=== PATIENT | female | born 1965 | race African-American/Black ===

== ENCOUNTER 2018-04-04 20:36 | Inpatient (IN) ==
[2018-04-04 21:24] LABS: Basophils % 0.2 % (0.0-0.8); Eosinophils # 0.2 10*3/uL (0.0-0.87); Eosinophils % 1.6 % (0.00-10.9); Hemoglobin 7.8 GM/DL (12.0-16.0); Immature Granulocytes % 0.5 %; Immature Granulocytes Absolute 0.06 #; Lymphocytes # 0.3 10*3/uL (1.4-4.0); Lymphocytes % 2.5 % (21.3-54.2); Mean Corpuscular HGB Conc 31.2 GM/DL (32-36); Mean Corpuscular Hemoglobin 27 PG (27-34); Mean Corpuscular Volume 87.7 FL (87-102); Mean Platelet Volume 11.9 FL (9.6-12.0); Monocytes # 0.6 10*3/uL (0.11-0.8); Monocytes % 5.6 % (1.7-12.7); Neutrophils % 89.6 % (38.7-73.9); Platelet Count 206 T/CUMM (130-400); Red Blood Count 2.85 MC/CUMM (3.8-5.5); Red Cell Distribution Width 18.6 % (9.3-17.3); White Blood Count 11.1 T/CUMM (4-12)
[2018-04-04 21:40] LABS: Alanine Aminotransferase 29 U/L (13-56); Albumin 3.2 G/DL (3.4-5.0); Alkaline Phosphatase 217 U/L (45-117); Aspartate Amino Transferase 30 U/L (0-37); Blood Urea Nitrogen 29 MG/DL (7-18); Calcium 9.6 MG/DL (8.5-10.1); Glucose 217 MG/DL (74-106); Osmolality,Calculated 289.5 MOS/KG (273-304); Potassium 3.4 MMOL/L (3.5-5.1); Sodium 139 MMOL/L (136-145); Total Protein 8.4 G/DL (6.4-8.3)
[2018-04-04 21:46] LABS: Lactic Acid 2.6 MMOL/L (0.4-2.0)
[2018-04-04] MEDS ORDERED: CEFEPIME 1,000 MG in SODIUM CHLORIDE 0.9% 100 ML IV STA (22:21)
[2018-04-04] MEDS ORDERED: VANCOMYCIN INJ 500 MG in SODIUM CHLORIDE 0.9% 100 ML IV STA (22:22)
[2018-04-04 23:01] LABS: Sedimentation Rate-Westergren 98 MM/HR (0-30)
[2018-04-04 23:05] LABS: Eosinophils 1 % (0-10); Lymphocytes 6 % (20-55); Platelet Estimate Adequate; Segmented Neutrophils 92 % (50-85); Total Cells Counted 100
[2018-04-04 23:06] LABS: Hypochromasia 1+; Microcytosis 1+
[2018-04-04] MEDS ORDERED: CINACALCET 30 MG TABLET PO SCH (23:45)
[2018-04-04] MEDS ORDERED: DEXTROSE 50% 25 GM/50 ML VIAL IV PRN (23:45)
[2018-04-04] MEDS ORDERED: GLUCAGON 1 MG VIAL IM PRN (23:45)
[2018-04-04] MEDS ORDERED: ALBUTEROL 2.5 MG/3 ML NEB RESP TX PRN (23:52)
[2018-04-04] MEDS ORDERED: FLUTICASONE/SALMETEROL 250-50 DISKUS 14 DOSE INH PRN (23:52)
[2018-04-05] MEDS: traZODone 50 MG TABLET PO SCH ×2 (02:04→21:10)
[2018-04-05] MEDS: ATORVASTATIN 40 MG TABLET PO SCH ×2 (02:04→21:10)
[2018-04-05] MEDS: DOCUSATE SODIUM 100 MG CAPSULE PO SCH ×3 (02:05→21:10)
[2018-04-05] MEDS: levETIRAcetam 500 MG TABLET PO SCH ×3 (02:05→21:10)
[2018-04-05 08:26] LABS: Albumin 2.4 G/DL (3.4-5.0); Bilirubin,Total 0.6 MG/DL (0.2-1.0); Calcium 9.2 MG/DL (8.5-10.1); Osmolality,Calculated 289.7 MOS/KG (273-304); Potassium 3.8 MMOL/L (3.5-5.1); Total Protein 6.9 G/DL (6.4-8.3)
[2018-04-05] MEDS: PARoxetine 20 MG TABLET PO SCH (09:11)
[2018-04-05] MEDS: INSULIN REGULAR 100 UNIT/ML SUBCUT SCH ×4 (09:11→21:11)
[2018-04-05] MEDS: ENOXAPARIN 30 MG/0.3 ML SYRINGE SUBCUT SCH (09:11)
[2018-04-05] MEDS: VALSARTAN 160 MG TABLET PO SCH (09:12)
[2018-04-05] MEDS: METOPROLOL TARTRATE 100 MG TABLET PO SCH ×2 (09:12→21:10)
[2018-04-05] MEDS: PANTOPRAZOLE 40 MG TABLET PO SCH (09:12)
[2018-04-05] MEDS: amLODIPine 10 MG TABLET PO SCH (09:13)
[2018-04-05] MEDS: SEVELAMER CARBONATE 800 MG TABLET PO SCH ×3 (09:13→16:26)
[2018-04-05 09:23] LABS: Basophils % 0.2 % (0.0-0.8); Eosinophils # 0.2 10*3/uL (0.0-0.87); Eosinophils % 1.8 % (0.00-10.9); Hematocrit 20.6 VOL% (35.7-47.0); Immature Granulocytes % 0.4 %; Immature Granulocytes Absolute 0.04 #; Lymphocytes # 0.3 10*3/uL (1.4-4.0); Lymphocytes % 3.4 % (21.3-54.2); Mean Corpuscular HGB Conc 31.1 GM/DL (32-36); Mean Corpuscular Hemoglobin 27 PG (27-34); Mean Platelet Volume 11.8 FL (9.6-12.0); Monocytes # 1.1 10*3/uL (0.11-0.8); Monocytes % 11.9 % (1.7-12.7); Neutrophils # 7.8 10*3/uL (1.4-7.4); Neutrophils % 82.3 % (38.7-73.9); Platelet Count 165 T/CUMM (130-400); Red Blood Count 2.34 MC/CUMM (3.8-5.5); Red Cell Distribution Width 18.5 % (9.3-17.3); White Blood Count 9.4 T/CUMM (4-12)
[2018-04-05 09:27] LABS: Hemoglobin 6.4 GM/DL (12.0-16.0)
[2018-04-05 09:39] LABS: Anisocytosis 1+; Eosinophils 1 % (0-10); Hypochromasia 1+; Lymphocytes 4 % (20-55); Metamyelocytes 1 %; Microcytosis 1+; Segmented Neutrophils 89 % (50-85); Total Cells Counted 100
[2018-04-05 09:40] LABS: Platelet Estimate Adequate
[2018-04-05] MEDS ORDERED: VANCOMYCIN INJ 750 MG in SODIUM CHLORIDE 0.9% 250 ML IV PRN (14:00)
[2018-04-05] MEDS ORDERED: SODIUM CHLORIDE 0.9% 1,000 ML IV PRN (17:28)
[2018-04-05] MEDS: ACETAMINOPHEN 325 MG TABLET PO PRN ×2 (17:40→21:44)
[2018-04-05] MEDS ORDERED: NON-FORMULARY MEDICATION (Esomeprazole Magnesium [Nexium] 40 MG) PO SCH (21:00)
[2018-04-05] MEDS: CEFEPIME 1,000 MG in SYRINGE 1 EACH IV SCH (21:12)
[2018-04-06] MEDS ORDERED: VANCOMYCIN INJ 500 MG in SODIUM CHLORIDE 0.9% 100 ML IV PRN (07:54)
[2018-04-06] MEDS: levETIRAcetam 500 MG TABLET PO SCH ×2 (08:28→21:52)
[2018-04-06] MEDS: PANTOPRAZOLE 40 MG TABLET PO SCH (08:28)
[2018-04-06] MEDS: amLODIPine 10 MG TABLET PO SCH (08:29)
[2018-04-06] MEDS: METOPROLOL TARTRATE 100 MG TABLET PO SCH ×2 (08:29→21:53)
[2018-04-06] MEDS: DOCUSATE SODIUM 100 MG CAPSULE PO SCH ×2 (08:29→21:53)
[2018-04-06] MEDS: VALSARTAN 160 MG TABLET PO SCH (08:29)
[2018-04-06] MEDS: PARoxetine 20 MG TABLET PO SCH (08:30)
[2018-04-06] MEDS: INSULIN REGULAR 100 UNIT/ML SUBCUT SCH ×4 (08:30→21:54)
[2018-04-06] MEDS: ENOXAPARIN 30 MG/0.3 ML SYRINGE SUBCUT SCH (08:30)
[2018-04-06] MEDS: SEVELAMER CARBONATE 800 MG TABLET PO SCH ×3 (08:30→16:35)
[2018-04-06 09:17] LABS: Basophils % 0.1 % (0.0-0.8); Eosinophils # 0.3 10*3/uL (0.0-0.87); Hematocrit 22.4 VOL% (35.7-47.0); Hemoglobin 7.1 GM/DL (12.0-16.0); Immature Granulocytes % 0.8 %; Immature Granulocytes Absolute 0.07 #; Lymphocytes # 0.3 10*3/uL (1.4-4.0); Lymphocytes % 3.7 % (21.3-54.2); Mean Corpuscular HGB Conc 31.7 GM/DL (32-36); Mean Corpuscular Hemoglobin 28 PG (27-34); Mean Corpuscular Volume 89.2 FL (87-102); Mean Platelet Volume 11.2 FL (9.6-12.0); Monocytes # 0.8 10*3/uL (0.11-0.8); Neutrophils # 6.8 10*3/uL (1.4-7.4); Neutrophils % 82.4 % (38.7-73.9); Platelet Count 148 T/CUMM (130-400); Red Blood Count 2.51 MC/CUMM (3.8-5.5); Red Cell Distribution Width 16.9 % (9.3-17.3); White Blood Count 8.3 T/CUMM (4-12)
[2018-04-06 09:38] LABS: Band Neutrophils 4 % (0-10); Eosinophils 3 % (0-10); Lymphocytes 6 % (20-55); Platelet Estimate Adequate; Segmented Neutrophils 79 % (50-85); Total Cells Counted 100
[2018-04-06 09:39] LABS: Anisocytosis 1+; Poikilocytosis Slight
[2018-04-06] MEDS ORDERED: EPOETIN ALFA 10,000 UNIT/1 ML VIAL IV PRN (10:51)
[2018-04-06] MEDS: ACETAMINOPHEN 325 MG TABLET PO PRN (15:23)
[2018-04-06] MEDS ORDERED: VANCOMYCIN INJ 500 MG in SODIUM CHLORIDE 0.9% 100 ML IV ONE (16:00)
[2018-04-06] MEDS ORDERED: SODIUM PHOSPHATE ENEMA 133 ML BOTTLE RECTAL PRN (20:03)
[2018-04-06 20:55] LABS: Hematocrit 29.6 VOL% (35.7-47.0)
[2018-04-06 21:01] LABS: Hemoglobin 9.7 GM/DL (12.0-16.0)
[2018-04-06] MEDS: CINACALCET 30 MG TABLET PO SCH (21:52)
[2018-04-06] MEDS: traZODone 50 MG TABLET PO SCH (21:53)
[2018-04-06] MEDS: ATORVASTATIN 40 MG TABLET PO SCH (21:54)
[2018-04-06] MEDS: CEFEPIME 1,000 MG in SYRINGE 1 EACH IV SCH (21:55)
[2018-04-06] MEDS: POLYETHYLENE GLYCOL POWDER 17 GM PACK PO SCH (21:55)
[2018-04-07 05:59] LABS: Basophils % 0.2 % (0.0-0.8); Eosinophils # 0.2 10*3/uL (0.0-0.87); Eosinophils % 1.8 % (0.00-10.9); Hematocrit 28.1 VOL% (35.7-47.0); Hemoglobin 9.2 GM/DL (12.0-16.0); Immature Granulocytes % 0.6 %; Immature Granulocytes Absolute 0.05 #; Lymphocytes # 0.3 10*3/uL (1.4-4.0); Lymphocytes % 3.6 % (21.3-54.2); Mean Corpuscular HGB Conc 32.7 GM/DL (32-36); Mean Corpuscular Hemoglobin 28 PG (27-34); Mean Corpuscular Volume 85.2 FL (87-102); Mean Platelet Volume 10.6 FL (9.6-12.0); Monocytes # 1.3 10*3/uL (0.11-0.8); Monocytes % 14.3 % (1.7-12.7); Neutrophils % 79.5 % (38.7-73.9); Platelet Count 149 T/CUMM (130-400); Red Cell Distribution Width 17.5 % (9.3-17.3); White Blood Count 8.8 T/CUMM (4-12)
[2018-04-07 06:22] LABS: Eosinophils 5 % (0-10); Hypochromasia 1+; Lymphocytes 3 % (20-55); Microcytosis Slight; Platelet Estimate Normal; Segmented Neutrophils 77 % (50-85); Total Cells Counted 100
[2018-04-07] MEDS: DOCUSATE SODIUM 100 MG CAPSULE PO SCH ×2 (09:06→20:50)
[2018-04-07] MEDS: VALSARTAN 160 MG TABLET PO SCH (09:06)
[2018-04-07] MEDS: PANTOPRAZOLE 40 MG TABLET PO SCH (09:07)
[2018-04-07] MEDS: POLYETHYLENE GLYCOL POWDER 17 GM PACK PO SCH (09:07)
[2018-04-07] MEDS: SEVELAMER CARBONATE 800 MG TABLET PO SCH ×3 (09:07→17:08)
[2018-04-07] MEDS: METOPROLOL TARTRATE 100 MG TABLET PO SCH ×2 (09:07→20:50)
[2018-04-07] MEDS: amLODIPine 10 MG TABLET PO SCH (09:07)
[2018-04-07] MEDS: levETIRAcetam 500 MG TABLET PO SCH ×2 (09:07→20:50)
[2018-04-07] MEDS: PARoxetine 20 MG TABLET PO SCH (09:07)
[2018-04-07] MEDS: ENOXAPARIN 30 MG/0.3 ML SYRINGE SUBCUT SCH (09:08)
[2018-04-07] MEDS: INSULIN REGULAR 100 UNIT/ML SUBCUT SCH ×4 (09:08→20:50)
[2018-04-07] MEDS: LACTULOSE 20 GM/30 ML UDCUP PO SCH ×2 (12:45→20:49)
[2018-04-07] MEDS: BUDESONIDE/FORMOTEROL 160-4.5 INHALER 6 GM INH SCH ×2 (12:50→20:57)
[2018-04-07] MEDS: ATORVASTATIN 40 MG TABLET PO SCH (20:49)
[2018-04-07] MEDS: traZODone 50 MG TABLET PO SCH (20:49)
[2018-04-07] MEDS: CEFEPIME 1,000 MG in SYRINGE 1 EACH IV SCH (20:50)
[2018-04-08] MEDS: POLYETHYLENE GLYCOL POWDER 17 GM PACK PO SCH (09:01)
[2018-04-08] MEDS: DOCUSATE SODIUM 100 MG CAPSULE PO SCH ×2 (09:02→21:38)
[2018-04-08] MEDS: LACTULOSE 20 GM/30 ML UDCUP PO SCH (09:02)
[2018-04-08] MEDS: VALSARTAN 160 MG TABLET PO SCH (09:02)
[2018-04-08] MEDS: PANTOPRAZOLE 40 MG TABLET PO SCH (09:02)
[2018-04-08] MEDS: SEVELAMER CARBONATE 800 MG TABLET PO SCH ×3 (09:03→16:54)
[2018-04-08] MEDS: levETIRAcetam 500 MG TABLET PO SCH ×2 (09:03→21:38)
[2018-04-08] MEDS: INSULIN REGULAR 100 UNIT/ML SUBCUT SCH ×4 (09:03→21:45)
[2018-04-08] MEDS: PARoxetine 20 MG TABLET PO SCH (09:03)
[2018-04-08] MEDS: amLODIPine 10 MG TABLET PO SCH (09:03)
[2018-04-08] MEDS: METOPROLOL TARTRATE 100 MG TABLET PO SCH ×2 (09:03→21:38)
[2018-04-08] MEDS: BUDESONIDE/FORMOTEROL 160-4.5 INHALER 6 GM INH SCH (09:04)
[2018-04-08] MEDS: ENOXAPARIN 30 MG/0.3 ML SYRINGE SUBCUT SCH (09:04)
[2018-04-08] MEDS ORDERED: POLYETHYLENE GLYCOL POWDER 255 GM BOTTLE PO ONE (14:30)
[2018-04-08] MEDS: AMPICILLIN INJ 2,000 MG in SODIUM CHLORIDE 0.9% 100 ML IV SCH (16:50)
[2018-04-08] MEDS ORDERED: POLYETHYLENE GLYCOL POWDER 255 GM BOTTLE PO PRN (20:00)
[2018-04-08] MEDS: ATORVASTATIN 40 MG TABLET PO SCH (21:37)
[2018-04-08] MEDS: CINACALCET 30 MG TABLET PO SCH (21:37)
[2018-04-08] MEDS: traZODone 50 MG TABLET PO SCH (21:38)
[2018-04-09] MEDS: BUDESONIDE/FORMOTEROL 160-4.5 INHALER 6 GM INH SCH ×3 (03:41→20:57)
[2018-04-09 04:20] LABS: Basophils % 0.1 % (0.0-0.8); Eosinophils # 0.3 10*3/uL (0.0-0.87); Eosinophils % 4.2 % (0.00-10.9); Hematocrit 27.2 VOL% (35.7-47.0); Hemoglobin 8.7 GM/DL (12.0-16.0); Immature Granulocytes % 0.3 %; Immature Granulocytes Absolute 0.02 #; Lymphocytes # 0.3 10*3/uL (1.4-4.0); Lymphocytes % 4.5 % (21.3-54.2); Mean Corpuscular Hemoglobin 28 PG (27-34); Mean Corpuscular Volume 86.9 FL (87-102); Mean Platelet Volume 10.7 FL (9.6-12.0); Monocytes % 14.7 % (1.7-12.7); Neutrophils # 5.1 10*3/uL (1.4-7.4); Neutrophils % 76.2 % (38.7-73.9); Platelet Count 174 T/CUMM (130-400); Red Blood Count 3.13 MC/CUMM (3.8-5.5); Red Cell Distribution Width 16.9 % (9.3-17.3); White Blood Count 6.7 T/CUMM (4-12)
[2018-04-09 05:03] LABS: Band Neutrophils 4 % (0-10); Eosinophils 8 % (0-10); Lymphocytes 8 % (20-55); Platelet Estimate Normal; Segmented Neutrophils 80 % (50-85); Total Cells Counted 100
[2018-04-09] MEDS: DOCUSATE SODIUM 100 MG CAPSULE PO SCH ×2 (09:57→20:54)
[2018-04-09] MEDS: PANTOPRAZOLE 40 MG TABLET PO SCH (09:57)
[2018-04-09] MEDS: levETIRAcetam 500 MG TABLET PO SCH ×2 (09:57→20:54)
[2018-04-09] MEDS: METOPROLOL TARTRATE 100 MG TABLET PO SCH ×2 (09:57→20:54)
[2018-04-09] MEDS: amLODIPine 10 MG TABLET PO SCH (09:57)
[2018-04-09] MEDS: PARoxetine 20 MG TABLET PO SCH (09:57)
[2018-04-09] MEDS: VALSARTAN 160 MG TABLET PO SCH (09:57)
[2018-04-09] MEDS: POLYETHYLENE GLYCOL POWDER 17 GM PACK PO SCH (09:58)
[2018-04-09] MEDS: INSULIN REGULAR 100 UNIT/ML SUBCUT SCH ×4 (09:58→20:55)
[2018-04-09] MEDS: SEVELAMER CARBONATE 800 MG TABLET PO SCH ×3 (09:58→16:42)
[2018-04-09] MEDS: ENOXAPARIN 30 MG/0.3 ML SYRINGE SUBCUT SCH (09:58)
[2018-04-09] MEDS ORDERED: POLYETHYLENE GLYCOL POWDER 255 GM BOTTLE PO ONE (10:05)
[2018-04-09] MEDS: AMPICILLIN INJ 2,000 MG in SODIUM CHLORIDE 0.9% 100 ML IV SCH (20:53)
[2018-04-09] MEDS: traZODone 50 MG TABLET PO SCH (20:54)
[2018-04-09] MEDS: ATORVASTATIN 40 MG TABLET PO SCH (20:55)
[2018-04-10 04:52] LABS: Calcium 8.8 MG/DL (8.5-10.1); Osmolality,Calculated 278.8 MOS/KG (273-304); Potassium 5.1 MMOL/L (3.5-5.1)
[2018-04-10] MEDS: VALSARTAN 160 MG TABLET PO SCH (09:48)
[2018-04-10] MEDS: PARoxetine 20 MG TABLET PO SCH (09:48)
[2018-04-10] MEDS: BUDESONIDE/FORMOTEROL 160-4.5 INHALER 6 GM INH SCH ×2 (09:48→20:56)
[2018-04-10] MEDS: ENOXAPARIN 30 MG/0.3 ML SYRINGE SUBCUT SCH (09:48)
[2018-04-10] MEDS: SEVELAMER CARBONATE 800 MG TABLET PO SCH ×3 (09:49→17:23)
[2018-04-10] MEDS: INSULIN REGULAR 100 UNIT/ML SUBCUT SCH ×4 (09:49→20:57)
[2018-04-10] MEDS: METOPROLOL TARTRATE 100 MG TABLET PO SCH ×2 (09:49→20:57)
[2018-04-10] MEDS: levETIRAcetam 500 MG TABLET PO SCH ×2 (09:49→20:56)
[2018-04-10] MEDS: amLODIPine 10 MG TABLET PO SCH (09:49)
[2018-04-10] MEDS: POLYETHYLENE GLYCOL POWDER 17 GM PACK PO SCH (09:49)
[2018-04-10] MEDS: PANTOPRAZOLE 40 MG TABLET PO SCH (09:49)
[2018-04-10] MEDS: DOCUSATE SODIUM 100 MG CAPSULE PO SCH ×2 (09:49→20:56)
[2018-04-10] MEDS: AMPICILLIN INJ 2,000 MG in SODIUM CHLORIDE 0.9% 100 ML IV SCH (20:55)
[2018-04-10] MEDS: traZODone 50 MG TABLET PO SCH (20:56)
[2018-04-10] MEDS: ATORVASTATIN 40 MG TABLET PO SCH (20:56)
[2018-04-11] MEDS: INSULIN REGULAR 100 UNIT/ML SUBCUT SCH ×4 (08:40→21:03)
[2018-04-11] MEDS: VALSARTAN 160 MG TABLET PO SCH (09:50)
[2018-04-11] MEDS: SEVELAMER CARBONATE 800 MG TABLET PO SCH ×3 (09:51→16:16)
[2018-04-11] MEDS: levETIRAcetam 500 MG TABLET PO SCH ×2 (09:51→20:47)
[2018-04-11] MEDS: amLODIPine 10 MG TABLET PO SCH (09:51)
[2018-04-11] MEDS: DOCUSATE SODIUM 100 MG CAPSULE PO SCH ×2 (09:55→20:47)
[2018-04-11] MEDS: POLYETHYLENE GLYCOL POWDER 17 GM PACK PO SCH (09:55)
[2018-04-11] MEDS: PANTOPRAZOLE 40 MG TABLET PO SCH (09:55)
[2018-04-11] MEDS: METOPROLOL TARTRATE 100 MG TABLET PO SCH ×2 (09:55→20:47)
[2018-04-11] MEDS: PARoxetine 20 MG TABLET PO SCH (09:55)
[2018-04-11] MEDS: BUDESONIDE/FORMOTEROL 160-4.5 INHALER 6 GM INH SCH ×2 (09:56→20:47)
[2018-04-11] MEDS: ENOXAPARIN 30 MG/0.3 ML SYRINGE SUBCUT SCH (09:56)
[2018-04-11] MEDS: traZODone 50 MG TABLET PO SCH (20:47)
[2018-04-11] MEDS: AMPICILLIN INJ 2,000 MG in SODIUM CHLORIDE 0.9% 100 ML IV SCH (20:47)
[2018-04-11] MEDS: ATORVASTATIN 40 MG TABLET PO SCH (20:47)
[2018-04-11] MEDS: CINACALCET 30 MG TABLET PO SCH (20:47)
[2018-04-12 06:27] LABS: Basophils % 0.3 % (0.0-0.8); Eosinophils # 0.3 10*3/uL (0.0-0.87); Eosinophils % 4.1 % (0.00-10.9); Hematocrit 29.2 VOL% (35.7-47.0); Hemoglobin 9.1 GM/DL (12.0-16.0); Immature Granulocytes % 0.5 %; Immature Granulocytes Absolute 0.03 #; Lymphocytes # 0.5 10*3/uL (1.4-4.0); Mean Corpuscular HGB Conc 31.2 GM/DL (32-36); Mean Corpuscular Hemoglobin 27 PG (27-34); Mean Platelet Volume 10.4 FL (9.6-12.0); Monocytes # 0.9 10*3/uL (0.11-0.8); Monocytes % 14.2 % (1.7-12.7); Neutrophils # 4.7 10*3/uL (1.4-7.4); Neutrophils % 73.9 % (38.7-73.9); Platelet Count 251 T/CUMM (130-400); Red Blood Count 3.32 MC/CUMM (3.8-5.5); Red Cell Distribution Width 16.2 % (9.3-17.3); White Blood Count 6.4 T/CUMM (4-12)
[2018-04-12 06:55] LABS: Calcium 9.2 MG/DL (8.5-10.1); Osmolality,Calculated 283.2 MOS/KG (273-304); Potassium 5.2 MMOL/L (3.5-5.1)
[2018-04-12] MEDS: PANTOPRAZOLE 40 MG TABLET PO SCH (08:00)
[2018-04-12] MEDS: METOPROLOL TARTRATE 100 MG TABLET PO SCH (08:00)
[2018-04-12] MEDS: VALSARTAN 160 MG TABLET PO SCH (08:00)
[2018-04-12] MEDS: SEVELAMER CARBONATE 800 MG TABLET PO SCH ×2 (08:01→11:43)
[2018-04-12] MEDS: DOCUSATE SODIUM 100 MG CAPSULE PO SCH (08:01)
[2018-04-12] MEDS: amLODIPine 10 MG TABLET PO SCH (08:01)
[2018-04-12] MEDS: PARoxetine 20 MG TABLET PO SCH (08:01)
[2018-04-12] MEDS: levETIRAcetam 500 MG TABLET PO SCH (08:02)
[2018-04-12] MEDS: ENOXAPARIN 30 MG/0.3 ML SYRINGE SUBCUT SCH (08:02)
[2018-04-12] MEDS: POLYETHYLENE GLYCOL POWDER 17 GM PACK PO SCH (08:02)
[2018-04-12] MEDS: INSULIN REGULAR 100 UNIT/ML SUBCUT SCH ×2 (08:02→11:43)
[2018-04-12] MEDS: BUDESONIDE/FORMOTEROL 160-4.5 INHALER 6 GM INH SCH (08:08)
[2018-04-12 11:32] VITALS: BP 134/57
== END 2018-04-12 14:20 | DRG 871 ==
LOC: EDBD → EDUNIT# → N.ED 20:36 → N.2E 23:45 → SUATTDRO 23:46 → N.2E 04-05 01:30
PROVIDERS: ADMIT Internal Medicine; ATTEND Internal Medicine

== ENCOUNTER 2018-05-02 18:03 | Inpatient (IN) ==
[2018-05-02] MEDS ORDERED: METOCLOPRAMIDE 10 MG/2 ML VIAL IV STA (18:46)
[2018-05-02 19:09] LABS: Basophils % 0.3 % (0.0-0.8); Eosinophils # 0.3 10*3/uL (0.0-0.87); Eosinophils % 2.9 % (0.00-10.9); Hematocrit 29.2 VOL% (35.7-47.0); Immature Granulocytes % 0.9 %; Immature Granulocytes Absolute 0.09 #; Lymphocytes # 0.3 10*3/uL (1.4-4.0); Lymphocytes % 2.7 % (21.3-54.2); Mean Corpuscular HGB Conc 30.8 GM/DL (32-36); Mean Corpuscular Hemoglobin 27 PG (27-34); Mean Platelet Volume 10.5 FL (9.6-12.0); Monocytes # 0.7 10*3/uL (0.11-0.8); Monocytes % 6.8 % (1.7-12.7); Neutrophils # 9.1 10*3/uL (1.4-7.4); Neutrophils % 86.4 % (38.7-73.9); Platelet Count 282 T/CUMM (130-400); Red Blood Count 3.32 MC/CUMM (3.8-5.5); Red Cell Distribution Width 18.1 % (9.3-17.3); White Blood Count 10.6 T/CUMM (4-12)
[2018-05-02 19:26] LABS: Alanine Aminotransferase < 6 U/L (13-56); Albumin 2.8 G/DL (3.4-5.0); Alkaline Phosphatase 280 U/L (45-117); Aspartate Amino Transferase 19 U/L (0-37); Blood Urea Nitrogen 41 MG/DL (7-18); Calcium 7.8 MG/DL (8.5-10.1); Glucose 208 MG/DL (74-106); Osmolality,Calculated 279.5 MOS/KG (273-304); Potassium 4.7 MMOL/L (3.5-5.1); Sodium 132 MMOL/L (136-145); Total Protein 8.2 G/DL (6.4-8.3)
[2018-05-02 19:56] LABS: Eosinophils 2 % (0-10); Lymphocytes 3 % (20-55); Platelet Estimate Normal; Polychromasia Few; Segmented Neutrophils 91 % (50-85); Total Cells Counted 100
[2018-05-02] MEDS ORDERED: FUROSEMIDE INJ 200 MG in SODIUM CHLORIDE 0.9% 50 ML IV STA (20:40)
[2018-05-02] MEDS ORDERED: ALBUTEROL/IPRATROPIUM 3 ML NEB RESP TX PRN (23:05)
[2018-05-02] MEDS ORDERED: DEXTROSE 50% 25 GM/50 ML VIAL IV PRN (23:05)
[2018-05-02] MEDS ORDERED: ONDANSETRON 4 MG/2 ML VIAL IV PRN (23:05)
[2018-05-02] MEDS ORDERED: oxyCODONE/ACETAMINOPHEN 5-325 MG TABLET PO PRN (23:05)
[2018-05-02] MEDS ORDERED: ACETAMINOPHEN 500 MG TABLET PO PRN (23:05)
[2018-05-02] MEDS ORDERED: ALBUTEROL 2.5 MG/3 ML NEB RESP TX PRN (23:05)
[2018-05-02] MEDS ORDERED: BUDESONIDE/FORMOTEROL 160-4.5 INHALER 6 GM INH PRN (23:05)
[2018-05-02] MEDS ORDERED: NITROGLYCERIN SL 0.4 MG TABLET SL PRN (23:05)
[2018-05-02] MEDS ORDERED: GLUCAGON 1 MG VIAL IM PRN (23:05)
[2018-05-03] MEDS: CALCITRIOL 0.5 MCG CAPSULE PO SCH ×3 (00:58→22:05)
[2018-05-03] MEDS: CALCIUM (CARBONATE) 500 MG TABLET PO SCH ×4 (00:58→22:05)
[2018-05-03] MEDS: INSULIN LISPRO 100 UNIT/ML SUBCUT SCH ×5 (00:59→22:06)
[2018-05-03] MEDS: traZODone 50 MG TABLET PO SCH ×2 (00:59→22:05)
[2018-05-03] MEDS: DOCUSATE SODIUM 100 MG CAPSULE PO SCH ×3 (00:59→22:05)
[2018-05-03] MEDS: CINACALCET 30 MG TABLET PO SCH (01:00)
[2018-05-03] MEDS: levETIRAcetam 500 MG TABLET PO SCH ×3 (01:00→22:06)
[2018-05-03] MEDS: ATORVASTATIN 40 MG TABLET PO SCH ×2 (01:01→22:06)
[2018-05-03 06:38] LABS: Basophils % 0.3 % (0.0-0.8); Eosinophils # 0.4 10*3/uL (0.0-0.87); Eosinophils % 5.3 % (0.00-10.9); Hematocrit 25.8 VOL% (35.7-47.0); Immature Granulocytes % 0.8 %; Immature Granulocytes Absolute 0.06 #; Lymphocytes # 0.5 10*3/uL (1.4-4.0); Lymphocytes % 7.1 % (21.3-54.2); Mean Corpuscular Hemoglobin 27 PG (27-34); Mean Platelet Volume 10.2 FL (9.6-12.0); Monocytes # 0.9 10*3/uL (0.11-0.8); Monocytes % 11.4 % (1.7-12.7); NRBC # 0.02 10*3/uL; Neutrophils # 5.7 10*3/uL (1.4-7.4); Neutrophils % 75.1 % (38.7-73.9); Platelet Count 276 T/CUMM (130-400); White Blood Count 7.6 T/CUMM (4-12)
[2018-05-03 08:10] LABS: Calcium 7.5 MG/DL (8.5-10.1); Osmolality,Calculated 286.1 MOS/KG (273-304); Potassium 4.5 MMOL/L (3.5-5.1)
[2018-05-03 08:11] LABS: Troponin I 0.271 NG/ML (0.00-0.045)
[2018-05-03] MEDS: VALSARTAN 160 MG TABLET PO SCH (08:48)
[2018-05-03] MEDS: LACTULOSE 20 GM/30 ML UDCUP PO SCH (08:48)
[2018-05-03] MEDS: amLODIPine 10 MG TABLET PO SCH (08:48)
[2018-05-03] MEDS: SEVELAMER CARBONATE 800 MG TABLET PO SCH ×3 (08:49→17:33)
[2018-05-03] MEDS: PANTOPRAZOLE 40 MG TABLET PO SCH (08:49)
[2018-05-03] MEDS: PARoxetine 20 MG TABLET PO SCH (08:49)
[2018-05-03] MEDS: METOPROLOL SUCCINATE XL 100 MG TABLET PO SCH (08:49)
[2018-05-03] MEDS: ENOXAPARIN 30 MG/0.3 ML SYRINGE SUBCUT SCH (08:50)
[2018-05-03] MEDS ORDERED: NON-FORMULARY MEDICATION (Esomeprazole Magnesium [Nexium] 40 MG) PO SCH (09:00)
[2018-05-03] MEDS ORDERED: INSULIN GLARGINE 100 UNIT/ML SUBCUT SCH (09:00)
[2018-05-04 07:02] LABS: Basophils % 0.3 % (0.0-0.8); Eosinophils # 0.4 10*3/uL (0.0-0.87); Eosinophils % 5.7 % (0.00-10.9); Hematocrit 26.7 VOL% (35.7-47.0); Hemoglobin 8.1 GM/DL (12.0-16.0); Immature Granulocytes % 0.5 %; Immature Granulocytes Absolute 0.04 #; Lymphocytes # 0.4 10*3/uL (1.4-4.0); Lymphocytes % 4.8 % (21.3-54.2); Mean Corpuscular HGB Conc 30.3 GM/DL (32-36); Mean Corpuscular Hemoglobin 27 PG (27-34); Mean Corpuscular Volume 90.2 FL (87-102); Mean Platelet Volume 10.3 FL (9.6-12.0); Monocytes # 0.9 10*3/uL (0.11-0.8); Monocytes % 11.5 % (1.7-12.7); NRBC # 0.02 10*3/uL; Neutrophils # 5.8 10*3/uL (1.4-7.4); Neutrophils % 77.2 % (38.7-73.9); Platelet Count 266 T/CUMM (130-400); Red Blood Count 2.96 MC/CUMM (3.8-5.5); Red Cell Distribution Width 18.8 % (9.3-17.3); White Blood Count 7.5 T/CUMM (4-12)
[2018-05-04 07:29] LABS: Eosinophils 5 % (0-10); Hypochromasia 1+; Lymphocytes 5 % (20-55); Macrocytosis Slight; Platelet Estimate Adequate; Polychromasia Slight; Segmented Neutrophils 81 % (50-85); Total Cells Counted 100
[2018-05-04 07:37] LABS: Osmolality,Calculated 279.1 MOS/KG (273-304); Potassium 5.1 MMOL/L (3.5-5.1)
[2018-05-04] MEDS ORDERED: INSULIN GLARGINE 100 UNIT/ML SUBCUT SCH (08:05)
[2018-05-04] MEDS: CALCITRIOL 0.5 MCG CAPSULE PO SCH ×2 (09:14→21:25)
[2018-05-04] MEDS: CALCIUM (CARBONATE) 500 MG TABLET PO SCH ×3 (09:14→21:25)
[2018-05-04] MEDS: SEVELAMER CARBONATE 800 MG TABLET PO SCH ×3 (09:14→18:06)
[2018-05-04] MEDS: VALSARTAN 160 MG TABLET PO SCH (09:15)
[2018-05-04] MEDS: PANTOPRAZOLE 40 MG TABLET PO SCH (09:15)
[2018-05-04] MEDS: cloNIDine 0.1 MG TABLET PO PRN (09:15)
[2018-05-04] MEDS: DOCUSATE SODIUM 100 MG CAPSULE PO SCH ×2 (09:15→21:25)
[2018-05-04] MEDS: PARoxetine 20 MG TABLET PO SCH (09:16)
[2018-05-04] MEDS: amLODIPine 10 MG TABLET PO SCH (09:16)
[2018-05-04] MEDS: levETIRAcetam 500 MG TABLET PO SCH ×2 (09:16→21:25)
[2018-05-04] MEDS: LACTULOSE 20 GM/30 ML UDCUP PO SCH (09:17)
[2018-05-04] MEDS: METOPROLOL SUCCINATE XL 100 MG TABLET PO SCH (09:17)
[2018-05-04] MEDS: ENOXAPARIN 30 MG/0.3 ML SYRINGE SUBCUT SCH (09:20)
[2018-05-04] MEDS: INSULIN LISPRO 100 UNIT/ML SUBCUT SCH ×3 (10:27→17:10)
[2018-05-04] MEDS: traZODone 50 MG TABLET PO SCH (21:25)
[2018-05-04] MEDS: ATORVASTATIN 40 MG TABLET PO SCH (21:25)
[2018-05-04] MEDS: CINACALCET 30 MG TABLET PO SCH (21:32)
[2018-05-05 06:54] LABS: Basophils % 0.4 % (0.0-0.8); Eosinophils # 0.5 10*3/uL (0.0-0.87); Eosinophils % 7.2 % (0.00-10.9); Hematocrit 27.2 VOL% (35.7-47.0); Hemoglobin 8.3 GM/DL (12.0-16.0); Immature Granulocytes Absolute 0.07 #; Lymphocytes # 0.4 10*3/uL (1.4-4.0); Lymphocytes % 5.8 % (21.3-54.2); Mean Corpuscular HGB Conc 30.5 GM/DL (32-36); Mean Corpuscular Hemoglobin 28 PG (27-34); Mean Corpuscular Volume 90.4 FL (87-102); Monocytes # 0.9 10*3/uL (0.11-0.8); Monocytes % 12.4 % (1.7-12.7); Neutrophils # 5.2 10*3/uL (1.4-7.4); Neutrophils % 73.2 % (38.7-73.9); Platelet Count 262 T/CUMM (130-400); Red Blood Count 3.01 MC/CUMM (3.8-5.5); Red Cell Distribution Width 18.5 % (9.3-17.3); White Blood Count 7.1 T/CUMM (4-12)
[2018-05-05 07:22] LABS: Calcium 8.8 MG/DL (8.5-10.1); Osmolality,Calculated 283.4 MOS/KG (273-304); Potassium 4.7 MMOL/L (3.5-5.1)
[2018-05-05] MEDS: ENOXAPARIN 30 MG/0.3 ML SYRINGE SUBCUT SCH (09:04)
[2018-05-05] MEDS: INSULIN LISPRO 100 UNIT/ML SUBCUT SCH ×3 (09:04→17:11)
[2018-05-05] MEDS: LACTULOSE 20 GM/30 ML UDCUP PO SCH (09:04)
[2018-05-05] MEDS: levETIRAcetam 500 MG TABLET PO SCH ×2 (09:05→21:09)
[2018-05-05] MEDS: CALCIUM (CARBONATE) 500 MG TABLET PO SCH ×3 (09:05→21:08)
[2018-05-05] MEDS: cloNIDine 0.1 MG TABLET PO PRN (09:05)
[2018-05-05] MEDS: VALSARTAN 160 MG TABLET PO SCH (09:05)
[2018-05-05] MEDS: DOCUSATE SODIUM 100 MG CAPSULE PO SCH ×2 (09:05→21:09)
[2018-05-05] MEDS: SEVELAMER CARBONATE 800 MG TABLET PO SCH ×3 (09:05→17:13)
[2018-05-05] MEDS: PARoxetine 20 MG TABLET PO SCH (09:05)
[2018-05-05] MEDS: CALCITRIOL 0.5 MCG CAPSULE PO SCH ×2 (09:05→21:08)
[2018-05-05] MEDS: METOPROLOL SUCCINATE XL 100 MG TABLET PO SCH (09:05)
[2018-05-05] MEDS: amLODIPine 10 MG TABLET PO SCH (09:06)
[2018-05-05] MEDS: PANTOPRAZOLE 40 MG TABLET PO SCH (09:06)
[2018-05-05] MEDS: INSULIN GLARGINE 100 UNIT/ML SUBCUT SCH (10:21)
[2018-05-05] MEDS: POLYETHYLENE GLYCOL POWDER 17 GM PACK PO SCH (14:09)
[2018-05-05] MEDS: traZODone 50 MG TABLET PO SCH (21:08)
[2018-05-05] MEDS: ATORVASTATIN 40 MG TABLET PO SCH (21:09)
[2018-05-06] MEDS ORDERED: BISACODYL 10 MG SUPP RECTAL ONE (10:49)
[2018-05-06] MEDS: ENOXAPARIN 30 MG/0.3 ML SYRINGE SUBCUT SCH (12:12)
[2018-05-06] MEDS: LACTULOSE 20 GM/30 ML UDCUP PO SCH (12:13)
[2018-05-06] MEDS: CALCIUM (CARBONATE) 500 MG TABLET PO SCH (12:13)
[2018-05-06] MEDS: PANTOPRAZOLE 40 MG TABLET PO SCH (12:13)
[2018-05-06] MEDS: SEVELAMER CARBONATE 800 MG TABLET PO SCH (12:13)
[2018-05-06] MEDS: amLODIPine 10 MG TABLET PO SCH (12:13)
[2018-05-06] MEDS: CALCITRIOL 0.5 MCG CAPSULE PO SCH (12:13)
[2018-05-06] MEDS: VALSARTAN 160 MG TABLET PO SCH (12:14)
[2018-05-06] MEDS: levETIRAcetam 500 MG TABLET PO SCH (12:14)
[2018-05-06] MEDS: PARoxetine 20 MG TABLET PO SCH (12:14)
[2018-05-06] MEDS: METOPROLOL SUCCINATE XL 100 MG TABLET PO SCH (12:14)
[2018-05-06] MEDS: DOCUSATE SODIUM 100 MG CAPSULE PO SCH (12:15)
[2018-05-06] MEDS: INSULIN GLARGINE 100 UNIT/ML SUBCUT SCH (12:15)
[2018-05-06] MEDS: POLYETHYLENE GLYCOL POWDER 17 GM PACK PO SCH (12:15)
[2018-05-06 13:56] VITALS: BP 163/74
== END 2018-05-06 16:00 | DRG 291 ==
LOC: EDUNIT# → EDBD → N.ED 18:03 → SUATTDRO 20:36 → N.EDINP 20:36 → N.5E 22:01
PROVIDERS: ADMIT Internal Medicine; ATTEND Internal Medicine

== ENCOUNTER 2018-05-31 11:08 | Inpatient (IN) ==
[2018-05-31] MEDS ORDERED: NALOXONE 0.4 MG/ML VIAL IV STA (11:29)
[2018-05-31 11:37] LABS: Basophils % 0.5 % (0.0-0.8); Eosinophils # 0.3 10*3/uL (0.0-0.87); Eosinophils % 4.4 % (0.00-10.9); Hematocrit 31.7 VOL% (35.7-47.0); Hemoglobin 9.5 GM/DL (12.0-16.0); Immature Granulocytes % 0.5 %; Immature Granulocytes Absolute 0.03 #; Lymphocytes # 0.3 10*3/uL (1.4-4.0); Lymphocytes % 4.6 % (21.3-54.2); Mean Corpuscular Hemoglobin 27 PG (27-34); Mean Corpuscular Volume 88.8 FL (87-102); Mean Platelet Volume 11.2 FL (9.6-12.0); Monocytes # 0.7 10*3/uL (0.11-0.8); Monocytes % 10.7 % (1.7-12.7); Neutrophils # 5.1 10*3/uL (1.4-7.4); Neutrophils % 79.3 % (38.7-73.9); Platelet Count 180 T/CUMM (130-400); Red Blood Count 3.57 MC/CUMM (3.8-5.5); Red Cell Distribution Width 18.6 % (9.3-17.3); White Blood Count 6.4 T/CUMM (4-12)
[2018-05-31 11:44] LABS: INR 1.1; PT Patient Result 11.7 SECS; Partial Thromboplastin Time 27.5 SECS (0-40)
[2018-05-31 11:50] LABS: Ammonia 20 UMOL/L (11-32)
[2018-05-31 11:54] LABS: Alanine Aminotransferase 23 U/L (13-56); Albumin 3.3 G/DL (3.4-5.0); Alkaline Phosphatase 177 U/L (45-117); Aspartate Amino Transferase 24 U/L (0-37); Blood Urea Nitrogen 35 MG/DL (7-18); Calcium 8.4 MG/DL (8.5-10.1); Glucose 92 MG/DL (74-106); Osmolality,Calculated 286.4 MOS/KG (273-304); Potassium 4.2 MMOL/L (3.5-5.1); Sodium 140 MMOL/L (136-145); Total Protein 7.3 G/DL (6.4-8.3)
[2018-05-31 11:59] LABS: Eosinophils 7 % (0-10); Hypochromasia 1+; Lymphocytes 5 % (20-55); Microcytosis 1+; Ovalocytes Slight; Platelet Estimate Adequate; Polychromasia Slight; Segmented Neutrophils 75 % (50-85); Total Cells Counted 100
[2018-05-31] MEDS ORDERED: DEXTROSE 50% 25 GM/50 ML SYRINGE IV ONE (14:03)
[2018-05-31] MEDS: DEXTROSE 5% NACL 0.9% 1,000 ML IV SCH (14:08)
[2018-05-31] MEDS ORDERED: DEXTROSE 50% 25 GM/50 ML VIAL IV STA (14:25)
[2018-05-31] MEDS ORDERED: ACETAMINOPHEN 325 MG TABLET PO PRN (14:37)
[2018-05-31] MEDS ORDERED: ONDANSETRON 4 MG/2 ML VIAL IV PRN (14:37)
[2018-05-31] MEDS ORDERED: GLUCAGON 1 MG VIAL IM PRN (22:16)
[2018-05-31] MEDS: DOCUSATE SODIUM 100 MG CAPSULE PO SCH (23:16)
[2018-06-01 05:57] LABS: Basophils % 0.3 % (0.0-0.8); Eosinophils # 0.2 10*3/uL (0.0-0.87); Eosinophils % 2.5 % (0.00-10.9); Hemoglobin 10.1 GM/DL (12.0-16.0); Immature Granulocytes % 0.4 %; Immature Granulocytes Absolute 0.03 #; Lymphocytes # 0.3 10*3/uL (1.4-4.0); Lymphocytes % 4.5 % (21.3-54.2); Mean Corpuscular HGB Conc 30.6 GM/DL (32-36); Mean Corpuscular Hemoglobin 27 PG (27-34); Mean Corpuscular Volume 87.1 FL (87-102); Mean Platelet Volume 11.5 FL (9.6-12.0); Monocytes # 0.8 10*3/uL (0.11-0.8); Monocytes % 10.8 % (1.7-12.7); Neutrophils # 5.6 10*3/uL (1.4-7.4); Neutrophils % 81.5 % (38.7-73.9); Platelet Count 209 T/CUMM (130-400); Red Blood Count 3.79 MC/CUMM (3.8-5.5); Red Cell Distribution Width 19.3 % (9.3-17.3); White Blood Count 6.9 T/CUMM (4-12)
[2018-06-01 06:25] LABS: Eosinophils 2 % (0-10); Hypochromasia 1+; Lymphocytes 4 % (20-55); Microcytosis 1+; Ovalocytes Slight; Platelet Estimate Adequate; Segmented Neutrophils 86 % (50-85); Total Cells Counted 100
[2018-06-01 06:27] LABS: Calcium 8.8 MG/DL (8.5-10.1); Osmolality,Calculated 293.5 MOS/KG (273-304); Potassium 4.4 MMOL/L (3.5-5.1)
[2018-06-01 06:30] LABS: Troponin I 0.215 NG/ML (0.00-0.045)
[2018-06-01] MEDS: CALCIUM (CARBONATE) 500 MG TABLET PO SCH ×3 (08:24→22:51)
[2018-06-01] MEDS: PARoxetine 20 MG TABLET PO SCH (08:24)
[2018-06-01] MEDS: SEVELAMER CARBONATE 800 MG TABLET PO SCH ×3 (08:24→17:10)
[2018-06-01] MEDS: amLODIPine 10 MG TABLET PO SCH (08:24)
[2018-06-01] MEDS: levETIRAcetam 500 MG TABLET PO SCH ×2 (08:24→22:52)
[2018-06-01] MEDS: DOCUSATE SODIUM 100 MG CAPSULE PO SCH ×2 (08:24→22:52)
[2018-06-01] MEDS: METOPROLOL SUCCINATE XL 100 MG TABLET PO SCH (08:24)
[2018-06-01] MEDS: CALCITRIOL 0.5 MCG CAPSULE PO SCH ×2 (08:24→22:52)
[2018-06-01] MEDS: PANTOPRAZOLE 40 MG TABLET PO SCH (08:25)
[2018-06-01] MEDS: LACTULOSE 20 GM/30 ML UDCUP PO SCH (08:25)
[2018-06-01] MEDS: INSULIN LISPRO 100 UNIT/ML SUBCUT SCH ×4 (08:37→23:03)
[2018-06-01] MEDS ORDERED: DOCUSATE SODIUM 100 MG CAPSULE PO SCH (09:00)
[2018-06-01] MEDS: DEXTROSE 5% NACL 0.9% 1,000 ML IV SCH (12:55)
[2018-06-01] MEDS ORDERED: DEXTROSE 50% 25 GM/50 ML VIAL IV PRN (22:32)
[2018-06-01] MEDS ORDERED: GLUCAGON 1 MG VIAL IM PRN (22:32)
[2018-06-01] MEDS: CINACALCET 30 MG TABLET PO SCH (22:51)
[2018-06-02 06:00] LABS: Basophils % 0.5 % (0.0-0.8); Eosinophils # 0.2 10*3/uL (0.0-0.87); Hematocrit 36.3 VOL% (35.7-47.0); Immature Granulocytes % 0.4 %; Immature Granulocytes Absolute 0.03 #; Lymphocytes # 0.5 10*3/uL (1.4-4.0); Lymphocytes % 5.9 % (21.3-54.2); Mean Corpuscular HGB Conc 30.3 GM/DL (32-36); Mean Corpuscular Hemoglobin 26 PG (27-34); Mean Corpuscular Volume 86.4 FL (87-102); Mean Platelet Volume 10.6 FL (9.6-12.0); Monocytes # 1.1 10*3/uL (0.11-0.8); Monocytes % 13.8 % (1.7-12.7); NRBC # 0.02 10*3/uL; Neutrophils # 5.9 10*3/uL (1.4-7.4); Neutrophils % 76.4 % (38.7-73.9); Platelet Count 224 T/CUMM (130-400); Red Cell Distribution Width 19.7 % (9.3-17.3); White Blood Count 7.7 T/CUMM (4-12)
[2018-06-02 06:30] LABS: Albumin 3.3 G/DL (3.4-5.0); Calcium 10.1 MG/DL (8.5-10.1); Osmolality,Calculated 289.4 MOS/KG (273-304); Potassium 4.4 MMOL/L (3.5-5.1); Total Protein 7.9 G/DL (6.4-8.3)
[2018-06-02] MEDS ORDERED: INSULIN GLARGINE 100 UNIT/ML SUBCUT SCH (09:00)
[2018-06-02] MEDS: LACTULOSE 20 GM/30 ML UDCUP PO SCH (09:54)
[2018-06-02] MEDS: DOCUSATE SODIUM 100 MG CAPSULE PO SCH ×2 (09:55→21:17)
[2018-06-02] MEDS: CALCIUM (CARBONATE) 500 MG TABLET PO SCH ×3 (09:55→21:17)
[2018-06-02] MEDS: PARoxetine 20 MG TABLET PO SCH (09:55)
[2018-06-02] MEDS: PANTOPRAZOLE 40 MG TABLET PO SCH (09:55)
[2018-06-02] MEDS: levETIRAcetam 500 MG TABLET PO SCH ×2 (09:55→21:17)
[2018-06-02] MEDS: INSULIN LISPRO 100 UNIT/ML SUBCUT SCH ×4 (09:55→21:17)
[2018-06-02] MEDS: amLODIPine 10 MG TABLET PO SCH (09:55)
[2018-06-02] MEDS: CALCITRIOL 0.5 MCG CAPSULE PO SCH ×2 (09:56→21:17)
[2018-06-02] MEDS: METOPROLOL SUCCINATE XL 100 MG TABLET PO SCH (09:56)
[2018-06-02] MEDS: SEVELAMER CARBONATE 800 MG TABLET PO SCH ×3 (09:56→17:16)
[2018-06-02] MEDS: INSULIN GLARGINE 100 UNIT/ML SUBCUT SCH (21:18)
[2018-06-03 05:19] LABS: Basophils % 0.5 % (0.0-0.8); Eosinophils # 0.4 10*3/uL (0.0-0.87); Eosinophils % 5.6 % (0.00-10.9); Hematocrit 33.7 VOL% (35.7-47.0); Hemoglobin 10.1 GM/DL (12.0-16.0); Immature Granulocytes % 0.5 %; Immature Granulocytes Absolute 0.03 #; Lymphocytes # 0.8 10*3/uL (1.4-4.0); Lymphocytes % 12.6 % (21.3-54.2); Mean Corpuscular Hemoglobin 27 PG (27-34); Mean Corpuscular Volume 88.7 FL (87-102); Mean Platelet Volume 10.8 FL (9.6-12.0); Monocytes # 0.7 10*3/uL (0.11-0.8); Monocytes % 10.5 % (1.7-12.7); Neutrophils # 4.5 10*3/uL (1.4-7.4); Neutrophils % 70.3 % (38.7-73.9); Platelet Count 202 T/CUMM (130-400); Red Cell Distribution Width 19.2 % (9.3-17.3); White Blood Count 6.5 T/CUMM (4-12)
[2018-06-03 05:39] LABS: Albumin 3.2 G/DL (3.4-5.0); Bilirubin,Total 1.4 MG/DL (0.2-1.0); Calcium 9.1 MG/DL (8.5-10.1); Osmolality,Calculated 294.1 MOS/KG (273-304); Potassium 4.9 MMOL/L (3.5-5.1); Total Protein 7.7 G/DL (6.4-8.3)
[2018-06-03] MEDS: CALCITRIOL 0.5 MCG CAPSULE PO SCH ×2 (08:21→21:09)
[2018-06-03] MEDS: amLODIPine 10 MG TABLET PO SCH (08:22)
[2018-06-03] MEDS: METOPROLOL SUCCINATE XL 100 MG TABLET PO SCH (08:22)
[2018-06-03] MEDS: LACTULOSE 20 GM/30 ML UDCUP PO SCH (08:22)
[2018-06-03] MEDS: PANTOPRAZOLE 40 MG TABLET PO SCH (08:22)
[2018-06-03] MEDS: PARoxetine 20 MG TABLET PO SCH (08:22)
[2018-06-03] MEDS: INSULIN LISPRO 100 UNIT/ML SUBCUT SCH ×4 (08:22→21:10)
[2018-06-03] MEDS: CALCIUM (CARBONATE) 500 MG TABLET PO SCH ×3 (08:22→21:09)
[2018-06-03] MEDS: DOCUSATE SODIUM 100 MG CAPSULE PO SCH ×2 (08:22→21:09)
[2018-06-03] MEDS: SEVELAMER CARBONATE 800 MG TABLET PO SCH ×3 (08:22→17:08)
[2018-06-03] MEDS: levETIRAcetam 500 MG TABLET PO SCH ×2 (08:22→21:13)
[2018-06-03] MEDS: INSULIN GLARGINE 100 UNIT/ML SUBCUT SCH (21:10)
[2018-06-04] MEDS: CINACALCET 30 MG TABLET PO SCH (00:32)
[2018-06-04 06:24] LABS: Basophils % 0.6 % (0.0-0.8); Eosinophils # 0.4 10*3/uL (0.0-0.87); Eosinophils % 5.7 % (0.00-10.9); Hematocrit 36.2 VOL% (35.7-47.0); Hemoglobin 10.9 GM/DL (12.0-16.0); Immature Granulocytes % 0.1 %; Immature Granulocytes Absolute 0.01 #; Lymphocytes # 0.8 10*3/uL (1.4-4.0); Lymphocytes % 11.7 % (21.3-54.2); Mean Corpuscular HGB Conc 30.1 GM/DL (32-36); Mean Corpuscular Hemoglobin 26 PG (27-34); Mean Corpuscular Volume 86.8 FL (87-102); Mean Platelet Volume 11.5 FL (9.6-12.0); Monocytes # 0.8 10*3/uL (0.11-0.8); Monocytes % 11.3 % (1.7-12.7); NRBC # 0.02 10*3/uL; Neutrophils # 4.8 10*3/uL (1.4-7.4); Neutrophils % 70.6 % (38.7-73.9); Platelet Count 210 T/CUMM (130-400); Red Blood Count 4.17 MC/CUMM (3.8-5.5); Red Cell Distribution Width 19.9 % (9.3-17.3); White Blood Count 6.8 T/CUMM (4-12)
[2018-06-04 06:29] LABS: Calcium 9.9 MG/DL (8.5-10.1); Osmolality,Calculated 289.7 MOS/KG (273-304)
[2018-06-04] MEDS: INSULIN LISPRO 100 UNIT/ML SUBCUT SCH ×4 (08:25→20:58)
[2018-06-04] MEDS: levETIRAcetam 500 MG TABLET PO SCH ×2 (08:47→21:01)
[2018-06-04] MEDS: METOPROLOL SUCCINATE XL 100 MG TABLET PO SCH (08:48)
[2018-06-04] MEDS: CALCITRIOL 0.5 MCG CAPSULE PO SCH ×2 (08:48→20:57)
[2018-06-04] MEDS: PANTOPRAZOLE 40 MG TABLET PO SCH (08:48)
[2018-06-04] MEDS: DOCUSATE SODIUM 100 MG CAPSULE PO SCH ×2 (08:48→20:57)
[2018-06-04] MEDS: LACTULOSE 20 GM/30 ML UDCUP PO SCH (08:48)
[2018-06-04] MEDS: SEVELAMER CARBONATE 800 MG TABLET PO SCH ×3 (08:48→16:58)
[2018-06-04] MEDS: PARoxetine 20 MG TABLET PO SCH (08:48)
[2018-06-04] MEDS: CALCIUM (CARBONATE) 500 MG TABLET PO SCH ×3 (08:48→20:57)
[2018-06-04] MEDS: ALBUTEROL/IPRATROPIUM 3 ML NEB RESP TX SCH ×4 (11:56→23:09)
[2018-06-04] MEDS: INSULIN GLARGINE 100 UNIT/ML SUBCUT SCH (20:58)
[2018-06-05] MEDS: ALBUTEROL/IPRATROPIUM 3 ML NEB RESP TX SCH ×5 (02:57→19:45)
[2018-06-05] MEDS: DEXTROSE 50% 25 GM/50 ML VIAL IV PRN (05:12)
[2018-06-05 08:18] LABS: Basophils % 0.4 % (0.0-0.8); Eosinophils # 0.4 10*3/uL (0.0-0.87); Eosinophils % 4.9 % (0.00-10.9); Immature Granulocytes % 0.5 %; Immature Granulocytes Absolute 0.04 #; Lymphocytes # 0.4 10*3/uL (1.4-4.0); Lymphocytes % 5.7 % (21.3-54.2); Mean Corpuscular HGB Conc 30.3 GM/DL (32-36); Mean Corpuscular Hemoglobin 27 PG (27-34); Mean Corpuscular Volume 87.8 FL (87-102); Mean Platelet Volume 11.1 FL (9.6-12.0); Monocytes # 0.6 10*3/uL (0.11-0.8); Monocytes % 8.3 % (1.7-12.7); Neutrophils # 6.2 10*3/uL (1.4-7.4); Neutrophils % 80.2 % (38.7-73.9); Platelet Count 206 T/CUMM (130-400); Red Blood Count 3.76 MC/CUMM (3.8-5.5); Red Cell Distribution Width 19.8 % (9.3-17.3); White Blood Count 7.7 T/CUMM (4-12)
[2018-06-05 08:40] LABS: Calcium 9.7 MG/DL (8.5-10.1); Osmolality,Calculated 295.2 MOS/KG (273-304); Potassium 5.5 MMOL/L (3.5-5.1)
[2018-06-05] MEDS: SEVELAMER CARBONATE 800 MG TABLET PO SCH ×3 (09:43→16:16)
[2018-06-05] MEDS: INSULIN LISPRO 100 UNIT/ML SUBCUT SCH ×4 (09:43→20:38)
[2018-06-05] MEDS: DOCUSATE SODIUM 100 MG CAPSULE PO SCH ×2 (09:44→20:37)
[2018-06-05] MEDS: PARoxetine 20 MG TABLET PO SCH (09:44)
[2018-06-05] MEDS: METOPROLOL SUCCINATE XL 100 MG TABLET PO SCH (09:44)
[2018-06-05] MEDS: CALCIUM (CARBONATE) 500 MG TABLET PO SCH ×3 (09:44→20:37)
[2018-06-05] MEDS: LACTULOSE 20 GM/30 ML UDCUP PO SCH (09:44)
[2018-06-05] MEDS: levETIRAcetam 500 MG TABLET PO SCH ×2 (09:44→20:37)
[2018-06-05] MEDS: PANTOPRAZOLE 40 MG TABLET PO SCH (09:44)
[2018-06-05] MEDS: CALCITRIOL 0.5 MCG CAPSULE PO SCH ×2 (09:44→20:37)
[2018-06-05] MEDS ORDERED: BISACODYL 10 MG SUPP RECTAL PRN (17:51)
[2018-06-05] MEDS: INSULIN GLARGINE 100 UNIT/ML SUBCUT SCH (20:37)
[2018-06-06] MEDS: ALBUTEROL/IPRATROPIUM 3 ML NEB RESP TX SCH ×7 (00:41→23:05)
[2018-06-06] MEDS: SEVELAMER CARBONATE 800 MG TABLET PO SCH ×3 (08:56→17:24)
[2018-06-06] MEDS: INSULIN LISPRO 100 UNIT/ML SUBCUT SCH ×4 (08:56→22:17)
[2018-06-06] MEDS: CALCIUM (CARBONATE) 500 MG TABLET PO SCH ×3 (13:15→22:17)
[2018-06-06] MEDS: DOCUSATE SODIUM 100 MG CAPSULE PO SCH ×2 (13:39→22:17)
[2018-06-06] MEDS: LACTULOSE 20 GM/30 ML UDCUP PO SCH (13:39)
[2018-06-06] MEDS: PARoxetine 20 MG TABLET PO SCH (13:40)
[2018-06-06] MEDS: levETIRAcetam 500 MG TABLET PO SCH ×2 (13:40→22:14)
[2018-06-06] MEDS: METOPROLOL SUCCINATE XL 100 MG TABLET PO SCH (13:41)
[2018-06-06] MEDS: CALCITRIOL 0.5 MCG CAPSULE PO SCH ×2 (13:41→22:14)
[2018-06-06] MEDS: PANTOPRAZOLE 40 MG TABLET PO SCH (13:41)
[2018-06-06] MEDS ORDERED: BISACODYL 5 MG TABLET PO ONE (18:12)
[2018-06-06] MEDS: INSULIN GLARGINE 100 UNIT/ML SUBCUT SCH (22:17)
[2018-06-06] MEDS: CINACALCET 30 MG TABLET PO SCH (23:02)
[2018-06-07] MEDS: ALBUTEROL/IPRATROPIUM 3 ML NEB RESP TX SCH ×5 (03:01→19:02)
[2018-06-07] MEDS: DEXTROSE 50% 25 GM/50 ML VIAL IV PRN ×2 (03:14→07:14)
[2018-06-07 05:29] LABS: Basophils % 0.5 % (0.0-0.8); Eosinophils # 0.4 10*3/uL (0.0-0.87); Eosinophils % 7.5 % (0.00-10.9); Hematocrit 32.3 VOL% (35.7-47.0); Hemoglobin 9.8 GM/DL (12.0-16.0); Immature Granulocytes % 0.5 %; Immature Granulocytes Absolute 0.03 #; Lymphocytes # 0.5 10*3/uL (1.4-4.0); Lymphocytes % 8.4 % (21.3-54.2); Mean Corpuscular HGB Conc 30.3 GM/DL (32-36); Mean Corpuscular Hemoglobin 27 PG (27-34); Mean Corpuscular Volume 88.5 FL (87-102); Mean Platelet Volume 10.3 FL (9.6-12.0); Monocytes # 0.7 10*3/uL (0.11-0.8); Monocytes % 13.2 % (1.7-12.7); Neutrophils # 3.8 10*3/uL (1.4-7.4); Neutrophils % 69.9 % (38.7-73.9); Platelet Count 165 T/CUMM (130-400); Red Blood Count 3.65 MC/CUMM (3.8-5.5); White Blood Count 5.5 T/CUMM (4-12)
[2018-06-07 05:49] LABS: Bilirubin,Total 1.1 MG/DL (0.2-1.0); Calcium 9.7 MG/DL (8.5-10.1); Potassium 5.7 MMOL/L (3.5-5.1)
[2018-06-07] MEDS: INSULIN LISPRO 100 UNIT/ML SUBCUT SCH ×3 (08:23→16:08)
[2018-06-07] MEDS ORDERED: SODIUM POLYSTYRENE SULFATE 15 GM/60 ML BOTTLE PO STA (08:33)
[2018-06-07] MEDS: CALCITRIOL 0.5 MCG CAPSULE PO SCH ×2 (09:14→20:59)
[2018-06-07] MEDS: PARoxetine 20 MG TABLET PO SCH (09:14)
[2018-06-07] MEDS: levETIRAcetam 500 MG TABLET PO SCH (09:14)
[2018-06-07] MEDS: CALCIUM (CARBONATE) 500 MG TABLET PO SCH ×3 (09:15→21:00)
[2018-06-07] MEDS: SEVELAMER CARBONATE 800 MG TABLET PO SCH ×3 (09:15→18:03)
[2018-06-07] MEDS: METOPROLOL SUCCINATE XL 100 MG TABLET PO SCH (09:15)
[2018-06-07] MEDS: LACTULOSE 20 GM/30 ML UDCUP PO SCH (09:15)
[2018-06-07] MEDS: ISOSORBIDE DINITRATE 20 MG TABLET PO SCH ×2 (09:15→21:00)
[2018-06-07] MEDS: PANTOPRAZOLE 40 MG TABLET PO SCH (09:15)
[2018-06-07] MEDS: DOCUSATE SODIUM 100 MG CAPSULE PO SCH ×2 (09:16→21:00)
[2018-06-07] MEDS: levETIRAcetam 250 MG TABLET PO SCH (21:00)
[2018-06-08] MEDS: ALBUTEROL/IPRATROPIUM 3 ML NEB RESP TX SCH ×6 (00:58→19:34)
[2018-06-08] MEDS: INSULIN LISPRO 100 UNIT/ML SUBCUT SCH ×2 (08:28→13:21)
[2018-06-08] MEDS: CALCIUM (CARBONATE) 500 MG TABLET PO SCH ×3 (08:49→20:24)
[2018-06-08] MEDS: ISOSORBIDE DINITRATE 20 MG TABLET PO SCH ×2 (08:50→20:24)
[2018-06-08] MEDS: METOPROLOL SUCCINATE XL 100 MG TABLET PO SCH (08:50)
[2018-06-08] MEDS: PANTOPRAZOLE 40 MG TABLET PO SCH (08:50)
[2018-06-08] MEDS: PARoxetine 20 MG TABLET PO SCH (08:51)
[2018-06-08] MEDS: CALCITRIOL 0.5 MCG CAPSULE PO SCH ×2 (08:51→20:24)
[2018-06-08] MEDS: SEVELAMER CARBONATE 800 MG TABLET PO SCH ×3 (08:51→16:24)
[2018-06-08] MEDS: DOCUSATE SODIUM 100 MG CAPSULE PO SCH ×2 (08:51→20:24)
[2018-06-08] MEDS: LACTULOSE 20 GM/30 ML UDCUP PO SCH (08:51)
[2018-06-08] MEDS: levETIRAcetam 250 MG TABLET PO SCH ×2 (10:27→20:24)
[2018-06-08] MEDS ORDERED: DOXAZOSIN 1 MG TABLET PO SCH (15:30)
[2018-06-08 16:18] LABS: Calcium 9.3 MG/DL (8.5-10.1); Osmolality,Calculated 284.1 MOS/KG (273-304)
[2018-06-08 17:13] LABS: Basophils % 0.4 % (0.0-0.8); Eosinophils # 0.3 10*3/uL (0.0-0.87); Eosinophils % 4.9 % (0.00-10.9); Hematocrit 31.4 VOL% (35.7-47.0); Hemoglobin 9.5 GM/DL (12.0-16.0); Immature Granulocytes % 0.2 %; Immature Granulocytes Absolute 0.01 #; Lymphocytes # 0.4 10*3/uL (1.4-4.0); Lymphocytes % 7.7 % (21.3-54.2); Mean Corpuscular HGB Conc 30.3 GM/DL (32-36); Mean Corpuscular Hemoglobin 27 PG (27-34); Mean Corpuscular Volume 89.5 FL (87-102); Mean Platelet Volume 11.5 FL (9.6-12.0); Monocytes # 0.7 10*3/uL (0.11-0.8); Monocytes % 12.6 % (1.7-12.7); Neutrophils # 3.9 10*3/uL (1.4-7.4); Neutrophils % 74.2 % (38.7-73.9); Platelet Count 152 T/CUMM (130-400); Red Blood Count 3.51 MC/CUMM (3.8-5.5); Red Cell Distribution Width 19.5 % (9.3-17.3); White Blood Count 5.3 T/CUMM (4-12)
[2018-06-08] MEDS: CINACALCET 30 MG TABLET PO SCH (21:11)
[2018-06-08] MEDS ORDERED: INSULIN LISPRO 100 UNIT/ML SUBCUT ONE (21:52)
[2018-06-08] MEDS: DOXAZOSIN 1 MG TABLET PO SCH (21:59)
[2018-06-09] MEDS: ALBUTEROL/IPRATROPIUM 3 ML NEB RESP TX SCH ×6 (00:16→20:07)
[2018-06-09 06:02] LABS: Calcium 9.5 MG/DL (8.5-10.1); Osmolality,Calculated 290.4 MOS/KG (273-304); Potassium 5.8 MMOL/L (3.5-5.1)
[2018-06-09] MEDS: CALCIUM (CARBONATE) 500 MG TABLET PO SCH ×3 (09:29→20:53)
[2018-06-09] MEDS: CALCITRIOL 0.5 MCG CAPSULE PO SCH ×2 (09:30→20:53)
[2018-06-09] MEDS: SEVELAMER CARBONATE 800 MG TABLET PO SCH ×3 (09:30→18:39)
[2018-06-09] MEDS: PANTOPRAZOLE 40 MG TABLET PO SCH (09:30)
[2018-06-09] MEDS: DOXAZOSIN 1 MG TABLET PO SCH ×2 (09:30→20:53)
[2018-06-09] MEDS: levETIRAcetam 250 MG TABLET PO SCH ×2 (09:30→20:53)
[2018-06-09] MEDS: LACTULOSE 20 GM/30 ML UDCUP PO SCH (09:31)
[2018-06-09] MEDS: ISOSORBIDE DINITRATE 20 MG TABLET PO SCH ×3 (09:31→21:12)
[2018-06-09] MEDS: DOCUSATE SODIUM 100 MG CAPSULE PO SCH ×2 (09:31→20:54)
[2018-06-09] MEDS: METOPROLOL SUCCINATE XL 100 MG TABLET PO SCH (09:31)
[2018-06-09] MEDS: PARoxetine 20 MG TABLET PO SCH (09:31)
[2018-06-09] MEDS: INSULIN LISPRO 100 UNIT/ML SUBCUT SCH ×2 (09:31→12:11)
[2018-06-09] MEDS: INSULIN GLARGINE 100 UNIT/ML SUBCUT SCH (12:12)
[2018-06-09 18:05] LABS: Troponin I 0.202 NG/ML (0.00-0.045)
[2018-06-10] MEDS: ALBUTEROL/IPRATROPIUM 3 ML NEB RESP TX SCH ×6 (00:13→19:39)
[2018-06-10 05:29] LABS: Basophils % 0.5 % (0.0-0.8); Eosinophils # 0.3 10*3/uL (0.0-0.87); Hematocrit 28.3 VOL% (35.7-47.0); Hemoglobin 8.2 GM/DL (12.0-16.0); Immature Granulocytes % 0.3 %; Immature Granulocytes Absolute 0.01 #; Lymphocytes # 0.5 10*3/uL (1.4-4.0); Lymphocytes % 13.6 % (21.3-54.2); Mean Corpuscular Hemoglobin 26 PG (27-34); Mean Corpuscular Volume 87.9 FL (87-102); Mean Platelet Volume 10.3 FL (9.6-12.0); Monocytes # 0.5 10*3/uL (0.11-0.8); Monocytes % 13.1 % (1.7-12.7); Neutrophils # 2.6 10*3/uL (1.4-7.4); Neutrophils % 65.5 % (38.7-73.9); Platelet Count 131 T/CUMM (130-400); Red Blood Count 3.22 MC/CUMM (3.8-5.5); Red Cell Distribution Width 19.1 % (9.3-17.3)
[2018-06-10 06:09] LABS: Albumin 2.9 G/DL (3.4-5.0); Bilirubin,Total 0.7 MG/DL (0.2-1.0); Calcium 8.9 MG/DL (8.5-10.1); Osmolality,Calculated 284.4 MOS/KG (273-304); Total Protein 6.8 G/DL (6.4-8.3)
[2018-06-10] MEDS ORDERED: SODIUM CHLORIDE 0.9% 1,000 ML IV PRN (07:13)
[2018-06-10] MEDS: INSULIN GLARGINE 100 UNIT/ML SUBCUT SCH (09:05)
[2018-06-10] MEDS: LACTULOSE 20 GM/30 ML UDCUP PO SCH (09:05)
[2018-06-10] MEDS: CALCIUM (CARBONATE) 500 MG TABLET PO SCH ×3 (09:06→20:22)
[2018-06-10] MEDS: PARoxetine 20 MG TABLET PO SCH (09:06)
[2018-06-10] MEDS: levETIRAcetam 250 MG TABLET PO SCH ×2 (09:06→21:05)
[2018-06-10] MEDS: DOXAZOSIN 1 MG TABLET PO SCH ×2 (09:06→21:31)
[2018-06-10] MEDS: SEVELAMER CARBONATE 800 MG TABLET PO SCH ×3 (09:07→17:51)
[2018-06-10] MEDS: PANTOPRAZOLE 40 MG TABLET PO SCH (09:07)
[2018-06-10] MEDS: DOCUSATE SODIUM 100 MG CAPSULE PO SCH ×2 (09:07→21:05)
[2018-06-10] MEDS: METOPROLOL SUCCINATE XL 100 MG TABLET PO SCH (09:07)
[2018-06-10] MEDS: ISOSORBIDE DINITRATE 20 MG TABLET PO SCH ×2 (09:07→20:22)
[2018-06-10] MEDS: INSULIN LISPRO 100 UNIT/ML SUBCUT SCH ×2 (09:11→13:07)
[2018-06-10] MEDS: CALCITRIOL 0.5 MCG CAPSULE PO SCH ×2 (09:14→20:23)
[2018-06-10 14:18] LABS: Hematocrit 36.3 VOL% (35.7-47.0); Hemoglobin 11.2 GM/DL (12.0-16.0)
[2018-06-10] MEDS ORDERED: DOXAZOSIN 1 MG TABLET PO ONE (18:00)
[2018-06-10] MEDS: CINACALCET 30 MG TABLET PO SCH (21:28)
[2018-06-11] MEDS: ALBUTEROL/IPRATROPIUM 3 ML NEB RESP TX SCH ×7 (00:10→22:30)
[2018-06-11 06:41] LABS: Basophils % 0.6 % (0.0-0.8); Eosinophils # 0.3 10*3/uL (0.0-0.87); Eosinophils % 6.1 % (0.00-10.9); Hematocrit 36.2 VOL% (35.7-47.0); Hemoglobin 11.2 GM/DL (12.0-16.0); Immature Granulocytes % 0.2 %; Immature Granulocytes Absolute 0.01 #; Lymphocytes # 0.4 10*3/uL (1.4-4.0); Lymphocytes % 8.2 % (21.3-54.2); Mean Corpuscular HGB Conc 30.9 GM/DL (32-36); Mean Corpuscular Hemoglobin 27 PG (27-34); Mean Corpuscular Volume 85.8 FL (87-102); Mean Platelet Volume 10.9 FL (9.6-12.0); Monocytes # 0.6 10*3/uL (0.11-0.8); Monocytes % 13.1 % (1.7-12.7); Neutrophils # 3.4 10*3/uL (1.4-7.4); Neutrophils % 71.8 % (38.7-73.9); Platelet Count 131 T/CUMM (130-400); Red Blood Count 4.22 MC/CUMM (3.8-5.5); Red Cell Distribution Width 18.3 % (9.3-17.3); White Blood Count 4.7 T/CUMM (4-12)
[2018-06-11 06:55] LABS: Calcium 9.2 MG/DL (8.5-10.1); Osmolality,Calculated 284.2 MOS/KG (273-304); Potassium 5.4 MMOL/L (3.5-5.1)
[2018-06-11] MEDS: ISOSORBIDE DINITRATE 20 MG TABLET PO SCH ×2 (08:57→20:57)
[2018-06-11] MEDS: CALCIUM (CARBONATE) 500 MG TABLET PO SCH ×3 (08:57→20:55)
[2018-06-11] MEDS: levETIRAcetam 250 MG TABLET PO SCH ×2 (08:58→20:55)
[2018-06-11] MEDS: DOXAZOSIN 1 MG TABLET PO SCH ×3 (08:58→20:52)
[2018-06-11] MEDS: SEVELAMER CARBONATE 800 MG TABLET PO SCH ×3 (08:58→17:14)
[2018-06-11] MEDS: LACTULOSE 20 GM/30 ML UDCUP PO SCH (08:58)
[2018-06-11] MEDS: PANTOPRAZOLE 40 MG TABLET PO SCH (08:58)
[2018-06-11] MEDS: DOCUSATE SODIUM 100 MG CAPSULE PO SCH ×2 (08:58→20:54)
[2018-06-11] MEDS: CALCITRIOL 0.5 MCG CAPSULE PO SCH ×2 (08:59→20:53)
[2018-06-11] MEDS: PARoxetine 20 MG TABLET PO SCH (08:59)
[2018-06-11] MEDS: INSULIN GLARGINE 100 UNIT/ML SUBCUT SCH (08:59)
[2018-06-11] MEDS: METOPROLOL SUCCINATE XL 100 MG TABLET PO SCH (08:59)
[2018-06-11] MEDS: INSULIN LISPRO 100 UNIT/ML SUBCUT SCH ×2 (09:00→12:48)
[2018-06-11] MEDS ORDERED: BISACODYL 5 MG TABLET PO ONE (11:24)
[2018-06-12] MEDS: ALBUTEROL/IPRATROPIUM 3 ML NEB RESP TX SCH ×7 (02:37→23:03)
[2018-06-12] MEDS: LACTULOSE 20 GM/30 ML UDCUP PO SCH (08:35)
[2018-06-12] MEDS: DOXAZOSIN 1 MG TABLET PO SCH ×3 (08:35→20:17)
[2018-06-12] MEDS: PARoxetine 20 MG TABLET PO SCH (08:36)
[2018-06-12] MEDS: CALCITRIOL 0.5 MCG CAPSULE PO SCH ×2 (08:36→20:15)
[2018-06-12] MEDS: SEVELAMER CARBONATE 800 MG TABLET PO SCH ×3 (08:36→17:25)
[2018-06-12] MEDS: ISOSORBIDE DINITRATE 20 MG TABLET PO SCH ×3 (08:36→20:16)
[2018-06-12] MEDS: levETIRAcetam 250 MG TABLET PO SCH ×2 (08:36→20:15)
[2018-06-12] MEDS: CALCIUM (CARBONATE) 500 MG TABLET PO SCH ×3 (08:36→20:18)
[2018-06-12] MEDS: METOPROLOL SUCCINATE XL 100 MG TABLET PO SCH (08:36)
[2018-06-12] MEDS: PANTOPRAZOLE 40 MG TABLET PO SCH (08:36)
[2018-06-12] MEDS: DOCUSATE SODIUM 100 MG CAPSULE PO SCH ×2 (08:37→20:15)
[2018-06-12] MEDS: INSULIN LISPRO 100 UNIT/ML SUBCUT SCH ×2 (08:42→12:42)
[2018-06-12] MEDS: INSULIN GLARGINE 100 UNIT/ML SUBCUT SCH ×3 (09:21→09:45)
[2018-06-12] MEDS ORDERED: BISACODYL 5 MG TABLET PO ONE (09:33)
[2018-06-13] MEDS: ALBUTEROL/IPRATROPIUM 3 ML NEB RESP TX SCH ×3 (03:47→11:16)
[2018-06-13] MEDS ORDERED: DOXAZOSIN 4 MG TABLET PO SCH (09:00)
[2018-06-13 10:01] LABS: Basophils % 0.2 % (0.0-0.8); Eosinophils # 0.3 10*3/uL (0.0-0.87); Eosinophils % 5.4 % (0.00-10.9); Hematocrit 34.7 VOL% (35.7-47.0); Hemoglobin 10.5 GM/DL (12.0-16.0); Immature Granulocytes % 0.4 %; Immature Granulocytes Absolute 0.02 #; Lymphocytes # 0.2 10*3/uL (1.4-4.0); Lymphocytes % 3.9 % (21.3-54.2); Mean Corpuscular HGB Conc 30.3 GM/DL (32-36); Mean Corpuscular Hemoglobin 26 PG (27-34); Mean Corpuscular Volume 86.5 FL (87-102); Mean Platelet Volume 10.3 FL (9.6-12.0); Monocytes # 0.6 10*3/uL (0.11-0.8); Monocytes % 10.9 % (1.7-12.7); Neutrophils # 4.3 10*3/uL (1.4-7.4); Neutrophils % 79.2 % (38.7-73.9); Platelet Count 133 T/CUMM (130-400); Red Blood Count 4.01 MC/CUMM (3.8-5.5); White Blood Count 5.4 T/CUMM (4-12)
[2018-06-13 10:21] LABS: Albumin 3.2 G/DL (3.4-5.0); Bilirubin,Total 0.5 MG/DL (0.2-1.0); Calcium 9.3 MG/DL (8.5-10.1); Osmolality,Calculated 287.2 MOS/KG (273-304); Potassium 4.8 MMOL/L (3.5-5.1); Total Protein 7.1 G/DL (6.4-8.3)
[2018-06-13 10:32] LABS: Eosinophils 4 % (0-10); Lymphocytes 5 % (20-55); Segmented Neutrophils 85 % (50-85); Total Cells Counted 100
[2018-06-13 10:33] LABS: Hypochromasia 1+; Microcytosis 1+; Platelet Estimate Adequate
[2018-06-13 10:37] VITALS: BP 163/72
[2018-06-13] MEDS: INSULIN LISPRO 100 UNIT/ML SUBCUT SCH (14:00)
[2018-06-13] MEDS: LACTULOSE 20 GM/30 ML UDCUP PO SCH (14:00)
[2018-06-13] MEDS: SEVELAMER CARBONATE 800 MG TABLET PO SCH (14:00)
[2018-06-13] MEDS: INSULIN GLARGINE 100 UNIT/ML SUBCUT SCH (14:01)
[2018-06-13] MEDS: CALCITRIOL 0.5 MCG CAPSULE PO SCH (14:01)
[2018-06-13] MEDS: ISOSORBIDE DINITRATE 20 MG TABLET PO SCH (14:01)
[2018-06-13] MEDS: DOCUSATE SODIUM 100 MG CAPSULE PO SCH (14:01)
[2018-06-13] MEDS: levETIRAcetam 250 MG TABLET PO SCH (14:01)
[2018-06-13] MEDS: PARoxetine 20 MG TABLET PO SCH (14:01)
[2018-06-13] MEDS: PANTOPRAZOLE 40 MG TABLET PO SCH (14:01)
[2018-06-13] MEDS: METOPROLOL SUCCINATE XL 100 MG TABLET PO SCH (14:01)
[2018-06-13] MEDS: CALCIUM (CARBONATE) 500 MG TABLET PO SCH (14:01)
[2018-06-13] MEDS ORDERED: DOXAZOSIN 1 MG TABLET PO SCH (21:00)
== END 2018-06-13 14:10 ==
LOC: EDBD → EDUNIT# → N.ED 11:08 → N.EDINP 13:46 → N.5E 14:41
PROVIDERS: ADMIT Internal Medicine; ATTEND Internal Medicine

== ENCOUNTER 2018-08-28 08:17 | Inpatient (IN) ==
[2018-08-28] MEDS ORDERED: LEVOFLOXACIN INJ 500 MG in PREMIX 1 EACH IV STA (08:36)
[2018-08-28 09:01] LABS: Basophils % 0.6 % (0.0-0.8); Eosinophils # 0.2 10*3/uL (0.0-0.87); Eosinophils % 2.9 % (0.00-10.9); Hematocrit 37.3 VOL% (35.7-47.0); Hemoglobin 11.4 GM/DL (12.0-16.0); Immature Granulocytes % 0.6 %; Immature Granulocytes Absolute 0.04 #; Lymphocytes # 0.2 10*3/uL (1.4-4.0); Lymphocytes % 2.2 % (21.3-54.2); Mean Corpuscular HGB Conc 30.6 GM/DL (32-36); Mean Corpuscular Hemoglobin 27 PG (27-34); Mean Corpuscular Volume 87.4 FL (87-102); Mean Platelet Volume 11.3 FL (9.6-12.0); Monocytes # 0.8 10*3/uL (0.11-0.8); Monocytes % 11.7 % (1.7-12.7); Neutrophils # 5.7 10*3/uL (1.4-7.4); Platelet Count 132 T/CUMM (130-400); Red Blood Count 4.27 MC/CUMM (3.8-5.5); Red Cell Distribution Width 19.7 % (9.3-17.3); White Blood Count 6.9 T/CUMM (4-12)
[2018-08-28 09:21] LABS: Albumin 3.2 G/DL (3.4-5.0); Band Neutrophils 6 % (0-10); Calcium 8.4 MG/DL (8.5-10.1); Eosinophils 4 % (0-10); Lymphocytes 5 % (20-55); Osmolality,Calculated 285.7 MOS/KG (273-304); Platelet Estimate Adequate; Potassium 4.6 MMOL/L (3.5-5.1); Segmented Neutrophils 82 % (50-85); Total Cells Counted 100; Total Protein 7.6 G/DL (6.4-8.3)
[2018-08-28 09:22] LABS: Anisocytosis 1+; Giant Platelets Few; Macrocytosis 1+
[2018-08-28] MEDS ORDERED: INSULIN LISPRO 100 UNIT/ML SUBCUT STA (09:56)
[2018-08-28] MEDS ORDERED: MORPHINE 4 MG/1 ML VIAL IV STA (11:37)
[2018-08-28] MEDS ORDERED: FUROSEMIDE 100 MG/10 ML VIAL IV STA (11:37)
[2018-08-28] MEDS ORDERED: FUROSEMIDE 20 MG/2 ML VIAL ONE (11:39)
[2018-08-28] MEDS ORDERED: FUROSEMIDE 100 MG/10 ML VIAL ONE (11:39)
[2018-08-28] MEDS ORDERED: MORPHINE 4 MG/1 ML VIAL ONE (11:39)
[2018-08-28] MEDS ORDERED: ONDANSETRON 4 MG/2 ML VIAL IV PRN (12:14)
[2018-08-28] MEDS ORDERED: DEXTROSE 50% 25 GM/50 ML VIAL IV PRN (12:14)
[2018-08-28] MEDS ORDERED: MORPHINE 4 MG/1 ML VIAL IV PRN (12:14)
[2018-08-28] MEDS ORDERED: GLUCAGON 1 MG VIAL IM PRN (12:14)
[2018-08-28] MEDS: ISOSORBIDE DINITRATE 20 MG TABLET PO SCH ×2 (16:01→21:17)
[2018-08-28] MEDS: CALCIUM (CARBONATE) 500 MG TABLET PO SCH ×2 (16:01→21:22)
[2018-08-28] MEDS: INSULIN LISPRO 100 UNIT/ML SUBCUT SCH ×2 (16:47→21:22)
[2018-08-28] MEDS: SIMETHICONE CHEW 80 MG TABLET PO SCH (16:47)
[2018-08-28] MEDS: SEVELAMER CARBONATE 800 MG TABLET PO SCH (16:47)
[2018-08-28] MEDS: ALBUTEROL 2.5 MG/3 ML NEB RESP TX PRN (16:50)
[2018-08-28] MEDS: ACETAMINOPHEN 325 MG TABLET PO PRN (17:53)
[2018-08-28] MEDS: ALBUTEROL/IPRATROPIUM 3 ML NEB RESP TX SCH (19:12)
[2018-08-28] MEDS: levETIRAcetam 250 MG TABLET PO SCH (21:16)
[2018-08-28] MEDS: CALCITRIOL 0.5 MCG CAPSULE PO SCH (21:17)
[2018-08-28] MEDS: DOXAZOSIN 1 MG TABLET PO SCH (21:17)
[2018-08-28] MEDS: ATORVASTATIN 40 MG TABLET PO SCH (21:17)
[2018-08-28] MEDS: DEXTROMETHORPHAN ER 6 MG/ML 90 ML/BOTTLE PO PRN (21:18)
[2018-08-28] MEDS: traZODone 50 MG TABLET PO SCH (21:18)
[2018-08-28] MEDS: BUDESONIDE/FORMOTEROL 160-4.5 INHALER 6 GM INH SCH (21:18)
[2018-08-28] MEDS: BENZONATATE 100 MG CAPSULE PO SCH (21:18)
[2018-08-29] MEDS: ACETAMINOPHEN 325 MG TABLET PO PRN ×3 (00:54→17:55)
[2018-08-29] MEDS: ALBUTEROL/IPRATROPIUM 3 ML NEB RESP TX SCH ×2 (07:15→20:25)
[2018-08-29] MEDS ORDERED: PANTOPRAZOLE 40 MG TABLET PO SCH (09:00)
[2018-08-29] MEDS: INSULIN LISPRO 100 UNIT/ML SUBCUT SCH ×4 (09:06→21:18)
[2018-08-29] MEDS: INSULIN GLARGINE 100 UNIT/ML SUBCUT SCH (09:07)
[2018-08-29] MEDS: CINACALCET 30 MG TABLET PO SCH (09:09)
[2018-08-29] MEDS: BENZONATATE 100 MG CAPSULE PO SCH ×2 (09:09→21:19)
[2018-08-29] MEDS: DOXAZOSIN 4 MG TABLET PO SCH (09:09)
[2018-08-29] MEDS: METOPROLOL SUCCINATE XL 100 MG TABLET PO SCH (09:10)
[2018-08-29] MEDS: PARoxetine 20 MG TABLET PO SCH (09:10)
[2018-08-29] MEDS: CALCITRIOL 0.5 MCG CAPSULE PO SCH ×2 (09:12→21:19)
[2018-08-29] MEDS: SEVELAMER CARBONATE 800 MG TABLET PO SCH ×3 (09:12→16:22)
[2018-08-29] MEDS: SIMETHICONE CHEW 80 MG TABLET PO SCH ×3 (09:12→16:22)
[2018-08-29] MEDS: CALCIUM (CARBONATE) 500 MG TABLET PO SCH ×3 (09:12→21:19)
[2018-08-29] MEDS: ISOSORBIDE DINITRATE 20 MG TABLET PO SCH ×3 (09:13→21:18)
[2018-08-29] MEDS: levETIRAcetam 250 MG TABLET PO SCH ×2 (09:13→21:18)
[2018-08-29] MEDS: PANTOPRAZOLE 40 MG TABLET PO SCH (09:13)
[2018-08-29] MEDS: BUDESONIDE/FORMOTEROL 160-4.5 INHALER 6 GM INH SCH ×2 (09:14→21:19)
[2018-08-29] MEDS: LACTULOSE 20 GM/30 ML UDCUP PO SCH (09:16)
[2018-08-29] MEDS ORDERED: EPOETIN ALFA 10,000 UNIT/1 ML VIAL IV PRN (12:00)
[2018-08-29] MEDS: DOXAZOSIN 1 MG TABLET PO SCH (21:18)
[2018-08-29] MEDS: traZODone 50 MG TABLET PO SCH (21:18)
[2018-08-29] MEDS: ATORVASTATIN 40 MG TABLET PO SCH (21:19)
[2018-08-30] MEDS: ALBUTEROL/IPRATROPIUM 3 ML NEB RESP TX SCH ×2 (06:56→19:45)
[2018-08-30] MEDS: CALCIUM (CARBONATE) 500 MG TABLET PO SCH ×3 (11:26→21:38)
[2018-08-30] MEDS: SEVELAMER CARBONATE 800 MG TABLET PO SCH ×3 (11:26→17:21)
[2018-08-30] MEDS: PARoxetine 20 MG TABLET PO SCH (11:26)
[2018-08-30] MEDS: PANTOPRAZOLE 40 MG TABLET PO SCH (11:27)
[2018-08-30] MEDS: SIMETHICONE CHEW 80 MG TABLET PO SCH ×3 (11:27→17:21)
[2018-08-30] MEDS: DOXAZOSIN 4 MG TABLET PO SCH (11:27)
[2018-08-30] MEDS: BENZONATATE 100 MG CAPSULE PO SCH ×2 (11:27→21:39)
[2018-08-30] MEDS: ISOSORBIDE DINITRATE 20 MG TABLET PO SCH ×3 (11:27→21:38)
[2018-08-30] MEDS: methylPREDNISolone SOD SUC 40 MG/1 ML VIAL IV SCH ×2 (11:28→21:36)
[2018-08-30] MEDS: CALCITRIOL 0.5 MCG CAPSULE PO SCH ×2 (11:28→21:39)
[2018-08-30] MEDS: INSULIN GLARGINE 100 UNIT/ML SUBCUT SCH (11:28)
[2018-08-30] MEDS: METOPROLOL SUCCINATE XL 100 MG TABLET PO SCH (11:28)
[2018-08-30] MEDS: BUDESONIDE/FORMOTEROL 160-4.5 INHALER 6 GM INH SCH ×2 (11:29→21:40)
[2018-08-30] MEDS: INSULIN LISPRO 100 UNIT/ML SUBCUT SCH ×3 (11:29→21:39)
[2018-08-30] MEDS: LACTULOSE 20 GM/30 ML UDCUP PO SCH (11:29)
[2018-08-30] MEDS: levETIRAcetam 250 MG TABLET PO SCH ×2 (12:04→21:39)
[2018-08-30] MEDS: traZODone 50 MG TABLET PO SCH (21:38)
[2018-08-30] MEDS: DOXAZOSIN 1 MG TABLET PO SCH (21:39)
[2018-08-30] MEDS: ATORVASTATIN 40 MG TABLET PO SCH (21:40)
[2018-08-30] MEDS: DEXTROMETHORPHAN ER 6 MG/ML 90 ML/BOTTLE PO PRN (22:50)
[2018-08-31 05:49] LABS: Hematocrit 37.1 VOL% (35.7-47.0); Hemoglobin 11.2 GM/DL (12.0-16.0); Immature Granulocytes % 0.3 %; Immature Granulocytes Absolute 0.02 #; Lymphocytes # 0.2 10*3/uL (1.4-4.0); Lymphocytes % 3.3 % (21.3-54.2); Mean Corpuscular HGB Conc 30.2 GM/DL (32-36); Mean Corpuscular Hemoglobin 27 PG (27-34); Mean Corpuscular Volume 88.1 FL (87-102); Mean Platelet Volume 10.9 FL (9.6-12.0); Monocytes # 0.4 10*3/uL (0.11-0.8); Monocytes % 7.2 % (1.7-12.7); Neutrophils # 5.1 10*3/uL (1.4-7.4); Neutrophils % 89.2 % (38.7-73.9); Platelet Count 177 T/CUMM (130-400); Red Blood Count 4.21 MC/CUMM (3.8-5.5); Red Cell Distribution Width 19.7 % (9.3-17.3); White Blood Count 5.7 T/CUMM (4-12)
[2018-08-31 06:27] LABS: Calcium 8.6 MG/DL (8.5-10.1); Osmolality,Calculated 279.1 MOS/KG (273-304); Potassium 5.2 MMOL/L (3.5-5.1)
[2018-08-31 06:35] LABS: Anisocytosis 1+; Band Neutrophils 3 % (0-10); Lymphocytes 6 % (20-55); Segmented Neutrophils 88 % (50-85); Total Cells Counted 100
[2018-08-31 06:36] LABS: Acanthocytes Few; Hypochromasia 2+; Platelet Estimate Adequate
[2018-08-31] MEDS: ALBUTEROL/IPRATROPIUM 3 ML NEB RESP TX SCH ×2 (07:49→19:12)
[2018-08-31] MEDS: INSULIN GLARGINE 100 UNIT/ML SUBCUT SCH (08:32)
[2018-08-31] MEDS: INSULIN LISPRO 100 UNIT/ML SUBCUT SCH ×4 (08:32→21:47)
[2018-08-31] MEDS: SIMETHICONE CHEW 80 MG TABLET PO SCH ×3 (08:32→16:24)
[2018-08-31] MEDS: BENZONATATE 100 MG CAPSULE PO SCH ×2 (08:33→21:47)
[2018-08-31] MEDS: PARoxetine 20 MG TABLET PO SCH (08:33)
[2018-08-31] MEDS: CINACALCET 30 MG TABLET PO SCH (08:33)
[2018-08-31] MEDS: ISOSORBIDE DINITRATE 20 MG TABLET PO SCH ×3 (08:33→21:47)
[2018-08-31] MEDS: CALCIUM (CARBONATE) 500 MG TABLET PO SCH ×3 (08:33→21:46)
[2018-08-31] MEDS: PANTOPRAZOLE 40 MG TABLET PO SCH (08:33)
[2018-08-31] MEDS: SEVELAMER CARBONATE 800 MG TABLET PO SCH ×3 (08:33→16:24)
[2018-08-31] MEDS: CALCITRIOL 0.5 MCG CAPSULE PO SCH ×2 (08:34→21:46)
[2018-08-31] MEDS: METOPROLOL SUCCINATE XL 100 MG TABLET PO SCH (08:35)
[2018-08-31] MEDS: LACTULOSE 20 GM/30 ML UDCUP PO SCH (08:35)
[2018-08-31] MEDS: DOXAZOSIN 4 MG TABLET PO SCH (08:35)
[2018-08-31] MEDS: levETIRAcetam 250 MG TABLET PO SCH ×2 (08:41→21:46)
[2018-08-31] MEDS: methylPREDNISolone SOD SUC 40 MG/1 ML VIAL IV SCH ×2 (08:41→21:47)
[2018-08-31] MEDS: BUDESONIDE/FORMOTEROL 160-4.5 INHALER 6 GM INH SCH ×2 (08:44→23:08)
[2018-08-31] MEDS: DEXTROMETHORPHAN ER 6 MG/ML 90 ML/BOTTLE PO PRN (12:57)
[2018-08-31] MEDS: DOXAZOSIN 1 MG TABLET PO SCH (21:45)
[2018-08-31] MEDS: ATORVASTATIN 40 MG TABLET PO SCH (21:45)
[2018-08-31] MEDS: traZODone 50 MG TABLET PO SCH (21:47)
[2018-09-01 06:08] LABS: Calcium 9.9 MG/DL (8.5-10.1); Osmolality,Calculated 272.8 MOS/KG (273-304); Potassium 4.7 MMOL/L (3.5-5.1)
[2018-09-01 06:24] LABS: Basophils % 0.2 % (0.0-0.8); Hematocrit 39.1 VOL% (35.7-47.0); Immature Granulocytes % 1.3 %; Immature Granulocytes Absolute 0.11 #; Lymphocytes # 0.3 10*3/uL (1.4-4.0); Lymphocytes % 3.4 % (21.3-54.2); Mean Corpuscular HGB Conc 30.2 GM/DL (32-36); Mean Corpuscular Hemoglobin 27 PG (27-34); Mean Corpuscular Volume 88.3 FL (87-102); Mean Platelet Volume 11.5 FL (9.6-12.0); Monocytes # 0.5 10*3/uL (0.11-0.8); Monocytes % 5.5 % (1.7-12.7); Neutrophils # 7.3 10*3/uL (1.4-7.4); Neutrophils % 89.6 % (38.7-73.9); Platelet Count 200 T/CUMM (130-400); Red Blood Count 4.43 MC/CUMM (3.8-5.5); Red Cell Distribution Width 19.4 % (9.3-17.3); White Blood Count 8.2 T/CUMM (4-12)
[2018-09-01 06:28] LABS: Hemoglobin 11.8 GM/DL (12.0-16.0)
[2018-09-01 06:41] LABS: Band Neutrophils 1 % (0-10); Lymphocytes 2 % (20-55); Platelet Estimate Normal; Segmented Neutrophils 90 % (50-85); Total Cells Counted 100
[2018-09-01 06:42] LABS: Anisocytosis 1+; Macrocytosis 1+; Ovalocytes 1+
[2018-09-01] MEDS: ALBUTEROL/IPRATROPIUM 3 ML NEB RESP TX SCH ×2 (07:25→19:40)
[2018-09-01] MEDS ORDERED: AZITHROMYCIN 250 MG TABLET PO ONE (09:30)
[2018-09-01] MEDS: cefTRIAXone 1,000 MG in SYRINGE 1 EACH IV SCH (09:48)
[2018-09-01] MEDS: LACTULOSE 20 GM/30 ML UDCUP PO SCH (09:48)
[2018-09-01] MEDS: INSULIN LISPRO 100 UNIT/ML SUBCUT SCH ×4 (09:49→21:20)
[2018-09-01] MEDS: INSULIN GLARGINE 100 UNIT/ML SUBCUT SCH (09:50)
[2018-09-01] MEDS: CALCIUM (CARBONATE) 500 MG TABLET PO SCH ×3 (09:51→21:15)
[2018-09-01] MEDS: CALCITRIOL 0.5 MCG CAPSULE PO SCH ×2 (09:51→21:17)
[2018-09-01] MEDS: SIMETHICONE CHEW 80 MG TABLET PO SCH ×3 (09:51→16:30)
[2018-09-01] MEDS: ISOSORBIDE DINITRATE 20 MG TABLET PO SCH ×3 (09:51→21:16)
[2018-09-01] MEDS: BENZONATATE 100 MG CAPSULE PO SCH ×2 (09:52→21:14)
[2018-09-01] MEDS: PANTOPRAZOLE 40 MG TABLET PO SCH (09:52)
[2018-09-01] MEDS: METOPROLOL SUCCINATE XL 100 MG TABLET PO SCH (09:52)
[2018-09-01] MEDS: SEVELAMER CARBONATE 800 MG TABLET PO SCH ×3 (09:52→16:30)
[2018-09-01] MEDS: DOXAZOSIN 4 MG TABLET PO SCH (09:52)
[2018-09-01] MEDS: PARoxetine 20 MG TABLET PO SCH (09:52)
[2018-09-01] MEDS: levETIRAcetam 250 MG TABLET PO SCH ×2 (09:57→21:15)
[2018-09-01] MEDS: BUDESONIDE/FORMOTEROL 160-4.5 INHALER 6 GM INH SCH ×2 (09:58→21:13)
[2018-09-01] MEDS: methylPREDNISolone SOD SUC 40 MG/1 ML VIAL IV SCH ×2 (09:58→21:20)
[2018-09-01] MEDS: DEXTROMETHORPHAN ER 6 MG/ML 90 ML/BOTTLE PO PRN ×2 (13:55→21:19)
[2018-09-01] MEDS: ACETAMINOPHEN 325 MG TABLET PO PRN (13:59)
[2018-09-01] MEDS: ATORVASTATIN 40 MG TABLET PO SCH (21:14)
[2018-09-01] MEDS: DOXAZOSIN 1 MG TABLET PO SCH (21:14)
[2018-09-01] MEDS: traZODone 50 MG TABLET PO SCH (21:18)
[2018-09-02] MEDS: ALBUTEROL/IPRATROPIUM 3 ML NEB RESP TX SCH ×4 (00:50→18:56)
[2018-09-02] MEDS: ALBUTEROL 2.5 MG/3 ML NEB RESP TX PRN (05:26)
[2018-09-02 05:38] LABS: Basophils % 0.2 % (0.0-0.8); Hematocrit 38.1 VOL% (35.7-47.0); Hemoglobin 11.6 GM/DL (12.0-16.0); Immature Granulocytes % 1.8 %; Immature Granulocytes Absolute 0.15 #; Lymphocytes # 0.3 10*3/uL (1.4-4.0); Lymphocytes % 3.7 % (21.3-54.2); Mean Corpuscular HGB Conc 30.4 GM/DL (32-36); Mean Corpuscular Hemoglobin 27 PG (27-34); Mean Platelet Volume 10.6 FL (9.6-12.0); Monocytes # 0.4 10*3/uL (0.11-0.8); Monocytes % 4.8 % (1.7-12.7); Neutrophils # 7.4 10*3/uL (1.4-7.4); Neutrophils % 89.5 % (38.7-73.9); Platelet Count 200 T/CUMM (130-400); Red Blood Count 4.38 MC/CUMM (3.8-5.5); White Blood Count 8.3 T/CUMM (4-12)
[2018-09-02 06:14] LABS: Lymphocytes 4 % (20-55); Metamyelocytes 2 %; Platelet Estimate Adequate; Segmented Neutrophils 93 % (50-85); Total Cells Counted 100
[2018-09-02 06:15] LABS: Calcium 10.3 MG/DL (8.5-10.1); Hypochromasia Slight; Osmolality,Calculated 286.2 MOS/KG (273-304); Polychromasia Few; Potassium 5.2 MMOL/L (3.5-5.1)
[2018-09-02] MEDS: PANTOPRAZOLE 40 MG TABLET PO SCH (08:45)
[2018-09-02] MEDS: CALCIUM (CARBONATE) 500 MG TABLET PO SCH ×4 (08:45→21:34)
[2018-09-02] MEDS: PARoxetine 20 MG TABLET PO SCH (08:46)
[2018-09-02] MEDS: BENZONATATE 100 MG CAPSULE PO SCH ×2 (08:46→21:29)
[2018-09-02] MEDS: SEVELAMER CARBONATE 800 MG TABLET PO SCH ×3 (08:52→16:45)
[2018-09-02] MEDS: AZITHROMYCIN 250 MG TABLET PO SCH (08:52)
[2018-09-02] MEDS: INSULIN LISPRO 100 UNIT/ML SUBCUT SCH ×4 (08:54→21:34)
[2018-09-02] MEDS: SIMETHICONE CHEW 80 MG TABLET PO SCH ×3 (08:54→16:45)
[2018-09-02] MEDS: INSULIN GLARGINE 100 UNIT/ML SUBCUT SCH (08:55)
[2018-09-02] MEDS: cefTRIAXone 1,000 MG in SYRINGE 1 EACH IV SCH (08:56)
[2018-09-02] MEDS: levETIRAcetam 250 MG TABLET PO SCH ×2 (08:56→21:32)
[2018-09-02] MEDS: methylPREDNISolone SOD SUC 40 MG/1 ML VIAL IV SCH ×2 (08:57→16:44)
[2018-09-02] MEDS: DEXTROMETHORPHAN ER 6 MG/ML 90 ML/BOTTLE PO PRN (08:58)
[2018-09-02] MEDS: BUDESONIDE/FORMOTEROL 160-4.5 INHALER 6 GM INH SCH ×2 (08:59→21:33)
[2018-09-02] MEDS: DOXAZOSIN 4 MG TABLET PO SCH (12:34)
[2018-09-02] MEDS: METOPROLOL SUCCINATE XL 100 MG TABLET PO SCH (12:34)
[2018-09-02] MEDS: CINACALCET 30 MG TABLET PO SCH (12:35)
[2018-09-02] MEDS: ISOSORBIDE DINITRATE 20 MG TABLET PO SCH ×3 (12:35→21:30)
[2018-09-02] MEDS: LACTULOSE 20 GM/30 ML UDCUP PO SCH (12:35)
[2018-09-02] MEDS: THEOPHYLLINE ER (24 HR) 300 MG CAPSULE PO SCH (12:35)
[2018-09-02] MEDS: CALCITRIOL 0.5 MCG CAPSULE PO SCH ×2 (12:36→21:34)
[2018-09-02] MEDS: guaiFENesin/CODEINE 5 ML LIQUID PO PRN (17:52)
[2018-09-02] MEDS: ACETAMINOPHEN 325 MG TABLET PO PRN (21:28)
[2018-09-02] MEDS: DOXAZOSIN 1 MG TABLET PO SCH (21:31)
[2018-09-02] MEDS: traZODone 50 MG TABLET PO SCH (21:32)
[2018-09-02] MEDS: ATORVASTATIN 40 MG TABLET PO SCH (21:32)
[2018-09-03] MEDS: ALBUTEROL/IPRATROPIUM 3 ML NEB RESP TX SCH ×4 (00:54→19:05)
[2018-09-03] MEDS: methylPREDNISolone SOD SUC 40 MG/1 ML VIAL IV SCH ×3 (00:58→16:42)
[2018-09-03] MEDS: guaiFENesin/CODEINE 5 ML LIQUID PO PRN ×2 (06:06→14:37)
[2018-09-03] MEDS: INSULIN LISPRO 100 UNIT/ML SUBCUT SCH ×4 (08:27→21:21)
[2018-09-03] MEDS: INSULIN GLARGINE 100 UNIT/ML SUBCUT SCH (08:28)
[2018-09-03] MEDS: DOXAZOSIN 4 MG TABLET PO SCH (08:28)
[2018-09-03] MEDS: levETIRAcetam 250 MG TABLET PO SCH ×2 (08:28→20:51)
[2018-09-03] MEDS: BENZONATATE 100 MG CAPSULE PO SCH ×2 (08:28→20:52)
[2018-09-03] MEDS: THEOPHYLLINE ER (24 HR) 300 MG CAPSULE PO SCH (08:28)
[2018-09-03] MEDS: SIMETHICONE CHEW 80 MG TABLET PO SCH ×3 (08:29→16:42)
[2018-09-03] MEDS: ISOSORBIDE DINITRATE 20 MG TABLET PO SCH ×3 (08:29→20:51)
[2018-09-03] MEDS: CALCITRIOL 0.5 MCG CAPSULE PO SCH ×2 (08:30→20:51)
[2018-09-03] MEDS: PARoxetine 20 MG TABLET PO SCH (08:30)
[2018-09-03] MEDS: CALCIUM (CARBONATE) 500 MG TABLET PO SCH ×3 (08:31→20:51)
[2018-09-03] MEDS: PANTOPRAZOLE 40 MG TABLET PO SCH (08:31)
[2018-09-03] MEDS: SEVELAMER CARBONATE 800 MG TABLET PO SCH ×3 (08:31→16:42)
[2018-09-03] MEDS: AZITHROMYCIN 250 MG TABLET PO SCH (08:31)
[2018-09-03] MEDS: METOPROLOL SUCCINATE XL 100 MG TABLET PO SCH (08:31)
[2018-09-03] MEDS: cefTRIAXone 1,000 MG in SYRINGE 1 EACH IV SCH (08:32)
[2018-09-03] MEDS: LACTULOSE 20 GM/30 ML UDCUP PO SCH (08:34)
[2018-09-03] MEDS: BUDESONIDE/FORMOTEROL 160-4.5 INHALER 6 GM INH SCH ×2 (08:37→20:55)
[2018-09-03] MEDS: DORNASE ALFA 2.5 MG/2.5 ML VIAL RESP TX SCH ×2 (13:13→19:05)
[2018-09-03] MEDS: ATORVASTATIN 40 MG TABLET PO SCH (20:51)
[2018-09-03] MEDS: DOXAZOSIN 1 MG TABLET PO SCH (20:51)
[2018-09-03] MEDS: ACETAMINOPHEN 325 MG TABLET PO PRN (20:52)
[2018-09-03] MEDS: traZODone 50 MG TABLET PO SCH (20:52)
[2018-09-04] MEDS: ALBUTEROL/IPRATROPIUM 3 ML NEB RESP TX SCH ×4 (00:05→19:50)
[2018-09-04] MEDS: methylPREDNISolone SOD SUC 40 MG/1 ML VIAL IV SCH ×3 (00:34→17:57)
[2018-09-04 06:23] LABS: Basophils % 0.1 % (0.0-0.8); Hematocrit 40.7 VOL% (35.7-47.0); Hemoglobin 12.4 GM/DL (12.0-16.0); Immature Granulocytes % 1.1 %; Immature Granulocytes Absolute 0.11 #; Lymphocytes # 0.2 10*3/uL (1.4-4.0); Lymphocytes % 2.2 % (21.3-54.2); Mean Corpuscular HGB Conc 30.5 GM/DL (32-36); Mean Corpuscular Hemoglobin 26 PG (27-34); Mean Corpuscular Volume 86.6 FL (87-102); Mean Platelet Volume 10.6 FL (9.6-12.0); Monocytes # 0.5 10*3/uL (0.11-0.8); Monocytes % 4.8 % (1.7-12.7); Neutrophils # 9.6 10*3/uL (1.4-7.4); Neutrophils % 91.8 % (38.7-73.9); Platelet Count 200 T/CUMM (130-400); Red Cell Distribution Width 19.1 % (9.3-17.3); White Blood Count 10.4 T/CUMM (4-12)
[2018-09-04 06:40] LABS: Albumin 2.9 G/DL (3.4-5.0); Bilirubin,Total 0.5 MG/DL (0.2-1.0); Calcium 9.3 MG/DL (8.5-10.1); Osmolality,Calculated 276.1 MOS/KG (273-304); Potassium 5.5 MMOL/L (3.5-5.1); Total Protein 7.3 G/DL (6.4-8.3)
[2018-09-04 06:43] LABS: Band Neutrophils 1 % (0-10); Hypochromasia 1+; Lymphocytes 2 % (20-55); Microcytosis 1+; Platelet Estimate Normal; Segmented Neutrophils 93 % (50-85); Total Cells Counted 100
[2018-09-04] MEDS: DORNASE ALFA 2.5 MG/2.5 ML VIAL RESP TX SCH ×2 (08:18→19:50)
[2018-09-04] MEDS: INSULIN LISPRO 100 UNIT/ML SUBCUT SCH ×4 (09:03→22:08)
[2018-09-04] MEDS: INSULIN GLARGINE 100 UNIT/ML SUBCUT SCH (09:04)
[2018-09-04] MEDS: SIMETHICONE CHEW 80 MG TABLET PO SCH ×3 (09:05→17:21)
[2018-09-04] MEDS: PANTOPRAZOLE 40 MG TABLET PO SCH (09:05)
[2018-09-04] MEDS: SEVELAMER CARBONATE 800 MG TABLET PO SCH ×3 (09:05→17:21)
[2018-09-04] MEDS: LACTULOSE 20 GM/30 ML UDCUP PO SCH (09:06)
[2018-09-04] MEDS: BENZONATATE 100 MG CAPSULE PO SCH ×2 (09:06→22:06)
[2018-09-04] MEDS: PARoxetine 20 MG TABLET PO SCH (09:06)
[2018-09-04] MEDS: DOXAZOSIN 4 MG TABLET PO SCH (09:06)
[2018-09-04] MEDS: AZITHROMYCIN 250 MG TABLET PO SCH (09:07)
[2018-09-04] MEDS: CALCITRIOL 0.5 MCG CAPSULE PO SCH ×2 (09:07→22:06)
[2018-09-04] MEDS: ISOSORBIDE DINITRATE 20 MG TABLET PO SCH ×3 (09:07→22:07)
[2018-09-04] MEDS: CALCIUM (CARBONATE) 500 MG TABLET PO SCH ×3 (09:07→22:06)
[2018-09-04] MEDS: METOPROLOL SUCCINATE XL 100 MG TABLET PO SCH (09:07)
[2018-09-04] MEDS: levETIRAcetam 250 MG TABLET PO SCH ×2 (09:08→22:06)
[2018-09-04] MEDS: THEOPHYLLINE ER (24 HR) 300 MG CAPSULE PO SCH (09:15)
[2018-09-04] MEDS: cefTRIAXone 1,000 MG in SYRINGE 1 EACH IV SCH (09:16)
[2018-09-04] MEDS: BUDESONIDE/FORMOTEROL 160-4.5 INHALER 6 GM INH SCH ×2 (09:23→22:08)
[2018-09-04] MEDS: guaiFENesin/CODEINE 5 ML LIQUID PO PRN (13:03)
[2018-09-04 17:40] LABS: Calcium 10.2 MG/DL (8.5-10.1); Osmolality,Calculated 267.5 MOS/KG (273-304)
[2018-09-04] MEDS: ATORVASTATIN 40 MG TABLET PO SCH (22:06)
[2018-09-04] MEDS: DOXAZOSIN 1 MG TABLET PO SCH (22:07)
[2018-09-04] MEDS: traZODone 50 MG TABLET PO SCH (22:07)
[2018-09-05] MEDS: methylPREDNISolone SOD SUC 40 MG/1 ML VIAL IV SCH ×3 (00:18→17:24)
[2018-09-05] MEDS: ALBUTEROL/IPRATROPIUM 3 ML NEB RESP TX SCH ×4 (01:06→19:05)
[2018-09-05] MEDS ORDERED: PROMETHAZINE 25 MG/1 ML VIAL IM ONE (07:00)
[2018-09-05] MEDS: DORNASE ALFA 2.5 MG/2.5 ML VIAL RESP TX SCH ×2 (07:08→19:05)
[2018-09-05] MEDS ORDERED: MIDAZOLAM 2 MG/2 ML VIAL IV ONE (07:30)
[2018-09-05] MEDS ORDERED: LIDOCAINE 1% 20 ML VIAL MISC INJ ONE (07:30)
[2018-09-05] MEDS ORDERED: LIDOCAINE 2% 20 ML VIAL RESP TX ONE (07:30)
[2018-09-05] MEDS: INSULIN LISPRO 100 UNIT/ML SUBCUT SCH ×4 (08:42→23:48)
[2018-09-05] MEDS: INSULIN GLARGINE 100 UNIT/ML SUBCUT SCH (08:42)
[2018-09-05] MEDS: cefTRIAXone 1,000 MG in SYRINGE 1 EACH IV SCH (08:43)
[2018-09-05] MEDS: BUDESONIDE/FORMOTEROL 160-4.5 INHALER 6 GM INH SCH ×2 (08:45→20:45)
[2018-09-05] MEDS ORDERED: DEXTROSE 50% 25 GM/50 ML VIAL IV PRN (12:57)
[2018-09-05] MEDS ORDERED: GLUCAGON 1 MG VIAL IM PRN (12:57)
[2018-09-05] MEDS: SIMETHICONE CHEW 80 MG TABLET PO SCH ×3 (13:18→17:23)
[2018-09-05] MEDS: SEVELAMER CARBONATE 800 MG TABLET PO SCH ×3 (13:18→17:24)
[2018-09-05] MEDS: ISOSORBIDE DINITRATE 20 MG TABLET PO SCH ×3 (13:19→20:46)
[2018-09-05] MEDS: AZITHROMYCIN 250 MG TABLET PO SCH (13:29)
[2018-09-05] MEDS: DOXAZOSIN 4 MG TABLET PO SCH (13:29)
[2018-09-05] MEDS: CALCITRIOL 0.5 MCG CAPSULE PO SCH ×2 (13:29→20:45)
[2018-09-05] MEDS: LACTULOSE 20 GM/30 ML UDCUP PO SCH (13:29)
[2018-09-05] MEDS: PANTOPRAZOLE 40 MG TABLET PO SCH (13:30)
[2018-09-05] MEDS: BENZONATATE 100 MG CAPSULE PO SCH ×2 (13:30→20:46)
[2018-09-05] MEDS: THEOPHYLLINE ER (24 HR) 300 MG CAPSULE PO SCH (13:30)
[2018-09-05] MEDS: CALCIUM (CARBONATE) 500 MG TABLET PO SCH ×3 (13:31→20:46)
[2018-09-05] MEDS: PARoxetine 20 MG TABLET PO SCH (13:31)
[2018-09-05] MEDS: levETIRAcetam 250 MG TABLET PO SCH ×2 (13:32→20:53)
[2018-09-05] MEDS: METOPROLOL SUCCINATE XL 100 MG TABLET PO SCH (13:32)
[2018-09-05] MEDS: CINACALCET 30 MG TABLET PO SCH (13:36)
[2018-09-05] MEDS: ATORVASTATIN 40 MG TABLET PO SCH (20:45)
[2018-09-05] MEDS: traZODone 50 MG TABLET PO SCH (20:46)
[2018-09-05] MEDS: DOXAZOSIN 1 MG TABLET PO SCH (20:46)
[2018-09-05 21:46] LABS: Basophils % 0.1 % (0.0-0.8); Hematocrit 41.7 VOL% (35.7-47.0); Hemoglobin 13.1 GM/DL (12.0-16.0); Immature Granulocytes Absolute 0.14 #; Lymphocytes # 0.1 10*3/uL (1.4-4.0); Lymphocytes % 0.8 % (21.3-54.2); Mean Corpuscular HGB Conc 31.4 GM/DL (32-36); Mean Corpuscular Hemoglobin 27 PG (27-34); Mean Corpuscular Volume 85.5 FL (87-102); Monocytes # 1.3 10*3/uL (0.11-0.8); Monocytes % 9.9 % (1.7-12.7); Neutrophils # 11.8 10*3/uL (1.4-7.4); Neutrophils % 88.2 % (38.7-73.9); Platelet Count 209 T/CUMM (130-400); Red Blood Count 4.88 MC/CUMM (3.8-5.5); Red Cell Distribution Width 20.1 % (9.3-17.3); White Blood Count 13.4 T/CUMM (4-12)
[2018-09-05 22:06] LABS: Lymphocytes 2 % (20-55); Segmented Neutrophils 96 % (50-85); Total Cells Counted 100
[2018-09-05 22:07] LABS: Anisocytosis 1+; Microcytosis 1+; Platelet Estimate Normal
[2018-09-05 22:09] LABS: Albumin 2.9 G/DL (3.4-5.0); Bilirubin,Total 0.5 MG/DL (0.2-1.0); Calcium 10.4 MG/DL (8.5-10.1); Osmolality,Calculated 286.4 MOS/KG (273-304); Potassium 5.7 MMOL/L (3.5-5.1); Total Protein 7.7 G/DL (6.4-8.3)
[2018-09-06] MEDS: ALBUTEROL/IPRATROPIUM 3 ML NEB RESP TX SCH ×4 (00:04→19:06)
[2018-09-06] MEDS: INSULIN LISPRO 100 UNIT/ML SUBCUT SCH ×6 (00:12→21:54)
[2018-09-06] MEDS: methylPREDNISolone SOD SUC 40 MG/1 ML VIAL IV SCH ×4 (00:41→23:44)
[2018-09-06] MEDS: DORNASE ALFA 2.5 MG/2.5 ML VIAL RESP TX SCH ×2 (07:20→19:06)
[2018-09-06] MEDS: INSULIN GLARGINE 100 UNIT/ML SUBCUT SCH (07:37)
[2018-09-06] MEDS: SEVELAMER CARBONATE 800 MG TABLET PO SCH ×3 (07:39→17:26)
[2018-09-06] MEDS: PANTOPRAZOLE 40 MG TABLET PO SCH (07:54)
[2018-09-06] MEDS ORDERED: INSULIN LISPRO 100 UNIT/ML SUBCUT SCH (08:00)
[2018-09-06] MEDS: cefTRIAXone 1,000 MG in SYRINGE 1 EACH IV SCH (08:15)
[2018-09-06] MEDS: SIMETHICONE CHEW 80 MG TABLET PO SCH ×3 (08:16→17:26)
[2018-09-06] MEDS: DOXAZOSIN 4 MG TABLET PO SCH (08:17)
[2018-09-06] MEDS: ISOSORBIDE DINITRATE 20 MG TABLET PO SCH ×3 (08:18→21:52)
[2018-09-06] MEDS: BENZONATATE 100 MG CAPSULE PO SCH ×2 (08:18→21:52)
[2018-09-06] MEDS: levETIRAcetam 250 MG TABLET PO SCH ×2 (08:18→21:55)
[2018-09-06] MEDS: CALCITRIOL 0.5 MCG CAPSULE PO SCH ×2 (08:18→21:53)
[2018-09-06] MEDS: CALCIUM (CARBONATE) 500 MG TABLET PO SCH ×3 (08:19→21:53)
[2018-09-06] MEDS: PARoxetine 20 MG TABLET PO SCH (08:19)
[2018-09-06] MEDS: BUDESONIDE/FORMOTEROL 160-4.5 INHALER 6 GM INH SCH ×2 (08:20→21:55)
[2018-09-06] MEDS: METOPROLOL SUCCINATE XL 100 MG TABLET PO SCH (08:20)
[2018-09-06] MEDS: THEOPHYLLINE ER (24 HR) 300 MG CAPSULE PO SCH (08:51)
[2018-09-06] MEDS: LACTULOSE 20 GM/30 ML UDCUP PO SCH (10:02)
[2018-09-06] MEDS: CEFEPIME 1,000 MG in SYRINGE 1 EACH IV SCH (12:18)
[2018-09-06] MEDS: DOXAZOSIN 1 MG TABLET PO SCH (21:53)
[2018-09-06] MEDS: traZODone 50 MG TABLET PO SCH (21:53)
[2018-09-06] MEDS: ATORVASTATIN 40 MG TABLET PO SCH (21:54)
[2018-09-07] MEDS: ALBUTEROL/IPRATROPIUM 3 ML NEB RESP TX SCH ×4 (00:27→19:08)
[2018-09-07 05:13] LABS: Basophils % 0.2 % (0.0-0.8); Hematocrit 40.6 VOL% (35.7-47.0); Hemoglobin 12.8 GM/DL (12.0-16.0); Immature Granulocytes % 0.9 %; Immature Granulocytes Absolute 0.12 #; Lymphocytes # 0.2 10*3/uL (1.4-4.0); Lymphocytes % 1.2 % (21.3-54.2); Mean Corpuscular HGB Conc 31.5 GM/DL (32-36); Mean Corpuscular Hemoglobin 27 PG (27-34); Mean Corpuscular Volume 84.9 FL (87-102); Mean Platelet Volume 10.4 FL (9.6-12.0); Monocytes # 0.7 10*3/uL (0.11-0.8); Monocytes % 5.5 % (1.7-12.7); Neutrophils # 11.8 10*3/uL (1.4-7.4); Neutrophils % 92.2 % (38.7-73.9); Osmolality,Calculated 291.6 MOS/KG (273-304); Platelet Count 182 T/CUMM (130-400); Potassium 5.9 MMOL/L (3.5-5.1); Red Blood Count 4.78 MC/CUMM (3.8-5.5); Red Cell Distribution Width 19.4 % (9.3-17.3); White Blood Count 12.8 T/CUMM (4-12)
[2018-09-07 05:39] LABS: Hypochromasia 1+; Lymphocytes 1 % (20-55); Microcytosis Slight; Ovalocytes Slight; Platelet Estimate Adequate; Segmented Neutrophils 93 % (50-85); Total Cells Counted 100
[2018-09-07] MEDS: CEFEPIME 1,000 MG in SYRINGE 1 EACH IV SCH ×2 (05:58→16:45)
[2018-09-07] MEDS: DORNASE ALFA 2.5 MG/2.5 ML VIAL RESP TX SCH ×2 (06:51→19:08)
[2018-09-07] MEDS: INSULIN LISPRO 100 UNIT/ML SUBCUT SCH ×4 (07:34→22:42)
[2018-09-07] MEDS ORDERED: INSULIN GLARGINE 100 UNIT/ML SUBCUT SCH (09:00)
[2018-09-07] MEDS: SEVELAMER CARBONATE 800 MG TABLET PO SCH ×3 (09:30→16:43)
[2018-09-07] MEDS: SIMETHICONE CHEW 80 MG TABLET PO SCH ×3 (09:31→16:43)
[2018-09-07] MEDS: PANTOPRAZOLE 40 MG TABLET PO SCH (09:31)
[2018-09-07] MEDS: ISOSORBIDE DINITRATE 20 MG TABLET PO SCH ×3 (13:03→22:40)
[2018-09-07] MEDS: CALCIUM (CARBONATE) 500 MG TABLET PO SCH ×3 (13:03→22:39)
[2018-09-07] MEDS: METOPROLOL SUCCINATE XL 100 MG TABLET PO SCH (13:04)
[2018-09-07] MEDS: CINACALCET 30 MG TABLET PO SCH (13:04)
[2018-09-07] MEDS: DOXAZOSIN 4 MG TABLET PO SCH ×2 (13:04→22:40)
[2018-09-07] MEDS: PARoxetine 20 MG TABLET PO SCH (13:05)
[2018-09-07] MEDS: BENZONATATE 100 MG CAPSULE PO SCH (13:05)
[2018-09-07] MEDS: CALCITRIOL 0.5 MCG CAPSULE PO SCH ×2 (13:05→22:38)
[2018-09-07] MEDS: LACTULOSE 20 GM/30 ML UDCUP PO SCH (13:06)
[2018-09-07] MEDS: levETIRAcetam 250 MG TABLET PO SCH ×2 (13:06→22:39)
[2018-09-07] MEDS: THEOPHYLLINE ER (24 HR) 300 MG CAPSULE PO SCH (13:06)
[2018-09-07] MEDS: BUDESONIDE/FORMOTEROL 160-4.5 INHALER 6 GM INH SCH (13:07)
[2018-09-07] MEDS: methylPREDNISolone SOD SUC 40 MG/1 ML VIAL IV SCH ×2 (13:08→16:44)
[2018-09-07] MEDS: guaiFENesin/CODEINE 5 ML LIQUID PO PRN (16:48)
[2018-09-07] MEDS: BENZONATATE 100 MG CAPSULE PO PRN (22:38)
[2018-09-07] MEDS: ATORVASTATIN 40 MG TABLET PO SCH (22:39)
[2018-09-07] MEDS: traZODone 50 MG TABLET PO SCH (22:41)
[2018-09-07] MEDS: ALPRAZolam 0.25 MG TABLET PO SCH (22:41)
[2018-09-07] MEDS: BUDESONIDE 0.25 MG/2 ML NEB RESP TX SCH (23:13)
[2018-09-08] MEDS: ALBUTEROL/IPRATROPIUM 3 ML NEB RESP TX SCH ×4 (00:25→19:51)
[2018-09-08] MEDS: methylPREDNISolone SOD SUC 40 MG/1 ML VIAL IV SCH ×2 (01:35→08:24)
[2018-09-08 05:22] LABS: Basophils % 0.2 % (0.0-0.8); Hematocrit 41.9 VOL% (35.7-47.0); Hemoglobin 12.9 GM/DL (12.0-16.0); Immature Granulocytes % 1.3 %; Immature Granulocytes Absolute 0.16 #; Lymphocytes # 0.2 10*3/uL (1.4-4.0); Lymphocytes % 1.8 % (21.3-54.2); Mean Corpuscular HGB Conc 30.8 GM/DL (32-36); Mean Corpuscular Hemoglobin 27 PG (27-34); Mean Corpuscular Volume 86.2 FL (87-102); Mean Platelet Volume 10.5 FL (9.6-12.0); Monocytes # 0.5 10*3/uL (0.11-0.8); Monocytes % 4.2 % (1.7-12.7); Neutrophils # 11.8 10*3/uL (1.4-7.4); Neutrophils % 92.5 % (38.7-73.9); Platelet Count 170 T/CUMM (130-400); Red Blood Count 4.86 MC/CUMM (3.8-5.5); Red Cell Distribution Width 19.9 % (9.3-17.3); White Blood Count 12.8 T/CUMM (4-12)
[2018-09-08 05:36] LABS: Calcium 10.7 MG/DL (8.5-10.1); Osmolality,Calculated 284.1 MOS/KG (273-304); Potassium 5.3 MMOL/L (3.5-5.1)
[2018-09-08 05:55] LABS: Hypochromasia Slight; Lymphocytes 2 % (20-55); Platelet Estimate Decreased; Polychromasia Few; Segmented Neutrophils 97 % (50-85); Total Cells Counted 100
[2018-09-08] MEDS: BUDESONIDE 0.25 MG/2 ML NEB RESP TX SCH ×2 (07:23→19:51)
[2018-09-08] MEDS: INSULIN LISPRO 100 UNIT/ML SUBCUT SCH ×4 (07:54→21:36)
[2018-09-08] MEDS: SEVELAMER CARBONATE 800 MG TABLET PO SCH ×3 (07:54→17:43)
[2018-09-08] MEDS: PANTOPRAZOLE 40 MG TABLET PO SCH (07:55)
[2018-09-08] MEDS: SIMETHICONE CHEW 80 MG TABLET PO SCH ×3 (07:55→17:44)
[2018-09-08] MEDS ORDERED: INSULIN GLARGINE 100 UNIT/ML SUBCUT SCH (08:00)
[2018-09-08] MEDS: PARoxetine 20 MG TABLET PO SCH (08:22)
[2018-09-08] MEDS: CALCITRIOL 0.5 MCG CAPSULE PO SCH ×2 (08:22→21:40)
[2018-09-08] MEDS: THEOPHYLLINE ER (24 HR) 300 MG CAPSULE PO SCH (08:22)
[2018-09-08] MEDS: METOPROLOL SUCCINATE XL 100 MG TABLET PO SCH (08:23)
[2018-09-08] MEDS: ISOSORBIDE DINITRATE 20 MG TABLET PO SCH ×3 (08:23→21:39)
[2018-09-08] MEDS: ALPRAZolam 0.25 MG TABLET PO SCH ×2 (08:23→21:40)
[2018-09-08] MEDS: DOXAZOSIN 4 MG TABLET PO SCH ×2 (08:23→21:40)
[2018-09-08] MEDS: CALCIUM (CARBONATE) 500 MG TABLET PO SCH ×3 (08:23→21:38)
[2018-09-08] MEDS: LACTULOSE 20 GM/30 ML UDCUP PO SCH ×2 (08:24→08:28)
[2018-09-08] MEDS: levETIRAcetam 250 MG TABLET PO SCH ×2 (08:24→21:36)
[2018-09-08] MEDS: MEROPENEM 500 MG in SODIUM CHLORIDE 0.9% 100 ML IV SCH (09:37)
[2018-09-08] MEDS: ATORVASTATIN 40 MG TABLET PO SCH (21:38)
[2018-09-08] MEDS: BENZONATATE 100 MG CAPSULE PO PRN (21:40)
[2018-09-08] MEDS: traZODone 50 MG TABLET PO SCH (21:41)
[2018-09-08] MEDS: BUDESONIDE/FORMOTEROL 160-4.5 INHALER 6 GM INH SCH (21:50)
[2018-09-09] MEDS: ALBUTEROL/IPRATROPIUM 3 ML NEB RESP TX SCH ×4 (00:49→20:42)
[2018-09-09 05:59] LABS: Osmolality,Calculated 295.2 MOS/KG (273-304); Potassium 5.2 MMOL/L (3.5-5.1)
[2018-09-09] MEDS: BENZONATATE 100 MG CAPSULE PO PRN ×2 (06:39→22:33)
[2018-09-09] MEDS: BUDESONIDE 0.25 MG/2 ML NEB RESP TX SCH ×2 (07:00→20:42)
[2018-09-09] MEDS: INSULIN LISPRO 100 UNIT/ML SUBCUT SCH ×4 (09:29→22:37)
[2018-09-09] MEDS: INSULIN GLARGINE 100 UNIT/ML SUBCUT SCH (09:30)
[2018-09-09] MEDS: PANTOPRAZOLE 40 MG TABLET PO SCH (09:35)
[2018-09-09] MEDS: LACTULOSE 20 GM/30 ML UDCUP PO SCH (09:35)
[2018-09-09] MEDS: CALCIUM (CARBONATE) 500 MG TABLET PO SCH ×3 (09:35→22:31)
[2018-09-09] MEDS: ALPRAZolam 0.25 MG TABLET PO SCH ×2 (09:35→22:32)
[2018-09-09] MEDS: SEVELAMER CARBONATE 800 MG TABLET PO SCH ×3 (09:36→17:34)
[2018-09-09] MEDS: ISOSORBIDE DINITRATE 20 MG TABLET PO SCH ×3 (09:36→22:32)
[2018-09-09] MEDS: levETIRAcetam 250 MG TABLET PO SCH ×2 (09:36→22:33)
[2018-09-09] MEDS: predniSONE 20 MG TABLET PO SCH (09:36)
[2018-09-09] MEDS: PARoxetine 20 MG TABLET PO SCH (09:37)
[2018-09-09] MEDS: SIMETHICONE CHEW 80 MG TABLET PO SCH ×3 (09:37→17:34)
[2018-09-09] MEDS: DOXAZOSIN 4 MG TABLET PO SCH ×2 (09:37→22:32)
[2018-09-09] MEDS: CINACALCET 30 MG TABLET PO SCH (09:38)
[2018-09-09] MEDS: METOPROLOL SUCCINATE XL 100 MG TABLET PO SCH (09:38)
[2018-09-09] MEDS: CALCITRIOL 0.5 MCG CAPSULE PO SCH ×2 (09:38→22:33)
[2018-09-09] MEDS: THEOPHYLLINE ER (24 HR) 300 MG CAPSULE PO SCH (09:38)
[2018-09-09] MEDS: BUDESONIDE/FORMOTEROL 160-4.5 INHALER 6 GM INH SCH ×2 (09:38→22:35)
[2018-09-09] MEDS: MEROPENEM 500 MG in SODIUM CHLORIDE 0.9% 100 ML IV SCH (14:39)
[2018-09-09] MEDS: traZODone 50 MG TABLET PO SCH (22:32)
[2018-09-09] MEDS: ATORVASTATIN 40 MG TABLET PO SCH (22:33)
[2018-09-10] MEDS: ALBUTEROL/IPRATROPIUM 3 ML NEB RESP TX SCH ×4 (00:44→19:07)
[2018-09-10 04:28] LABS: Calcium 12.9 MG/DL (8.5-10.1); Osmolality,Calculated 282.1 MOS/KG (273-304)
[2018-09-10] MEDS: BUDESONIDE 0.25 MG/2 ML NEB RESP TX SCH ×2 (07:20→19:07)
[2018-09-10] MEDS: INSULIN GLARGINE 100 UNIT/ML SUBCUT SCH (08:12)
[2018-09-10] MEDS: INSULIN LISPRO 100 UNIT/ML SUBCUT SCH ×4 (08:13→22:13)
[2018-09-10] MEDS: BUDESONIDE/FORMOTEROL 160-4.5 INHALER 6 GM INH SCH ×2 (08:14→22:13)
[2018-09-10] MEDS: METOPROLOL SUCCINATE XL 100 MG TABLET PO SCH (08:15)
[2018-09-10] MEDS: THEOPHYLLINE ER (24 HR) 300 MG CAPSULE PO SCH (08:15)
[2018-09-10] MEDS: SIMETHICONE CHEW 80 MG TABLET PO SCH ×3 (08:15→17:21)
[2018-09-10] MEDS: DOXAZOSIN 4 MG TABLET PO SCH ×2 (08:15→22:11)
[2018-09-10] MEDS: predniSONE 20 MG TABLET PO SCH (08:16)
[2018-09-10] MEDS: PARoxetine 20 MG TABLET PO SCH (08:16)
[2018-09-10] MEDS: ALPRAZolam 0.25 MG TABLET PO SCH (08:16)
[2018-09-10] MEDS: levETIRAcetam 250 MG TABLET PO SCH ×2 (08:16→22:10)
[2018-09-10] MEDS: SEVELAMER CARBONATE 800 MG TABLET PO SCH ×3 (08:17→17:21)
[2018-09-10] MEDS: ISOSORBIDE DINITRATE 20 MG TABLET PO SCH ×3 (08:17→22:11)
[2018-09-10] MEDS: MEROPENEM 500 MG in SODIUM CHLORIDE 0.9% 100 ML IV SCH (08:17)
[2018-09-10] MEDS: PANTOPRAZOLE 40 MG TABLET PO SCH (08:17)
[2018-09-10] MEDS ORDERED: ALPRAZolam 0.25 MG TABLET PO PRN (09:05)
[2018-09-10] MEDS: LACTULOSE 20 GM/30 ML UDCUP PO SCH (09:20)
[2018-09-10] MEDS: ATORVASTATIN 40 MG TABLET PO SCH (22:11)
[2018-09-10] MEDS: BENZONATATE 100 MG CAPSULE PO PRN (22:12)
[2018-09-10] MEDS: traZODone 50 MG TABLET PO SCH (22:18)
[2018-09-11] MEDS: ALBUTEROL/IPRATROPIUM 3 ML NEB RESP TX SCH ×4 (00:05→19:20)
[2018-09-11 06:30] LABS: Calcium 11.9 MG/DL (8.5-10.1); Osmolality,Calculated 296.8 MOS/KG (273-304); Potassium 5.7 MMOL/L (3.5-5.1)
[2018-09-11] MEDS: BUDESONIDE 0.25 MG/2 ML NEB RESP TX SCH ×2 (06:59→19:20)
[2018-09-11] MEDS: INSULIN LISPRO 100 UNIT/ML SUBCUT SCH ×4 (09:31→22:15)
[2018-09-11] MEDS: ISOSORBIDE DINITRATE 20 MG TABLET PO SCH ×3 (09:32→22:15)
[2018-09-11] MEDS: levETIRAcetam 250 MG TABLET PO SCH ×2 (09:32→22:14)
[2018-09-11] MEDS: SIMETHICONE CHEW 80 MG TABLET PO SCH ×3 (09:32→17:21)
[2018-09-11] MEDS: INSULIN GLARGINE 100 UNIT/ML SUBCUT SCH (09:32)
[2018-09-11] MEDS: THEOPHYLLINE ER (24 HR) 300 MG CAPSULE PO SCH (09:32)
[2018-09-11] MEDS: PARoxetine 20 MG TABLET PO SCH (09:33)
[2018-09-11] MEDS: PANTOPRAZOLE 40 MG TABLET PO SCH (09:33)
[2018-09-11] MEDS: SEVELAMER CARBONATE 800 MG TABLET PO SCH ×3 (09:33→17:21)
[2018-09-11] MEDS: METOPROLOL SUCCINATE XL 100 MG TABLET PO SCH (09:34)
[2018-09-11] MEDS: MEROPENEM 500 MG in SODIUM CHLORIDE 0.9% 100 ML IV SCH (09:34)
[2018-09-11] MEDS: LACTULOSE 20 GM/30 ML UDCUP PO SCH (09:34)
[2018-09-11] MEDS: BUDESONIDE/FORMOTEROL 160-4.5 INHALER 6 GM INH SCH ×2 (09:43→22:15)
[2018-09-11] MEDS: DOXAZOSIN 4 MG TABLET PO SCH ×2 (09:44→22:15)
[2018-09-11] MEDS: predniSONE 20 MG TABLET PO SCH (09:44)
[2018-09-11] MEDS: BISACODYL 10 MG SUPP RECTAL PRN (17:21)
[2018-09-11] MEDS: ATORVASTATIN 40 MG TABLET PO SCH (22:14)
[2018-09-11] MEDS: BENZONATATE 100 MG CAPSULE PO PRN (22:15)
[2018-09-11] MEDS: traZODone 50 MG TABLET PO SCH (22:24)
[2018-09-12] MEDS: ALBUTEROL/IPRATROPIUM 3 ML NEB RESP TX SCH ×4 (00:24→19:46)
[2018-09-12 05:44] LABS: Osmolality,Calculated 298.1 MOS/KG (273-304)
[2018-09-12 05:51] LABS: Potassium 6.3 MMOL/L (3.5-5.1)
[2018-09-12] MEDS: BUDESONIDE 0.25 MG/2 ML NEB RESP TX SCH ×2 (06:50→19:46)
[2018-09-12] MEDS: INSULIN GLARGINE 100 UNIT/ML SUBCUT SCH (10:20)
[2018-09-12] MEDS: INSULIN LISPRO 100 UNIT/ML SUBCUT SCH ×4 (10:25→21:59)
[2018-09-12] MEDS: PANTOPRAZOLE 40 MG TABLET PO SCH (10:26)
[2018-09-12] MEDS: SIMETHICONE CHEW 80 MG TABLET PO SCH ×3 (10:27→16:27)
[2018-09-12] MEDS: SEVELAMER CARBONATE 800 MG TABLET PO SCH ×3 (10:27→16:27)
[2018-09-12] MEDS: levETIRAcetam 250 MG TABLET PO SCH ×2 (10:28→21:59)
[2018-09-12] MEDS: predniSONE 20 MG TABLET PO SCH (10:29)
[2018-09-12] MEDS: PARoxetine 20 MG TABLET PO SCH (10:30)
[2018-09-12] MEDS: THEOPHYLLINE ER (24 HR) 300 MG CAPSULE PO SCH (10:31)
[2018-09-12] MEDS: BUDESONIDE/FORMOTEROL 160-4.5 INHALER 6 GM INH SCH ×2 (10:31→21:59)
[2018-09-12] MEDS: DOXAZOSIN 4 MG TABLET PO SCH ×2 (13:42→21:59)
[2018-09-12] MEDS: LACTULOSE 20 GM/30 ML UDCUP PO SCH (13:42)
[2018-09-12] MEDS: ISOSORBIDE DINITRATE 20 MG TABLET PO SCH ×3 (13:43→21:58)
[2018-09-12] MEDS: CINACALCET 30 MG TABLET PO SCH (13:44)
[2018-09-12] MEDS: METOPROLOL SUCCINATE XL 100 MG TABLET PO SCH (13:44)
[2018-09-12] MEDS: MEROPENEM 500 MG in SODIUM CHLORIDE 0.9% 100 ML IV SCH (13:45)
[2018-09-12] MEDS: traZODone 50 MG TABLET PO SCH (21:58)
[2018-09-12] MEDS: ATORVASTATIN 40 MG TABLET PO SCH (21:58)
[2018-09-13] MEDS: ALBUTEROL/IPRATROPIUM 3 ML NEB RESP TX SCH ×4 (00:25→20:28)
[2018-09-13] MEDS: BUDESONIDE 0.25 MG/2 ML NEB RESP TX SCH ×2 (06:52→20:28)
[2018-09-13] MEDS: levETIRAcetam 250 MG TABLET PO SCH ×2 (08:21→21:17)
[2018-09-13] MEDS: INSULIN LISPRO 100 UNIT/ML SUBCUT SCH ×4 (08:21→21:18)
[2018-09-13] MEDS: INSULIN GLARGINE 100 UNIT/ML SUBCUT SCH (08:21)
[2018-09-13] MEDS: PARoxetine 20 MG TABLET PO SCH (08:22)
[2018-09-13] MEDS: SEVELAMER CARBONATE 800 MG TABLET PO SCH ×3 (08:22→17:38)
[2018-09-13] MEDS: predniSONE 20 MG TABLET PO SCH (08:22)
[2018-09-13] MEDS: ISOSORBIDE DINITRATE 20 MG TABLET PO SCH ×3 (08:22→21:17)
[2018-09-13] MEDS: DOXAZOSIN 4 MG TABLET PO SCH ×2 (08:22→21:17)
[2018-09-13] MEDS: SIMETHICONE CHEW 80 MG TABLET PO SCH ×3 (08:22→17:38)
[2018-09-13] MEDS: METOPROLOL SUCCINATE XL 100 MG TABLET PO SCH (08:22)
[2018-09-13] MEDS: PANTOPRAZOLE 40 MG TABLET PO SCH (08:22)
[2018-09-13] MEDS: LACTULOSE 20 GM/30 ML UDCUP PO SCH ×2 (08:23→21:17)
[2018-09-13] MEDS: THEOPHYLLINE ER (24 HR) 300 MG CAPSULE PO SCH (08:24)
[2018-09-13] MEDS: BUDESONIDE/FORMOTEROL 160-4.5 INHALER 6 GM INH SCH ×2 (08:24→21:17)
[2018-09-13] MEDS: ACETAMINOPHEN 325 MG TABLET PO PRN (12:02)
[2018-09-13] MEDS: MEROPENEM 500 MG in SODIUM CHLORIDE 0.9% 100 ML IV SCH (17:38)
[2018-09-13] MEDS: BISACODYL 10 MG SUPP RECTAL PRN (19:00)
[2018-09-13] MEDS: traZODone 50 MG TABLET PO SCH (21:16)
[2018-09-13] MEDS: ATORVASTATIN 40 MG TABLET PO SCH (21:17)
[2018-09-13] MEDS ORDERED: SODIUM PHOSPHATE ENEMA 133 ML BOTTLE RECTAL PRN (22:49)
[2018-09-13] MEDS ORDERED: SODIUM PHOSPHATE ENEMA 133 ML BOTTLE RECTAL ONE (22:49)
[2018-09-13] MEDS ORDERED: INSULIN GLARGINE 100 UNIT/ML SUBCUT SCH (23:03)
[2018-09-14] MEDS: ALBUTEROL/IPRATROPIUM 3 ML NEB RESP TX SCH ×4 (00:35→19:03)
[2018-09-14 05:20] LABS: Hematocrit 40.6 VOL% (35.7-47.0); Hemoglobin 12.6 GM/DL (12.0-16.0); Immature Granulocytes % 0.6 %; Immature Granulocytes Absolute 0.08 #; Lymphocytes # 0.4 10*3/uL (1.4-4.0); Lymphocytes % 3.1 % (21.3-54.2); Mean Corpuscular Hemoglobin 27 PG (27-34); Mean Corpuscular Volume 87.7 FL (87-102); Mean Platelet Volume 10.3 FL (9.6-12.0); Monocytes # 1.2 10*3/uL (0.11-0.8); Monocytes % 9.6 % (1.7-12.7); Neutrophils # 11.1 10*3/uL (1.4-7.4); Neutrophils % 86.7 % (38.7-73.9); Platelet Count 182 T/CUMM (130-400); Red Blood Count 4.63 MC/CUMM (3.8-5.5); Red Cell Distribution Width 20.8 % (9.3-17.3); White Blood Count 12.8 T/CUMM (4-12)
[2018-09-14 05:38] LABS: Calcium 9.4 MG/DL (8.5-10.1); Osmolality,Calculated 285.9 MOS/KG (273-304); Potassium 5.3 MMOL/L (3.5-5.1)
[2018-09-14 05:55] LABS: Lymphocytes 3 % (20-55); Metamyelocytes 1 %; Platelet Estimate Adequate; Polychromasia Few; Segmented Neutrophils 95 % (50-85); Target Cells Few; Total Cells Counted 100
[2018-09-14] MEDS: BUDESONIDE 0.25 MG/2 ML NEB RESP TX SCH ×2 (07:40→19:04)
[2018-09-14] MEDS: predniSONE 20 MG TABLET PO SCH (09:59)
[2018-09-14] MEDS: METOPROLOL SUCCINATE XL 100 MG TABLET PO SCH (10:00)
[2018-09-14] MEDS: PARoxetine 20 MG TABLET PO SCH (10:00)
[2018-09-14] MEDS: CINACALCET 30 MG TABLET PO SCH (10:00)
[2018-09-14] MEDS: ISOSORBIDE DINITRATE 20 MG TABLET PO SCH ×3 (10:00→21:52)
[2018-09-14] MEDS: DOXAZOSIN 4 MG TABLET PO SCH ×2 (10:00→21:52)
[2018-09-14] MEDS: LACTULOSE 20 GM/30 ML UDCUP PO SCH ×2 (10:01→21:56)
[2018-09-14] MEDS: SEVELAMER CARBONATE 800 MG TABLET PO SCH ×3 (10:01→18:01)
[2018-09-14] MEDS: SIMETHICONE CHEW 80 MG TABLET PO SCH ×3 (10:01→18:01)
[2018-09-14] MEDS: PANTOPRAZOLE 40 MG TABLET PO SCH (10:01)
[2018-09-14] MEDS: INSULIN LISPRO 100 UNIT/ML SUBCUT SCH ×4 (10:02→21:55)
[2018-09-14] MEDS: levETIRAcetam 250 MG TABLET PO SCH ×2 (10:02→21:55)
[2018-09-14] MEDS: THEOPHYLLINE ER (24 HR) 300 MG CAPSULE PO SCH (10:02)
[2018-09-14] MEDS: BUDESONIDE/FORMOTEROL 160-4.5 INHALER 6 GM INH SCH ×2 (10:03→21:54)
[2018-09-14] MEDS: MEROPENEM 500 MG in SODIUM CHLORIDE 0.9% 100 ML IV SCH (18:01)
[2018-09-14] MEDS: ATORVASTATIN 40 MG TABLET PO SCH (21:52)
[2018-09-14] MEDS: traZODone 50 MG TABLET PO SCH (21:52)
[2018-09-15] MEDS: ALBUTEROL/IPRATROPIUM 3 ML NEB RESP TX SCH ×4 (00:17→19:08)
[2018-09-15 05:11] LABS: Basophils % 0.1 % (0.0-0.8); Eosinophils % 0.1 % (0.00-10.9); Hematocrit 39.3 VOL% (35.7-47.0); Hemoglobin 12.5 GM/DL (12.0-16.0); Immature Granulocytes % 0.8 %; Immature Granulocytes Absolute 0.09 #; Lymphocytes # 0.5 10*3/uL (1.4-4.0); Lymphocytes % 4.8 % (21.3-54.2); Mean Corpuscular HGB Conc 31.8 GM/DL (32-36); Mean Corpuscular Hemoglobin 28 PG (27-34); Mean Corpuscular Volume 86.8 FL (87-102); Mean Platelet Volume 10.3 FL (9.6-12.0); Monocytes # 1.5 10*3/uL (0.11-0.8); Monocytes % 13.9 % (1.7-12.7); Neutrophils # 8.9 10*3/uL (1.4-7.4); Neutrophils % 80.3 % (38.7-73.9); Platelet Count 161 T/CUMM (130-400); Red Blood Count 4.53 MC/CUMM (3.8-5.5); Red Cell Distribution Width 20.3 % (9.3-17.3)
[2018-09-15 05:24] LABS: Calcium 8.4 MG/DL (8.5-10.1); Osmolality,Calculated 271.8 MOS/KG (273-304); Potassium 3.9 MMOL/L (3.5-5.1)
[2018-09-15 06:01] LABS: Eosinophils 1 % (0-10); Hypochromasia 1+; Lymphocytes 8 % (20-55); Microcytosis 1+; Segmented Neutrophils 87 % (50-85); Target Cells Slight; Total Cells Counted 100
[2018-09-15 06:02] LABS: Platelet Estimate Adequate
[2018-09-15] MEDS: BUDESONIDE 0.25 MG/2 ML NEB RESP TX SCH ×2 (07:25→19:08)
[2018-09-15] MEDS: LACTULOSE 20 GM/30 ML UDCUP PO SCH ×2 (09:42→21:01)
[2018-09-15] MEDS: ISOSORBIDE DINITRATE 20 MG TABLET PO SCH ×3 (09:42→21:01)
[2018-09-15] MEDS: INSULIN GLARGINE 100 UNIT/ML SUBCUT SCH (09:42)
[2018-09-15] MEDS: PANTOPRAZOLE 40 MG TABLET PO SCH (09:42)
[2018-09-15] MEDS: DOXAZOSIN 4 MG TABLET PO SCH ×2 (09:42→21:01)
[2018-09-15] MEDS: predniSONE 20 MG TABLET PO SCH (09:43)
[2018-09-15] MEDS: INSULIN LISPRO 100 UNIT/ML SUBCUT SCH ×4 (09:43→21:01)
[2018-09-15] MEDS: PARoxetine 20 MG TABLET PO SCH (09:43)
[2018-09-15] MEDS: SIMETHICONE CHEW 80 MG TABLET PO SCH ×3 (09:43→17:26)
[2018-09-15] MEDS: METOPROLOL SUCCINATE XL 100 MG TABLET PO SCH (09:43)
[2018-09-15] MEDS: SEVELAMER CARBONATE 800 MG TABLET PO SCH ×3 (09:43→17:26)
[2018-09-15] MEDS: BUDESONIDE/FORMOTEROL 160-4.5 INHALER 6 GM INH SCH ×2 (09:44→21:02)
[2018-09-15] MEDS: THEOPHYLLINE ER (24 HR) 300 MG CAPSULE PO SCH (09:50)
[2018-09-15] MEDS: levETIRAcetam 250 MG TABLET PO SCH ×2 (09:50→21:01)
[2018-09-15] MEDS ORDERED: MEROPENEM 500 MG in SODIUM CHLORIDE 0.9% 100 ML IV ONE (12:00)
[2018-09-15] MEDS: traZODone 50 MG TABLET PO SCH (21:00)
[2018-09-15] MEDS: ATORVASTATIN 40 MG TABLET PO SCH (21:01)
[2018-09-16] MEDS: ALBUTEROL/IPRATROPIUM 3 ML NEB RESP TX SCH ×3 (00:19→13:28)
[2018-09-16] MEDS: BUDESONIDE 0.25 MG/2 ML NEB RESP TX SCH (07:00)
[2018-09-16 08:34] VITALS: BP 179/88
[2018-09-16] MEDS: INSULIN GLARGINE 100 UNIT/ML SUBCUT SCH (08:53)
[2018-09-16] MEDS: INSULIN LISPRO 100 UNIT/ML SUBCUT SCH ×2 (08:54→11:50)
[2018-09-16] MEDS: BUDESONIDE/FORMOTEROL 160-4.5 INHALER 6 GM INH SCH (08:56)
[2018-09-16] MEDS: THEOPHYLLINE ER (24 HR) 300 MG CAPSULE PO SCH (08:57)
[2018-09-16] MEDS: PARoxetine 20 MG TABLET PO SCH (08:57)
[2018-09-16] MEDS: SIMETHICONE CHEW 80 MG TABLET PO SCH (08:57)
[2018-09-16] MEDS: CINACALCET 30 MG TABLET PO SCH (08:59)
[2018-09-16] MEDS: DOXAZOSIN 4 MG TABLET PO SCH (09:00)
[2018-09-16] MEDS: predniSONE 20 MG TABLET PO SCH (09:00)
[2018-09-16] MEDS: METOPROLOL SUCCINATE XL 100 MG TABLET PO SCH (09:01)
[2018-09-16] MEDS: SEVELAMER CARBONATE 800 MG TABLET PO SCH (09:01)
[2018-09-16] MEDS: levETIRAcetam 250 MG TABLET PO SCH (09:01)
[2018-09-16] MEDS: LACTULOSE 20 GM/30 ML UDCUP PO SCH (09:02)
[2018-09-16] MEDS: PANTOPRAZOLE 40 MG TABLET PO SCH (11:50)
[2018-09-16] MEDS: ISOSORBIDE DINITRATE 20 MG TABLET PO SCH (11:50)
== END 2018-09-16 14:34 | DRG 190 ==
LOC: N.ED 08:17 → N.EDINP 12:14 → N.2E 13:09
PROVIDERS: ADMIT Internal Medicine; ATTEND Internal Medicine

== ENCOUNTER 2018-10-14 16:13 | Inpatient (IN) ==
[2018-10-14] MEDS ORDERED: METOCLOPRAMIDE 10 MG/2 ML VIAL IV STA (16:39)
[2018-10-14] MEDS ORDERED: ONDANSETRON 4 MG/2 ML VIAL IV STA (16:39)
[2018-10-14 17:47] LABS: Basophils % 0.1 % (0.0-0.8); Eosinophils # 0.1 10*3/uL (0.0-0.87); Eosinophils % 0.8 % (0.00-10.9); Hematocrit 34.5 VOL% (35.7-47.0); Hemoglobin 10.6 GM/DL (12.0-16.0); Immature Granulocytes % 0.4 %; Immature Granulocytes Absolute 0.04 #; Lymphocytes # 0.2 10*3/uL (1.4-4.0); Mean Corpuscular HGB Conc 30.7 GM/DL (32-36); Mean Corpuscular Hemoglobin 28 PG (27-34); Mean Corpuscular Volume 90.6 FL (87-102); Mean Platelet Volume 10.7 FL (9.6-12.0); Monocytes # 0.4 10*3/uL (0.11-0.8); Monocytes % 4.5 % (1.7-12.7); Neutrophils % 92.2 % (38.7-73.9); Platelet Count 145 T/CUMM (130-400); Red Blood Count 3.81 MC/CUMM (3.8-5.5); Red Cell Distribution Width 17.6 % (9.3-17.3); White Blood Count 9.8 T/CUMM (4-12)
[2018-10-14 17:55] LABS: PT Patient Result 10.9 SECS
[2018-10-14 18:03] LABS: Alanine Aminotransferase 15 U/L (13-56); Albumin 3.7 G/DL (3.4-5.0); Alkaline Phosphatase 99 U/L (45-117); Aspartate Amino Transferase 14 U/L (0-37); Blood Urea Nitrogen 67 MG/DL (7-18); Calcium 9.2 MG/DL (8.5-10.1); Glucose 95 MG/DL (74-106); Osmolality,Calculated 286.2 MOS/KG (273-304); Potassium 4.7 MMOL/L (3.5-5.1); Sodium 134 MMOL/L (136-145); Total Protein 8.4 G/DL (6.4-8.3)
[2018-10-14 18:04] LABS: Troponin I 0.183 NG/ML (0.00-0.045)
[2018-10-14] MEDS ORDERED: LEVOFLOXACIN INJ 750 MG in PREMIX 1 EACH IV STA (18:20)
[2018-10-14] MEDS ORDERED: ALBUTEROL/IPRATROPIUM 3 ML NEB RESP TX STA (18:20)
[2018-10-14 18:39] LABS: Band Neutrophils 3 % (0-10); Lymphocytes 3 % (20-55); Segmented Neutrophils 94 % (50-85); Total Cells Counted 100
[2018-10-14] MEDS ORDERED: GLUCAGON 1 MG VIAL IM PRN (18:39)
[2018-10-14 18:40] LABS: Anisocytosis 1+; Hypochromasia Slight; Platelet Estimate Adequate
[2018-10-14] MEDS ORDERED: DEXTROSE 50% 25 GM/50 ML SYRINGE IV ONE (18:59)
[2018-10-14] MEDS: DEXTROSE 50% 25 GM/50 ML VIAL IV PRN (19:00)
[2018-10-14] MEDS: DEXTROSE 5% NACL 0.45% 1,000 ML IV SCH (19:03)
[2018-10-14] MEDS: INSULIN REGULAR 100 UNIT/ML SUBCUT SCH (22:18)
[2018-10-14] MEDS: ATORVASTATIN 40 MG TABLET PO SCH (22:18)
[2018-10-15] MEDS: ALBUTEROL/IPRATROPIUM 3 ML NEB RESP TX SCH ×4 (00:37→19:20)
[2018-10-15] MEDS ORDERED: ACETAMINOPHEN 325 MG TABLET PO PRN (06:35)
[2018-10-15 06:43] LABS: Blood Urea Nitrogen 72 MG/DL (7-18); Calcium 8.4 MG/DL (8.5-10.1); Glucose 227 MG/DL (74-106); Osmolality,Calculated 291.5 MOS/KG (273-304); Potassium 5.2 MMOL/L (3.5-5.1); Sodium 132 MMOL/L (136-145)
[2018-10-15 06:44] LABS: Troponin I 0.134 NG/ML (0.00-0.045)
[2018-10-15] MEDS: INSULIN REGULAR 100 UNIT/ML SUBCUT SCH ×4 (07:35→22:09)
[2018-10-15] MEDS ORDERED: PRO RENAL PO SCH (09:00)
[2018-10-15] MEDS ORDERED: PANTOPRAZOLE 40 MG TABLET PO SCH (09:00)
[2018-10-15] MEDS: levETIRAcetam 250 MG TABLET PO SCH ×2 (09:47→22:08)
[2018-10-15] MEDS: SIMETHICONE CHEW 80 MG TABLET PO SCH ×3 (09:47→18:31)
[2018-10-15] MEDS: ISOSORBIDE DINITRATE 20 MG TABLET PO SCH ×3 (09:48→18:31)
[2018-10-15] MEDS: SEVELAMER CARBONATE 800 MG TABLET PO SCH ×3 (09:48→18:31)
[2018-10-15] MEDS: METOPROLOL TARTRATE 100 MG TABLET PO SCH (09:48)
[2018-10-15] MEDS: THEOPHYLLINE ER (24 HR) 300 MG CAPSULE PO SCH (09:48)
[2018-10-15] MEDS: PARoxetine 10 MG TABLET PO SCH (09:48)
[2018-10-15] MEDS: BUDESONIDE/FORMOTEROL 160-4.5 INHALER 6 GM INH SCH ×2 (09:50→22:09)
[2018-10-15] MEDS: DEXTROSE 5% NACL 0.45% 1,000 ML IV SCH (18:32)
[2018-10-15] MEDS: DOXAZOSIN 1 MG TABLET PO SCH (22:07)
[2018-10-15] MEDS: INSULIN GLARGINE 100 UNIT/ML SUBCUT SCH (22:08)
[2018-10-15] MEDS: traZODone 50 MG TABLET PO SCH (22:08)
[2018-10-15] MEDS: ATORVASTATIN 40 MG TABLET PO SCH (22:08)
[2018-10-16] MEDS: ALBUTEROL/IPRATROPIUM 3 ML NEB RESP TX SCH ×4 (01:13→19:22)
[2018-10-16] MEDS: INSULIN REGULAR 100 UNIT/ML SUBCUT SCH ×4 (09:01→21:58)
[2018-10-16] MEDS: SEVELAMER CARBONATE 800 MG TABLET PO SCH ×3 (09:01→16:32)
[2018-10-16] MEDS: ISOSORBIDE DINITRATE 20 MG TABLET PO SCH ×3 (09:02→16:31)
[2018-10-16] MEDS: levETIRAcetam 250 MG TABLET PO SCH ×2 (09:02→21:54)
[2018-10-16] MEDS: THEOPHYLLINE ER (24 HR) 300 MG CAPSULE PO SCH (09:02)
[2018-10-16] MEDS: PARoxetine 10 MG TABLET PO SCH (09:02)
[2018-10-16] MEDS: METOPROLOL TARTRATE 100 MG TABLET PO SCH (09:02)
[2018-10-16] MEDS: SIMETHICONE CHEW 80 MG TABLET PO SCH ×3 (09:02→16:31)
[2018-10-16] MEDS: PANTOPRAZOLE 40 MG TABLET PO SCH (09:02)
[2018-10-16] MEDS: BUDESONIDE/FORMOTEROL 160-4.5 INHALER 6 GM INH SCH ×2 (09:03→21:58)
[2018-10-16] MEDS: DEXTROSE 5% NACL 0.45% 1,000 ML IV SCH (11:38)
[2018-10-16] MEDS: traZODone 50 MG TABLET PO SCH (21:54)
[2018-10-16] MEDS: DOXAZOSIN 1 MG TABLET PO SCH (21:54)
[2018-10-16] MEDS: ATORVASTATIN 40 MG TABLET PO SCH (21:55)
[2018-10-16] MEDS: INSULIN GLARGINE 100 UNIT/ML SUBCUT SCH (21:58)
[2018-10-16] MEDS: LEVOFLOXACIN INJ 500 MG in PREMIX 1 EACH IV SCH (22:00)
[2018-10-17] MEDS: ALBUTEROL/IPRATROPIUM 3 ML NEB RESP TX SCH ×4 (00:25→20:10)
[2018-10-17] MEDS: ISOSORBIDE DINITRATE 20 MG TABLET PO SCH ×3 (08:57→17:09)
[2018-10-17] MEDS: METOPROLOL TARTRATE 100 MG TABLET PO SCH (08:57)
[2018-10-17] MEDS: CINACALCET 30 MG TABLET PO SCH (08:57)
[2018-10-17] MEDS: SIMETHICONE CHEW 80 MG TABLET PO SCH ×3 (08:57→17:10)
[2018-10-17] MEDS: PARoxetine 10 MG TABLET PO SCH (08:57)
[2018-10-17] MEDS: INSULIN REGULAR 100 UNIT/ML SUBCUT SCH ×4 (08:58→20:50)
[2018-10-17] MEDS: PANTOPRAZOLE 40 MG TABLET PO SCH (08:58)
[2018-10-17] MEDS: SEVELAMER CARBONATE 800 MG TABLET PO SCH ×3 (08:58→17:10)
[2018-10-17] MEDS: levETIRAcetam 250 MG TABLET PO SCH ×2 (08:58→20:49)
[2018-10-17] MEDS: THEOPHYLLINE ER (24 HR) 300 MG CAPSULE PO SCH (08:58)
[2018-10-17] MEDS: BUDESONIDE/FORMOTEROL 160-4.5 INHALER 6 GM INH SCH ×2 (08:59→20:50)
[2018-10-17] MEDS: DEXTROSE 5% NACL 0.45% 1,000 ML IV SCH (15:36)
[2018-10-17] MEDS ORDERED: SODIUM PHOSPHATE ENEMA 133 ML BOTTLE RECTAL ONE (19:12)
[2018-10-17] MEDS: ATORVASTATIN 40 MG TABLET PO SCH (20:49)
[2018-10-17] MEDS: traZODone 50 MG TABLET PO SCH (20:49)
[2018-10-17] MEDS: DOXAZOSIN 1 MG TABLET PO SCH (20:49)
[2018-10-17] MEDS: INSULIN GLARGINE 100 UNIT/ML SUBCUT SCH (20:50)
[2018-10-17] MEDS ORDERED: SODIUM PHOSPHATE ENEMA 133 ML BOTTLE RECTAL PRN (21:57)
[2018-10-18] MEDS: ALBUTEROL/IPRATROPIUM 3 ML NEB RESP TX SCH ×4 (00:17→19:13)
[2018-10-18 06:12] LABS: Basophils % 0.3 % (0.0-0.8); Eosinophils # 0.2 10*3/uL (0.0-0.87); Eosinophils % 6.9 % (0.00-10.9); Hematocrit 26.5 VOL% (35.7-47.0); Hemoglobin 7.8 GM/DL (12.0-16.0); Immature Granulocytes % 0.6 %; Immature Granulocytes Absolute 0.02 #; Lymphocytes # 0.4 10*3/uL (1.4-4.0); Lymphocytes % 11.2 % (21.3-54.2); Mean Corpuscular HGB Conc 29.4 GM/DL (32-36); Mean Corpuscular Hemoglobin 27 PG (27-34); Mean Corpuscular Volume 91.4 FL (87-102); Mean Platelet Volume 11.6 FL (9.6-12.0); Monocytes # 0.6 10*3/uL (0.11-0.8); Monocytes % 18.2 % (1.7-12.7); Neutrophils # 2.2 10*3/uL (1.4-7.4); Neutrophils % 62.8 % (38.7-73.9); Platelet Count 113 T/CUMM (130-400); Red Cell Distribution Width 17.4 % (9.3-17.3); White Blood Count 3.5 T/CUMM (4-12)
[2018-10-18 06:36] LABS: Calcium 9.1 MG/DL (8.5-10.1); Osmolality,Calculated 275.1 MOS/KG (273-304)
[2018-10-18 06:38] LABS: Band Neutrophils 1 % (0-10); Eosinophils 5 % (0-10); Hypochromasia 1+; Lymphocytes 9 % (20-55); Platelet Estimate Decreased; Segmented Neutrophils 68 % (50-85); Total Cells Counted 100
[2018-10-18] MEDS: INSULIN REGULAR 100 UNIT/ML SUBCUT SCH ×4 (08:17→22:13)
[2018-10-18] MEDS: PANTOPRAZOLE 40 MG TABLET PO SCH (08:37)
[2018-10-18] MEDS: levETIRAcetam 250 MG TABLET PO SCH ×2 (08:38→22:12)
[2018-10-18] MEDS: THEOPHYLLINE ER (24 HR) 300 MG CAPSULE PO SCH (08:38)
[2018-10-18] MEDS: METOPROLOL TARTRATE 100 MG TABLET PO SCH (08:38)
[2018-10-18] MEDS: SIMETHICONE CHEW 80 MG TABLET PO SCH ×3 (08:38→16:40)
[2018-10-18] MEDS: SEVELAMER CARBONATE 800 MG TABLET PO SCH ×3 (08:38→16:40)
[2018-10-18] MEDS: ISOSORBIDE DINITRATE 20 MG TABLET PO SCH ×3 (08:39→16:40)
[2018-10-18] MEDS: BUDESONIDE/FORMOTEROL 160-4.5 INHALER 6 GM INH SCH ×2 (08:39→22:16)
[2018-10-18] MEDS: PARoxetine 10 MG TABLET PO SCH (08:39)
[2018-10-18] MEDS: BISACODYL 5 MG TABLET PO SCH ×2 (12:31→17:40)
[2018-10-18] MEDS ORDERED: POLYETHYLENE GLYCOL 3350/ELECTROLYTES 4,000 ML BOTTLE PO ONE (18:00)
[2018-10-18] MEDS ORDERED: MAGNESIUM CITRATE 300 ML BOTTLE PO ONE (21:00)
[2018-10-18] MEDS: DOXAZOSIN 1 MG TABLET PO SCH (22:11)
[2018-10-18] MEDS: traZODone 50 MG TABLET PO SCH (22:12)
[2018-10-18] MEDS: INSULIN GLARGINE 100 UNIT/ML SUBCUT SCH (22:12)
[2018-10-18] MEDS: ATORVASTATIN 40 MG TABLET PO SCH (22:12)
[2018-10-18] MEDS: LEVOFLOXACIN INJ 500 MG in PREMIX 1 EACH IV SCH (22:13)
[2018-10-19] MEDS: ALBUTEROL/IPRATROPIUM 3 ML NEB RESP TX SCH ×4 (00:36→20:20)
[2018-10-19] MEDS: DEXTROSE 50% 25 GM/50 ML VIAL IV PRN ×2 (01:24→05:09)
[2018-10-19] MEDS: BISACODYL 5 MG TABLET PO SCH ×4 (01:33→23:45)
[2018-10-19 07:57] LABS: Calcium 9.2 MG/DL (8.5-10.1); Osmolality,Calculated 283.2 MOS/KG (273-304); Potassium 4.2 MMOL/L (3.5-5.1)
[2018-10-19] MEDS: THEOPHYLLINE ER (24 HR) 300 MG CAPSULE PO SCH (09:12)
[2018-10-19] MEDS: PARoxetine 10 MG TABLET PO SCH (09:12)
[2018-10-19] MEDS: levETIRAcetam 250 MG TABLET PO SCH ×2 (09:13→22:30)
[2018-10-19] MEDS: CINACALCET 30 MG TABLET PO SCH (09:13)
[2018-10-19] MEDS: SEVELAMER CARBONATE 800 MG TABLET PO SCH ×3 (09:13→17:24)
[2018-10-19] MEDS: PANTOPRAZOLE 40 MG TABLET PO SCH (09:14)
[2018-10-19] MEDS: SIMETHICONE CHEW 80 MG TABLET PO SCH ×3 (09:14→17:24)
[2018-10-19] MEDS: BUDESONIDE/FORMOTEROL 160-4.5 INHALER 6 GM INH SCH ×2 (09:14→22:31)
[2018-10-19] MEDS: INSULIN REGULAR 100 UNIT/ML SUBCUT SCH ×3 (09:18→17:26)
[2018-10-19] MEDS: METOPROLOL TARTRATE 100 MG TABLET PO SCH (14:55)
[2018-10-19] MEDS: ISOSORBIDE DINITRATE 20 MG TABLET PO SCH ×3 (14:55→17:27)
[2018-10-19] MEDS ORDERED: MAGNESIUM CITRATE 300 ML BOTTLE PO ONE (21:00)
[2018-10-19] MEDS: ATORVASTATIN 40 MG TABLET PO SCH (22:30)
[2018-10-19] MEDS: DOXAZOSIN 1 MG TABLET PO SCH (22:30)
[2018-10-19] MEDS: traZODone 50 MG TABLET PO SCH (22:30)
[2018-10-20] MEDS: INSULIN REGULAR 100 UNIT/ML SUBCUT SCH ×5 (00:59→21:30)
[2018-10-20] MEDS: ALBUTEROL/IPRATROPIUM 3 ML NEB RESP TX SCH ×4 (01:00→19:46)
[2018-10-20 07:11] LABS: Basophils % 0.4 % (0.0-0.8); Eosinophils # 0.4 10*3/uL (0.0-0.87); Eosinophils % 7.3 % (0.00-10.9); Hematocrit 35.1 VOL% (35.7-47.0); Hemoglobin 10.6 GM/DL (12.0-16.0); Immature Granulocytes % 0.2 %; Immature Granulocytes Absolute 0.01 #; Lymphocytes # 0.4 10*3/uL (1.4-4.0); Mean Corpuscular HGB Conc 30.2 GM/DL (32-36); Mean Corpuscular Hemoglobin 28 PG (27-34); Mean Corpuscular Volume 91.4 FL (87-102); Mean Platelet Volume 11.1 FL (9.6-12.0); Monocytes # 0.7 10*3/uL (0.11-0.8); Monocytes % 13.1 % (1.7-12.7); Neutrophils # 3.9 10*3/uL (1.4-7.4); Platelet Count 150 T/CUMM (130-400); Red Blood Count 3.84 MC/CUMM (3.8-5.5); Red Cell Distribution Width 16.8 % (9.3-17.3); White Blood Count 5.5 T/CUMM (4-12)
[2018-10-20 07:27] LABS: Calcium 9.6 MG/DL (8.5-10.1); Osmolality,Calculated 273.1 MOS/KG (273-304); Potassium 4.1 MMOL/L (3.5-5.1)
[2018-10-20] MEDS: INSULIN GLARGINE 100 UNIT/ML SUBCUT SCH (09:01)
[2018-10-20] MEDS: METOPROLOL TARTRATE 100 MG TABLET PO SCH (09:12)
[2018-10-20] MEDS: ISOSORBIDE DINITRATE 20 MG TABLET PO SCH ×3 (09:12→16:47)
[2018-10-20] MEDS: THEOPHYLLINE ER (24 HR) 300 MG CAPSULE PO SCH (09:13)
[2018-10-20] MEDS: SEVELAMER CARBONATE 800 MG TABLET PO SCH ×3 (09:13→16:57)
[2018-10-20] MEDS: COLESTIPOL 1 GM TABLET PO SCH ×2 (09:13→21:31)
[2018-10-20] MEDS: PARoxetine 10 MG TABLET PO SCH (09:13)
[2018-10-20] MEDS: levETIRAcetam 250 MG TABLET PO SCH ×2 (09:14→21:31)
[2018-10-20] MEDS: SIMETHICONE CHEW 80 MG TABLET PO SCH ×3 (09:14→16:57)
[2018-10-20] MEDS: PANTOPRAZOLE 40 MG TABLET PO SCH (09:16)
[2018-10-20] MEDS: BUDESONIDE/FORMOTEROL 160-4.5 INHALER 6 GM INH SCH ×2 (09:17→21:30)
[2018-10-20] MEDS ORDERED: PROPOFOL 200 MG/20 ML VIAL IV ONE (10:00)
[2018-10-20] MEDS ORDERED: LIDOCAINE 100 MG/5 ML SYRINGE ONE (10:00)
[2018-10-20] MEDS: DOXAZOSIN 1 MG TABLET PO SCH (21:31)
[2018-10-20] MEDS: traZODone 50 MG TABLET PO SCH (22:02)
[2018-10-20] MEDS: LEVOFLOXACIN INJ 500 MG in PREMIX 1 EACH IV SCH (22:02)
[2018-10-20] MEDS: ATORVASTATIN 40 MG TABLET PO SCH (22:02)
[2018-10-21] MEDS: ALBUTEROL/IPRATROPIUM 3 ML NEB RESP TX SCH ×3 (01:28→13:52)
[2018-10-21 05:49] LABS: Basophils % 0.3 % (0.0-0.8); Eosinophils # 0.4 10*3/uL (0.0-0.87); Eosinophils % 5.8 % (0.00-10.9); Hematocrit 29.6 VOL% (35.7-47.0); Hemoglobin 8.9 GM/DL (12.0-16.0); Immature Granulocytes % 0.3 %; Immature Granulocytes Absolute 0.02 #; Lymphocytes # 0.4 10*3/uL (1.4-4.0); Lymphocytes % 5.9 % (21.3-54.2); Mean Corpuscular HGB Conc 30.1 GM/DL (32-36); Mean Corpuscular Hemoglobin 27 PG (27-34); Mean Corpuscular Volume 89.7 FL (87-102); Mean Platelet Volume 10.9 FL (9.6-12.0); Monocytes % 14.6 % (1.7-12.7); Neutrophils # 5.1 10*3/uL (1.4-7.4); Neutrophils % 73.1 % (38.7-73.9); Platelet Count 155 T/CUMM (130-400); Red Cell Distribution Width 16.6 % (9.3-17.3); White Blood Count 6.9 T/CUMM (4-12)
[2018-10-21 06:20] LABS: Albumin 3.1 G/DL (3.4-5.0); Bilirubin,Total 0.4 MG/DL (0.2-1.0); Calcium 9.5 MG/DL (8.5-10.1); Osmolality,Calculated 282.4 MOS/KG (273-304); Total Protein 7.4 G/DL (6.4-8.3)
[2018-10-21] MEDS: SIMETHICONE CHEW 80 MG TABLET PO SCH ×3 (08:03→17:11)
[2018-10-21] MEDS: ISOSORBIDE DINITRATE 20 MG TABLET PO SCH ×3 (08:03→17:10)
[2018-10-21] MEDS: THEOPHYLLINE ER (24 HR) 300 MG CAPSULE PO SCH (08:04)
[2018-10-21] MEDS: SEVELAMER CARBONATE 800 MG TABLET PO SCH ×3 (08:05→17:10)
[2018-10-21] MEDS: levETIRAcetam 250 MG TABLET PO SCH (08:05)
[2018-10-21] MEDS: COLESTIPOL 1 GM TABLET PO SCH (08:05)
[2018-10-21] MEDS: INSULIN GLARGINE 100 UNIT/ML SUBCUT SCH (08:05)
[2018-10-21] MEDS: PARoxetine 10 MG TABLET PO SCH (08:05)
[2018-10-21] MEDS: PANTOPRAZOLE 40 MG TABLET PO SCH (08:05)
[2018-10-21] MEDS: INSULIN REGULAR 100 UNIT/ML SUBCUT SCH ×3 (08:06→17:09)
[2018-10-21] MEDS: METOPROLOL TARTRATE 100 MG TABLET PO SCH (08:10)
[2018-10-21] MEDS: BUDESONIDE/FORMOTEROL 160-4.5 INHALER 6 GM INH SCH (08:10)
[2018-10-21] MEDS: CINACALCET 30 MG TABLET PO SCH (08:10)
[2018-10-21 17:26] VITALS: BP 141/59
== END 2018-10-21 17:28 | DRG 391 ==
LOC: EDBD → EDUNIT# → N.ED 16:13 → N.EDINP 18:37 → N.5E 19:35
PROVIDERS: ADMIT Internal Medicine; ATTEND Internal Medicine

== ENCOUNTER 2019-01-16 09:24 | Inpatient (IN) ==
[2019-01-16] MEDS ORDERED: ONDANSETRON 4 MG/2 ML VIAL IV STA (09:44)
[2019-01-16] MEDS ORDERED: methylPREDNISolone SOD SUC 125 MG/2 ML VIAL IV STA (09:44)
[2019-01-16] MEDS ORDERED: MORPHINE 4 MG/1 ML VIAL IV STA (09:44)
[2019-01-16] MEDS ORDERED: ASPIRIN 325 MG TABLET PO STA (09:44)
[2019-01-16] MEDS ORDERED: ALBUTEROL/IPRATROPIUM 3 ML NEB RESP TX STA (09:44)
[2019-01-16] MEDS ORDERED: NITROGLYCERIN 2% OINT 1 INCH/GM PACK TOP STA (09:44)
[2019-01-16 10:17] LABS: Basophils % 0.3 % (0.0-0.8); Eosinophils # 0.3 10*3/uL (0.0-0.87); Eosinophils % 3.3 % (0.00-10.9); Hematocrit 37.4 VOL% (35.7-47.0); Hemoglobin 11.1 GM/DL (12.0-16.0); Immature Granulocytes % 0.6 %; Immature Granulocytes Absolute 0.06 #; Lymphocytes # 0.4 10*3/uL (1.4-4.0); Lymphocytes % 4.1 % (21.3-54.2); Mean Corpuscular HGB Conc 29.7 GM/DL (32-36); Mean Corpuscular Volume 97.1 FL (87-102); Mean Platelet Volume 10.3 FL (9.6-12.0); Monocytes % 8.8 % (1.7-12.7); Neutrophils % 82.9 % (38.7-73.9); Platelet Count 153 T/CUMM (130-400); Red Blood Count 3.85 MC/CUMM (3.8-5.5); Red Cell Distribution Width 18.8 % (9.3-17.3); White Blood Count 10.1 T/CUMM (4-12)
[2019-01-16 10:24] LABS: PT Patient Result 10.7 SECS
[2019-01-16 10:36] LABS: Band Neutrophils 1 % (0-10); Eosinophils 3 % (0-10); Lymphocytes 3 % (20-55); Segmented Neutrophils 87 % (50-85); Total Cells Counted 100
[2019-01-16 10:37] LABS: Hypochromasia 1+
[2019-01-16 10:38] LABS: Anisocytosis 1+; Macrocytosis 1+; Platelet Estimate Adequate
[2019-01-16 10:39] LABS: Albumin 3.5 G/DL (3.4-5.0); Bilirubin,Total 0.4 MG/DL (0.2-1.0); Calcium 9.5 MG/DL (8.5-10.1); Osmolality,Calculated 314.8 MOS/KG (273-304); Total Protein 6.8 G/DL (6.4-8.3)
[2019-01-16] MEDS ORDERED: CALCIUM CHLORIDE 1,000 MG/10 ML SYRINGE IV STA (11:19)
[2019-01-16] MEDS ORDERED: hydrALAZINE 20 MG/1 ML VIAL ONE (11:37)
[2019-01-16] MEDS ORDERED: ONDANSETRON 4 MG/2 ML VIAL IM STA (11:55)
[2019-01-16] MEDS ORDERED: hydrALAZINE 20 MG/1 ML VIAL IM STA (11:55)
[2019-01-16] MEDS ORDERED: GLUCAGON 1 MG VIAL IM PRN (13:14)
[2019-01-16] MEDS ORDERED: ONDANSETRON 4 MG/2 ML VIAL IV PRN (13:14)
[2019-01-16] MEDS ORDERED: ACETAMINOPHEN 325 MG TABLET PO PRN (13:14)
[2019-01-16] MEDS ORDERED: DEXTROSE 50% 25 GM/50 ML VIAL IV PRN (13:14)
[2019-01-16] MEDS ORDERED: MORPHINE 4 MG/1 ML VIAL IV PRN (13:14)
[2019-01-16] MEDS: INSULIN REGULAR 100 UNIT/ML SUBCUT SCH (19:05)
[2019-01-16] MEDS: DOCUSATE SODIUM 100 MG CAPSULE PO SCH (20:29)
[2019-01-16] MEDS ORDERED: BISACODYL 10 MG SUPP RECTAL PRN (22:36)
[2019-01-16] MEDS ORDERED: SIMETHICONE CHEW 80 MG TABLET PO PRN (22:36)
[2019-01-17] MEDS: INSULIN REGULAR 100 UNIT/ML SUBCUT SCH ×4 (00:18→18:07)
[2019-01-17] MEDS: ALBUTEROL/IPRATROPIUM 3 ML NEB RESP TX SCH ×4 (01:10→20:04)
[2019-01-17 06:02] LABS: Basophils % 0.2 % (0.0-0.8); Eosinophils # 0.1 10*3/uL (0.0-0.87); Eosinophils % 1.2 % (0.00-10.9); Hematocrit 39.4 VOL% (35.7-47.0); Immature Granulocytes % 0.3 %; Immature Granulocytes Absolute 0.03 #; Lymphocytes # 0.5 10*3/uL (1.4-4.0); Lymphocytes % 5.5 % (21.3-54.2); Mean Corpuscular HGB Conc 30.5 GM/DL (32-36); Mean Corpuscular Volume 95.9 FL (87-102); Mean Platelet Volume 11.7 FL (9.6-12.0); Monocytes % 15.1 % (1.7-12.7); Neutrophils % 77.7 % (38.7-73.9); Platelet Count 146 T/CUMM (130-400); Red Blood Count 4.11 MC/CUMM (3.8-5.5); Red Cell Distribution Width 18.2 % (9.3-17.3); White Blood Count 9.1 T/CUMM (4-12)
[2019-01-17 06:21] LABS: Albumin 3.4 G/DL (3.4-5.0); Bilirubin,Total 0.4 MG/DL (0.2-1.0); Calcium 9.2 MG/DL (8.5-10.1); Osmolality,Calculated 290.1 MOS/KG (273-304); Total Protein 7.1 G/DL (6.4-8.3)
[2019-01-17] MEDS ORDERED: INSULIN GLARGINE 100 UNIT/ML SUBCUT SCH (08:00)
[2019-01-17] MEDS: ISOSORBIDE MONONITRATE 60 MG TABLET PO SCH (08:45)
[2019-01-17] MEDS: SEVELAMER CARBONATE 800 MG TABLET PO SCH ×3 (08:45→18:07)
[2019-01-17] MEDS: CALCITRIOL 0.5 MCG CAPSULE PO SCH ×2 (08:45→20:34)
[2019-01-17] MEDS: levETIRAcetam 250 MG TABLET PO SCH ×2 (08:45→20:33)
[2019-01-17] MEDS: DOCUSATE SODIUM 100 MG CAPSULE PO SCH ×2 (08:46→20:34)
[2019-01-17] MEDS: PARoxetine 20 MG TABLET PO SCH (08:46)
[2019-01-17] MEDS: THEOPHYLLINE ER 300 MG TABLET PO SCH (08:46)
[2019-01-17] MEDS: PANTOPRAZOLE 40 MG TABLET PO SCH (08:47)
[2019-01-17] MEDS: ASPIRIN CHEW 81 MG TABLET PO SCH (08:47)
[2019-01-17] MEDS: MULTIVITAMIN (BEROCCA) TABLET PO SCH (08:47)
[2019-01-17] MEDS: METOPROLOL TARTRATE 25 MG TABLET PO SCH ×2 (08:47→20:34)
[2019-01-17] MEDS: POLYETHYLENE GLYCOL POWDER 17 GM PACK PO SCH (08:49)
[2019-01-17] MEDS ORDERED: DOCUSATE SODIUM 100 MG PO SCH (09:00)
[2019-01-17] MEDS: DOXAZOSIN 1 MG TABLET PO SCH (20:33)
[2019-01-17] MEDS: traZODone 50 MG TABLET PO SCH (20:33)
[2019-01-17] MEDS ORDERED: DOXAZOSIN 1 MG TABLET PO SCH (21:00)
[2019-01-17] MEDS ORDERED: MAGNESIUM CITRATE 300 ML BOTTLE PO PRN (21:41)
[2019-01-18] MEDS: INSULIN REGULAR 100 UNIT/ML SUBCUT SCH ×4 (00:16→17:04)
[2019-01-18] MEDS: ALBUTEROL/IPRATROPIUM 3 ML NEB RESP TX SCH ×4 (00:29→19:25)
[2019-01-18 04:59] LABS: Basophils % 0.4 % (0.0-0.8); Eosinophils # 0.4 10*3/uL (0.0-0.87); Eosinophils % 6.1 % (0.00-10.9); Hematocrit 34.1 VOL% (35.7-47.0); Hemoglobin 10.4 GM/DL (12.0-16.0); Immature Granulocytes % 0.4 %; Immature Granulocytes Absolute 0.03 #; Lymphocytes # 0.8 10*3/uL (1.4-4.0); Lymphocytes % 10.9 % (21.3-54.2); Mean Corpuscular HGB Conc 30.5 GM/DL (32-36); Mean Corpuscular Volume 94.2 FL (87-102); Mean Platelet Volume 12.3 FL (9.6-12.0); Neutrophils % 70.2 % (38.7-73.9); Platelet Count 142 T/CUMM (130-400); Red Blood Count 3.62 MC/CUMM (3.8-5.5); Red Cell Distribution Width 18.1 % (9.3-17.3); White Blood Count 7.2 T/CUMM (4-12)
[2019-01-18 05:20] LABS: Calcium 8.4 MG/DL (8.5-10.1); Osmolality,Calculated 295.1 MOS/KG (273-304)
[2019-01-18] MEDS ORDERED: INSULIN GLARGINE 100 UNIT/ML SUBCUT SCH (08:00)
[2019-01-18] MEDS: levETIRAcetam 250 MG TABLET PO SCH ×2 (08:45→21:57)
[2019-01-18] MEDS: ASPIRIN CHEW 81 MG TABLET PO SCH (08:45)
[2019-01-18] MEDS: CALCITRIOL 0.5 MCG CAPSULE PO SCH ×2 (08:45→21:57)
[2019-01-18] MEDS: PANTOPRAZOLE 40 MG TABLET PO SCH (08:45)
[2019-01-18] MEDS: CINACALCET 30 MG TABLET PO SCH (08:45)
[2019-01-18] MEDS: DOCUSATE SODIUM 100 MG CAPSULE PO SCH ×2 (08:45→21:57)
[2019-01-18] MEDS: ISOSORBIDE MONONITRATE 60 MG TABLET PO SCH (08:46)
[2019-01-18] MEDS: MULTIVITAMIN (BEROCCA) TABLET PO SCH (08:46)
[2019-01-18] MEDS: BISACODYL 5 MG TABLET PO SCH (08:46)
[2019-01-18] MEDS: POLYETHYLENE GLYCOL POWDER 17 GM PACK PO SCH (08:46)
[2019-01-18] MEDS: METOPROLOL TARTRATE 25 MG TABLET PO SCH ×2 (08:46→21:56)
[2019-01-18] MEDS: SEVELAMER CARBONATE 800 MG TABLET PO SCH ×3 (08:46→16:55)
[2019-01-18] MEDS: THEOPHYLLINE ER 300 MG TABLET PO SCH (08:46)
[2019-01-18] MEDS: PARoxetine 20 MG TABLET PO SCH (08:46)
[2019-01-18] MEDS: DOXAZOSIN 1 MG TABLET PO SCH (21:56)
[2019-01-18] MEDS: traZODone 50 MG TABLET PO SCH (21:57)
[2019-01-19] MEDS: ALBUTEROL/IPRATROPIUM 3 ML NEB RESP TX SCH ×4 (01:32→18:44)
[2019-01-19 05:15] LABS: Calcium 8.3 MG/DL (8.5-10.1); Osmolality,Calculated 296.1 MOS/KG (273-304)
[2019-01-19] MEDS: INSULIN REGULAR 100 UNIT/ML SUBCUT SCH ×4 (06:00→18:22)
[2019-01-19] MEDS: ISOSORBIDE MONONITRATE 60 MG TABLET PO SCH (09:15)
[2019-01-19] MEDS: DOCUSATE SODIUM 100 MG CAPSULE PO SCH ×2 (09:15→21:06)
[2019-01-19] MEDS: METOPROLOL TARTRATE 25 MG TABLET PO SCH ×2 (09:15→21:05)
[2019-01-19] MEDS: SEVELAMER CARBONATE 800 MG TABLET PO SCH ×3 (09:15→18:17)
[2019-01-19] MEDS: ASPIRIN CHEW 81 MG TABLET PO SCH (09:15)
[2019-01-19] MEDS: MULTIVITAMIN (BEROCCA) TABLET PO SCH (09:15)
[2019-01-19] MEDS: levETIRAcetam 250 MG TABLET PO SCH ×2 (09:15→21:06)
[2019-01-19] MEDS: INSULIN GLARGINE 100 UNIT/ML SUBCUT SCH (09:15)
[2019-01-19] MEDS: PANTOPRAZOLE 40 MG TABLET PO SCH (09:16)
[2019-01-19] MEDS: POLYETHYLENE GLYCOL POWDER 17 GM PACK PO SCH (09:16)
[2019-01-19] MEDS: CALCITRIOL 0.5 MCG CAPSULE PO SCH ×2 (09:16→21:08)
[2019-01-19] MEDS: THEOPHYLLINE ER 300 MG TABLET PO SCH (09:16)
[2019-01-19] MEDS: PARoxetine 20 MG TABLET PO SCH (09:16)
[2019-01-19] MEDS: traZODone 50 MG TABLET PO SCH (21:05)
[2019-01-19] MEDS: DOXAZOSIN 1 MG TABLET PO SCH (21:05)
[2019-01-19] MEDS: MAGNESIUM CITRATE 300 ML BOTTLE PO SCH (22:32)
[2019-01-20] MEDS: INSULIN REGULAR 100 UNIT/ML SUBCUT SCH ×3 (00:20→14:07)
[2019-01-20] MEDS: ALBUTEROL/IPRATROPIUM 3 ML NEB RESP TX SCH ×3 (01:20→13:20)
[2019-01-20 05:45] LABS: Calcium 8.6 MG/DL (8.5-10.1); Osmolality,Calculated 295.1 MOS/KG (273-304)
[2019-01-20] MEDS: MAGNESIUM CITRATE 300 ML BOTTLE PO SCH ×2 (06:56→14:12)
[2019-01-20] MEDS: SEVELAMER CARBONATE 800 MG TABLET PO SCH ×2 (08:00→13:10)
[2019-01-20 13:14] VITALS: BP 158/100
[2019-01-20] MEDS: INSULIN GLARGINE 100 UNIT/ML SUBCUT SCH (14:07)
[2019-01-20] MEDS: PANTOPRAZOLE 40 MG TABLET PO SCH (14:08)
[2019-01-20] MEDS: DOCUSATE SODIUM 100 MG CAPSULE PO SCH (14:08)
[2019-01-20] MEDS: ISOSORBIDE MONONITRATE 60 MG TABLET PO SCH (14:08)
[2019-01-20] MEDS: POLYETHYLENE GLYCOL POWDER 17 GM PACK PO SCH (14:08)
[2019-01-20] MEDS: BISACODYL 5 MG TABLET PO SCH (14:09)
[2019-01-20] MEDS: MULTIVITAMIN (BEROCCA) TABLET PO SCH (14:09)
[2019-01-20] MEDS: PARoxetine 20 MG TABLET PO SCH (14:10)
[2019-01-20] MEDS: THEOPHYLLINE ER 300 MG TABLET PO SCH (14:10)
[2019-01-20] MEDS: levETIRAcetam 250 MG TABLET PO SCH (14:11)
[2019-01-20] MEDS: ASPIRIN CHEW 81 MG TABLET PO SCH (14:11)
[2019-01-20] MEDS: CALCITRIOL 0.5 MCG CAPSULE PO SCH (14:11)
[2019-01-20] MEDS: METOPROLOL TARTRATE 25 MG TABLET PO SCH (14:11)
[2019-01-20] MEDS: CINACALCET 30 MG TABLET PO SCH (14:12)
== END 2019-01-20 15:29 | DRG 291 ==
LOC: N.ED 09:24 → N.EDINP 11:17 → N.TELEN 18:07
PROVIDERS: ADMIT Internal Medicine; ATTEND Internal Medicine

== ENCOUNTER 2019-04-29 10:41 | Inpatient (IN) ==
[2019-04-29] MEDS ORDERED: ONDANSETRON 4 MG/2 ML VIAL IV STA (11:02)
[2019-04-29] MEDS ORDERED: ALBUTEROL/IPRATROPIUM 3 ML NEB RESP TX STA (11:02)
[2019-04-29 12:28] LABS: Basophils % 0.3 % (0.0-0.8); Eosinophils # 0.2 10*3/uL (0.0-0.87); Eosinophils % 2.5 % (0.00-10.9); Hematocrit 32.3 VOL% (35.7-47.0); Hemoglobin 9.7 GM/DL (12.0-16.0); Immature Granulocytes % 0.5 %; Immature Granulocytes Absolute 0.04 #; Lymphocytes # 0.3 10*3/uL (1.4-4.0); Lymphocytes % 3.7 % (21.3-54.2); Mean Corpuscular Volume 91.2 FL (87-102); Mean Platelet Volume 10.6 FL (9.6-12.0); Monocytes % 9.7 % (1.7-12.7); Neutrophils % 83.3 % (38.7-73.9); Platelet Count 194 T/CUMM (130-400); Red Blood Count 3.54 MC/CUMM (3.8-5.5); White Blood Count 7.6 T/CUMM (4-12)
[2019-04-29 12:39] LABS: INR 1.1; PT Patient Result 11.5 SECS (9.6-12.2); Partial Thromboplastin Time 28.7 SECS (20.8-36.0)
[2019-04-29 12:57] LABS: Albumin 3.7 G/DL (3.4-5.0); Bilirubin,Total 0.5 MG/DL (0.2-1.0); CKMB % 3.7 %; Calcium 8.7 MG/DL (8.5-10.1); Osmolality,Calculated 323.4 MOS/KG (273-304); Total Protein 7.6 G/DL (6.4-8.3)
[2019-04-29 12:59] LABS: Troponin I 0.197 NG/ML (0.00-0.045)
[2019-04-29 13:00] LABS: Hypochromasia 1+; Lymphocytes 5 % (20-55); Microcytosis 1+; Segmented Neutrophils 87 % (50-85); Total Cells Counted 100
[2019-04-29 13:01] LABS: Ovalocytes Slight; Platelet Estimate Adequate
[2019-04-29] MEDS ORDERED: CALCIUM CHLORIDE 1,000 MG/10 ML SYRINGE IV STA (13:03)
[2019-04-29] MEDS ORDERED: ALBUTEROL NEB SOLN 5 MG/ML 20 ML/BOTTLE CONT NEB STA (13:03)
[2019-04-29] MEDS ORDERED: DEXTROSE 50% 25 GM/50 ML VIAL IV STA (13:03)
[2019-04-29] MEDS ORDERED: SODIUM BICARBONATE 50 MEQ/50 ML VIAL IV STA (13:04)
[2019-04-29] MEDS ORDERED: INSULIN REGULAR 100 UNIT/ML IV STA (13:04)
[2019-04-29] MEDS ORDERED: SODIUM BICARBONATE 50 MEQ/50 ML SYRINGE IV ONE (13:15)
[2019-04-29] MEDS ORDERED: DEXTROSE 50% 25 GM/50 ML SYRINGE IV ONE (13:15)
[2019-04-29] MEDS ORDERED: ONDANSETRON 4 MG/2 ML VIAL IV PRN (13:25)
[2019-04-29] MEDS ORDERED: GLUCAGON 1 MG VIAL IM PRN (13:25)
[2019-04-29] MEDS ORDERED: DEXTROSE 50% 25 GM/50 ML VIAL IV PRN (13:25)
[2019-04-29] MEDS ORDERED: hydrALAZINE 20 MG/1 ML VIAL IV ONE (16:06)
[2019-04-29] MEDS ORDERED: hydrALAZINE 20 MG/1 ML VIAL IV PRN (16:15)
[2019-04-29] MEDS ORDERED: ALBUTEROL/IPRATROPIUM 3 ML NEB RESP TX PRN (16:18)
[2019-04-29] MEDS ORDERED: PROMETHAZINE 25 MG/1 ML VIAL IM PRN (16:18)
[2019-04-29] MEDS ORDERED: BISACODYL 10 MG SUPP RECTAL PRN (16:18)
[2019-04-29] MEDS ORDERED: SIMETHICONE CHEW 80 MG TABLET PO PRN (16:18)
[2019-04-29] MEDS: POLYETHYLENE GLYCOL POWDER 17 GM PACK PO SCH (17:37)
[2019-04-29] MEDS: INSULIN REGULAR 100 UNIT/ML SUBCUT SCH (17:37)
[2019-04-29] MEDS: SEVELAMER CARBONATE 800 MG TABLET PO SCH (17:37)
[2019-04-29] MEDS: ISOSORBIDE MONONITRATE 60 MG TABLET PO SCH (18:14)
[2019-04-29] MEDS ORDERED: ALBUTEROL 2.5 MG/3 ML NEB RESP TX PRN (19:00)
[2019-04-29] MEDS: CALCITRIOL 0.5 MCG CAPSULE PO SCH (20:55)
[2019-04-29] MEDS: PANTOPRAZOLE 40 MG TABLET PO SCH (20:55)
[2019-04-29] MEDS: ATORVASTATIN 40 MG TABLET PO SCH (20:55)
[2019-04-29] MEDS: BUDESONIDE/FORMOTEROL 160-4.5 INHALER 6 GM INH SCH (20:55)
[2019-04-29] MEDS: METOPROLOL TARTRATE 25 MG TABLET PO SCH (20:55)
[2019-04-29] MEDS: levETIRAcetam 250 MG TABLET PO SCH (20:55)
[2019-04-29] MEDS ORDERED: traZODone 50 MG TABLET PO SCH (21:00)
[2019-04-29 21:10] LABS: Calcium 8.9 MG/DL (8.5-10.1); Osmolality,Calculated 292.4 MOS/KG (273-304)
[2019-04-29] MEDS ORDERED: MAGNESIUM SULF RIDER 2 GM in PREMIX 1 EACH IV PRN (22:09)
[2019-04-29] MEDS ORDERED: MAGNESIUM SULF RIDER 4 GM in PREMIX 1 EACH IV PRN (22:09)
[2019-04-29] MEDS ORDERED: cloNIDine 0.2 MG/24 HR PATCH TRANSDERM SCH (22:30)
[2019-04-30] MEDS: INSULIN REGULAR 100 UNIT/ML SUBCUT SCH ×5 (01:15→22:01)
[2019-04-30 05:42] LABS: Basophils % 0.5 % (0.0-0.8); Eosinophils # 0.3 10*3/uL (0.0-0.87); Eosinophils % 4.6 % (0.00-10.9); Hematocrit 28.8 VOL% (35.7-47.0); Hemoglobin 8.9 GM/DL (12.0-16.0); Immature Granulocytes % 0.3 %; Immature Granulocytes Absolute 0.02 #; Lymphocytes # 0.4 10*3/uL (1.4-4.0); Lymphocytes % 5.9 % (21.3-54.2); Mean Corpuscular HGB Conc 30.9 GM/DL (32-36); Mean Corpuscular Volume 90.9 FL (87-102); Mean Platelet Volume 11.2 FL (9.6-12.0); Monocytes % 13.9 % (1.7-12.7); Neutrophils % 74.8 % (38.7-73.9); Red Blood Count 3.17 MC/CUMM (3.8-5.5); Red Cell Distribution Width 18.6 % (9.3-17.3); White Blood Count 6.5 T/CUMM (4-12)
[2019-04-30 05:48] LABS: Platelet Count 144 T/CUMM (130-400)
[2019-04-30 06:00] LABS: Calcium 8.7 MG/DL (8.5-10.1); Osmolality,Calculated 300.4 MOS/KG (273-304)
[2019-04-30 06:42] LABS: Anisocytosis 1+; Macrocytosis 1+; Platelet Estimate Adequate; Poikilocytosis Slight
[2019-04-30 06:43] LABS: Helmet Cells Few
[2019-04-30] MEDS: THEOPHYLLINE ER 300 MG TABLET PO SCH (09:00)
[2019-04-30] MEDS: PARoxetine 10 MG TABLET PO SCH (09:00)
[2019-04-30] MEDS: SEVELAMER CARBONATE 800 MG TABLET PO SCH ×3 (09:00→17:10)
[2019-04-30] MEDS: ASPIRIN CHEW 81 MG TABLET PO SCH (09:00)
[2019-04-30] MEDS: CALCITRIOL 0.5 MCG CAPSULE PO SCH ×2 (09:01→22:00)
[2019-04-30] MEDS: INSULIN GLARGINE 100 UNIT/ML SUBCUT SCH (09:01)
[2019-04-30] MEDS: METOPROLOL TARTRATE 25 MG TABLET PO SCH ×2 (09:01→22:00)
[2019-04-30] MEDS: levETIRAcetam 250 MG TABLET PO SCH ×2 (09:01→22:01)
[2019-04-30] MEDS: BISACODYL 5 MG TABLET PO SCH (09:01)
[2019-04-30] MEDS: ISOSORBIDE MONONITRATE 60 MG TABLET PO SCH (09:01)
[2019-04-30] MEDS: BUDESONIDE/FORMOTEROL 160-4.5 INHALER 6 GM INH SCH ×2 (09:36→22:00)
[2019-04-30] MEDS: PIPERACILLIN/TAZOBACTAM 3,375 MG in SODIUM CHLORIDE 0.9% 100 ML IV SCH (15:19)
[2019-04-30] MEDS: POLYETHYLENE GLYCOL POWDER 17 GM PACK PO SCH (17:10)
[2019-04-30] MEDS: ATORVASTATIN 40 MG TABLET PO SCH (22:00)
[2019-04-30] MEDS: PANTOPRAZOLE 40 MG TABLET PO SCH (22:00)
[2019-04-30] MEDS: traZODone 50 MG TABLET PO SCH (22:00)
[2019-05-01] MEDS: PIPERACILLIN/TAZOBACTAM 3,375 MG in SODIUM CHLORIDE 0.9% 100 ML IV SCH ×2 (00:41→14:41)
[2019-05-01 08:37] LABS: Troponin I 0.188 NG/ML (0.00-0.045)
[2019-05-01 11:40] LABS: Troponin I 0.179 NG/ML (0.00-0.045)
[2019-05-01] MEDS: PARoxetine 10 MG TABLET PO SCH (11:43)
[2019-05-01] MEDS: CALCITRIOL 0.5 MCG CAPSULE PO SCH ×2 (11:43→21:09)
[2019-05-01] MEDS: ISOSORBIDE MONONITRATE 60 MG TABLET PO SCH (11:43)
[2019-05-01] MEDS: BISACODYL 5 MG TABLET PO SCH (11:44)
[2019-05-01] MEDS: METOPROLOL TARTRATE 25 MG TABLET PO SCH ×2 (11:44→21:14)
[2019-05-01] MEDS: levETIRAcetam 250 MG TABLET PO SCH ×2 (11:44→21:09)
[2019-05-01] MEDS: ASPIRIN CHEW 81 MG TABLET PO SCH (11:44)
[2019-05-01] MEDS: SEVELAMER CARBONATE 800 MG TABLET PO SCH ×3 (11:44→18:28)
[2019-05-01] MEDS: THEOPHYLLINE ER 300 MG TABLET PO SCH (11:45)
[2019-05-01] MEDS: INSULIN REGULAR 100 UNIT/ML SUBCUT SCH ×4 (13:05→21:10)
[2019-05-01] MEDS: BUDESONIDE/FORMOTEROL 160-4.5 INHALER 6 GM INH SCH ×2 (13:06→21:14)
[2019-05-01] MEDS: INSULIN GLARGINE 100 UNIT/ML SUBCUT SCH (13:44)
[2019-05-01] MEDS: POLYETHYLENE GLYCOL POWDER 17 GM PACK PO SCH (18:28)
[2019-05-01] MEDS ORDERED: ALBUTEROL 2.5 MG/3 ML NEB RESP TX PRN (20:19)
[2019-05-01] MEDS: traZODone 50 MG TABLET PO SCH (21:09)
[2019-05-01] MEDS: PANTOPRAZOLE 40 MG TABLET PO SCH (21:09)
[2019-05-01] MEDS: ATORVASTATIN 40 MG TABLET PO SCH (21:09)
[2019-05-02] MEDS: ALBUTEROL/IPRATROPIUM 3 ML NEB RESP TX SCH ×4 (00:21→20:08)
[2019-05-02] MEDS: PIPERACILLIN/TAZOBACTAM 3,375 MG in SODIUM CHLORIDE 0.9% 100 ML IV SCH ×2 (03:18→15:20)
[2019-05-02 06:13] LABS: Basophils % 0.5 % (0.0-0.8); Eosinophils # 0.5 10*3/uL (0.0-0.87); Eosinophils % 8.9 % (0.00-10.9); Hematocrit 29.4 VOL% (35.7-47.0); Hemoglobin 8.6 GM/DL (12.0-16.0); Immature Granulocytes % 0.3 %; Immature Granulocytes Absolute 0.02 #; Lymphocytes # 0.5 10*3/uL (1.4-4.0); Lymphocytes % 8.4 % (21.3-54.2); Mean Corpuscular HGB Conc 29.3 GM/DL (32-36); Mean Corpuscular Volume 92.5 FL (87-102); Mean Platelet Volume 10.9 FL (9.6-12.0); Monocytes % 14.1 % (1.7-12.7); Neutrophils % 67.8 % (38.7-73.9); Platelet Count 153 T/CUMM (130-400); Red Blood Count 3.18 MC/CUMM (3.8-5.5); Red Cell Distribution Width 17.5 % (9.3-17.3)
[2019-05-02 06:29] LABS: Calcium 9.4 MG/DL (8.5-10.1); Osmolality,Calculated 291.7 MOS/KG (273-304)
[2019-05-02] MEDS: INSULIN REGULAR 100 UNIT/ML SUBCUT SCH ×4 (08:54→22:37)
[2019-05-02] MEDS: ISOSORBIDE MONONITRATE 60 MG TABLET PO SCH (09:45)
[2019-05-02] MEDS: METOPROLOL TARTRATE 25 MG TABLET PO SCH ×2 (09:45→22:33)
[2019-05-02] MEDS: ASPIRIN CHEW 81 MG TABLET PO SCH (09:46)
[2019-05-02] MEDS: SEVELAMER CARBONATE 800 MG TABLET PO SCH ×3 (09:46→16:49)
[2019-05-02] MEDS: THEOPHYLLINE ER 300 MG TABLET PO SCH (09:46)
[2019-05-02] MEDS: levETIRAcetam 250 MG TABLET PO SCH ×2 (09:46→22:34)
[2019-05-02] MEDS: PARoxetine 10 MG TABLET PO SCH (09:46)
[2019-05-02] MEDS: CALCITRIOL 0.5 MCG CAPSULE PO SCH ×2 (09:46→22:33)
[2019-05-02] MEDS: BISACODYL 5 MG TABLET PO SCH (09:46)
[2019-05-02] MEDS: INSULIN GLARGINE 100 UNIT/ML SUBCUT SCH (09:49)
[2019-05-02] MEDS: BUDESONIDE/FORMOTEROL 160-4.5 INHALER 6 GM INH SCH ×2 (11:58→22:36)
[2019-05-02] MEDS: POLYETHYLENE GLYCOL POWDER 17 GM PACK PO SCH (17:05)
[2019-05-02] MEDS: methylPREDNISolone SOD SUC 40 MG/1 ML VIAL IV SCH (17:05)
[2019-05-02] MEDS: traZODone 50 MG TABLET PO SCH (22:33)
[2019-05-02] MEDS: PANTOPRAZOLE 40 MG TABLET PO SCH (22:34)
[2019-05-02] MEDS: ATORVASTATIN 40 MG TABLET PO SCH (22:34)
[2019-05-03] MEDS: ALBUTEROL/IPRATROPIUM 3 ML NEB RESP TX SCH ×4 (01:54→19:57)
[2019-05-03] MEDS: PIPERACILLIN/TAZOBACTAM 3,375 MG in SODIUM CHLORIDE 0.9% 100 ML IV SCH ×2 (01:57→13:03)
[2019-05-03 04:35] LABS: Basophils % 0.5 % (0.0-0.8); Eosinophils # 0.6 10*3/uL (0.0-0.87); Eosinophils % 8.7 % (0.00-10.9); Hematocrit 26.3 VOL% (35.7-47.0); Hemoglobin 8.2 GM/DL (12.0-16.0); Immature Granulocytes % 0.3 %; Immature Granulocytes Absolute 0.02 #; Lymphocytes # 0.6 10*3/uL (1.4-4.0); Lymphocytes % 8.7 % (21.3-54.2); Mean Corpuscular HGB Conc 31.2 GM/DL (32-36); Monocytes % 10.8 % (1.7-12.7); Platelet Count 151 T/CUMM (130-400); Red Blood Count 2.89 MC/CUMM (3.8-5.5); Red Cell Distribution Width 17.2 % (9.3-17.3); White Blood Count 6.3 T/CUMM (4-12)
[2019-05-03] MEDS: methylPREDNISolone SOD SUC 40 MG/1 ML VIAL IV SCH ×2 (04:37→16:52)
[2019-05-03 04:51] LABS: Calcium 8.7 MG/DL (8.5-10.1); Osmolality,Calculated 297.8 MOS/KG (273-304)
[2019-05-03] MEDS: INSULIN GLARGINE 100 UNIT/ML SUBCUT SCH (08:42)
[2019-05-03] MEDS: INSULIN REGULAR 100 UNIT/ML SUBCUT SCH ×4 (08:42→21:01)
[2019-05-03] MEDS: BISACODYL 5 MG TABLET PO SCH (08:42)
[2019-05-03] MEDS: levETIRAcetam 250 MG TABLET PO SCH ×2 (08:42→21:01)
[2019-05-03] MEDS: ASPIRIN CHEW 81 MG TABLET PO SCH (08:42)
[2019-05-03] MEDS: ISOSORBIDE MONONITRATE 60 MG TABLET PO SCH (08:42)
[2019-05-03] MEDS: BUDESONIDE/FORMOTEROL 160-4.5 INHALER 6 GM INH SCH ×2 (08:43→21:02)
[2019-05-03] MEDS: NICOTINE 14 MG/24 HR PATCH TRANSDERM SCH (08:43)
[2019-05-03] MEDS: PARoxetine 10 MG TABLET PO SCH (08:43)
[2019-05-03] MEDS: METOPROLOL TARTRATE 25 MG TABLET PO SCH ×2 (08:43→21:02)
[2019-05-03] MEDS: CALCITRIOL 0.5 MCG CAPSULE PO SCH ×2 (08:43→21:02)
[2019-05-03] MEDS: SEVELAMER CARBONATE 800 MG TABLET PO SCH ×3 (08:43→16:52)
[2019-05-03] MEDS: THEOPHYLLINE ER 300 MG TABLET PO SCH (08:43)
[2019-05-03 11:12] LABS: Troponin I 0.142 NG/ML (0.00-0.045)
[2019-05-03 14:07] LABS: Troponin I 0.129 NG/ML (0.00-0.045)
[2019-05-03] MEDS: POLYETHYLENE GLYCOL POWDER 17 GM PACK PO SCH (16:52)
[2019-05-03 16:58] LABS: ABG Base Excess 1.5 MMOL/L (-2.5-2.5); ABG HCO3 25.7 MMOL/L (20-26); ABG Oxygen Saturation 89.7 % (95-100); ABG PCO2 41.3 MM HG (35-48); ABG PH 7.411 (7.35-7.45); ABG PO2 61.8 MM HG (80-95); ABG TCO2 24.1 MMOL/L (23-27)
[2019-05-03 17:29] LABS: Troponin I 0.121 NG/ML (0.00-0.045)
[2019-05-03] MEDS: traZODone 50 MG TABLET PO SCH (21:01)
[2019-05-03] MEDS: PANTOPRAZOLE 40 MG TABLET PO SCH (21:02)
[2019-05-03] MEDS: ATORVASTATIN 40 MG TABLET PO SCH (21:02)
[2019-05-03] MEDS ORDERED: INSULIN REGULAR 100 UNIT/ML SUBCUT ONE (22:42)
[2019-05-04] MEDS: ALBUTEROL/IPRATROPIUM 3 ML NEB RESP TX SCH ×4 (00:11→19:06)
[2019-05-04] MEDS: PIPERACILLIN/TAZOBACTAM 3,375 MG in SODIUM CHLORIDE 0.9% 100 ML IV SCH ×2 (02:36→13:10)
[2019-05-04 03:12] LABS: ABG Base Excess -0.7 MMOL/L (-2.5-2.5); ABG HCO3 23.6 MMOL/L (20-26); ABG Oxygen Saturation 86.4 % (95-100); ABG PCO2 52.8 MM HG (35-48); ABG PH 7.303 (7.35-7.45); ABG PO2 63.2 MM HG (80-95); ABG TCO2 24.4 MMOL/L (23-27); Allen Test Positive; Pt O2 Delivery Device Other
[2019-05-04] MEDS: methylPREDNISolone SOD SUC 40 MG/1 ML VIAL IV SCH ×2 (03:51→17:02)
[2019-05-04 04:30] LABS: ABG Base Excess -2.5 MMOL/L (-2.5-2.5); ABG HCO3 22.3 MMOL/L (20-26); ABG Oxygen Saturation 96.4 % (95-100); ABG PCO2 48.1 MM HG (35-48); ABG PH 7.306 (7.35-7.45); ABG PO2 98.5 MM HG (80-95); ABG TCO2 22.4 MMOL/L (23-27); Allen Test Positive; Pt O2 Delivery Device Other
[2019-05-04 05:05] LABS: Basophils % 0.5 % (0.0-0.8); Eosinophils # 0.3 10*3/uL (0.0-0.87); Eosinophils % 3.5 % (0.00-10.9); Hematocrit 29.7 VOL% (35.7-47.0); Hemoglobin 9.1 GM/DL (12.0-16.0); Immature Granulocytes % 0.3 %; Immature Granulocytes Absolute 0.02 #; Lymphocytes # 0.3 10*3/uL (1.4-4.0); Lymphocytes % 4.4 % (21.3-54.2); Mean Corpuscular HGB Conc 30.6 GM/DL (32-36); Mean Corpuscular Volume 90.5 FL (87-102); Mean Platelet Volume 11.6 FL (9.6-12.0); Monocytes % 10.6 % (1.7-12.7); Neutrophils % 80.7 % (38.7-73.9); Platelet Count 142 T/CUMM (130-400); Red Blood Count 3.28 MC/CUMM (3.8-5.5); Red Cell Distribution Width 16.8 % (9.3-17.3); White Blood Count 7.5 T/CUMM (4-12)
[2019-05-04 05:17] LABS: Calcium 8.9 MG/DL (8.5-10.1); Osmolality,Calculated 294.8 MOS/KG (273-304)
[2019-05-04 05:33] LABS: Eosinophils 3 % (0-10); Hypochromasia 1+; Lymphocytes 6 % (20-55); Platelet Estimate Adequate; Segmented Neutrophils 85 % (50-85); Total Cells Counted 100
[2019-05-04] MEDS: INSULIN GLARGINE 100 UNIT/ML SUBCUT SCH (08:21)
[2019-05-04] MEDS: INSULIN REGULAR 100 UNIT/ML SUBCUT SCH ×5 (08:21→22:38)
[2019-05-04] MEDS: ISOSORBIDE MONONITRATE 60 MG TABLET PO SCH (08:22)
[2019-05-04] MEDS: CALCITRIOL 0.5 MCG CAPSULE PO SCH ×2 (08:22→20:34)
[2019-05-04] MEDS: METOPROLOL TARTRATE 25 MG TABLET PO SCH (08:22)
[2019-05-04] MEDS: levETIRAcetam 250 MG TABLET PO SCH ×2 (08:22→20:34)
[2019-05-04] MEDS: THEOPHYLLINE ER 300 MG TABLET PO SCH (08:22)
[2019-05-04] MEDS: PARoxetine 10 MG TABLET PO SCH (08:23)
[2019-05-04] MEDS: BISACODYL 5 MG TABLET PO SCH (08:23)
[2019-05-04] MEDS: ASPIRIN CHEW 81 MG TABLET PO SCH (08:23)
[2019-05-04] MEDS: SEVELAMER CARBONATE 800 MG TABLET PO SCH ×3 (08:23→17:01)
[2019-05-04] MEDS: BUDESONIDE/FORMOTEROL 160-4.5 INHALER 6 GM INH SCH ×2 (08:26→20:35)
[2019-05-04] MEDS: NICOTINE 14 MG/24 HR PATCH TRANSDERM SCH (08:26)
[2019-05-04] MEDS ORDERED: METOPROLOL TARTRATE 25 MG TABLET PO ONE (09:36)
[2019-05-04] MEDS: METOPROLOL TARTRATE 50 MG TABLET PO SCH ×2 (09:37→20:34)
[2019-05-04] MEDS: POLYETHYLENE GLYCOL POWDER 17 GM PACK PO SCH (17:08)
[2019-05-04] MEDS: ATORVASTATIN 40 MG TABLET PO SCH (20:34)
[2019-05-04] MEDS: PANTOPRAZOLE 40 MG TABLET PO SCH (20:34)
[2019-05-04] MEDS: traZODone 50 MG TABLET PO SCH (20:34)
[2019-05-05] MEDS: PIPERACILLIN/TAZOBACTAM 3,375 MG in SODIUM CHLORIDE 0.9% 100 ML IV SCH (00:24)
[2019-05-05] MEDS: ALBUTEROL/IPRATROPIUM 3 ML NEB RESP TX SCH ×3 (00:33→13:30)
[2019-05-05] MEDS: methylPREDNISolone SOD SUC 40 MG/1 ML VIAL IV SCH (03:58)
[2019-05-05] MEDS: INSULIN REGULAR 100 UNIT/ML SUBCUT SCH ×2 (09:56→13:38)
[2019-05-05] MEDS: INSULIN GLARGINE 100 UNIT/ML SUBCUT SCH (09:58)
[2019-05-05] MEDS: THEOPHYLLINE ER 300 MG TABLET PO SCH (09:59)
[2019-05-05] MEDS: PARoxetine 10 MG TABLET PO SCH (09:59)
[2019-05-05] MEDS: ISOSORBIDE MONONITRATE 60 MG TABLET PO SCH (09:59)
[2019-05-05] MEDS: ASPIRIN CHEW 81 MG TABLET PO SCH (10:00)
[2019-05-05] MEDS: METOPROLOL TARTRATE 50 MG TABLET PO SCH (10:00)
[2019-05-05] MEDS: CALCITRIOL 0.5 MCG CAPSULE PO SCH (10:01)
[2019-05-05] MEDS: SEVELAMER CARBONATE 800 MG TABLET PO SCH (10:01)
[2019-05-05] MEDS: levETIRAcetam 250 MG TABLET PO SCH (10:01)
[2019-05-05] MEDS: BISACODYL 5 MG TABLET PO SCH (10:01)
[2019-05-05] MEDS: NICOTINE 14 MG/24 HR PATCH TRANSDERM SCH (10:05)
[2019-05-05 11:33] VITALS: BP 169/75
== END 2019-05-05 15:33 | DRG 640 ==
LOC: EDBD → EDUNIT# → N.ED 10:41 → N.EDINP 13:24 → N.ICU 13:37 → N.TELES 04-30 16:40
PROVIDERS: ADMIT Internal Medicine; ATTEND Internal Medicine

== ENCOUNTER 2019-09-19 01:44 | Inpatient (IN) ==
[2019-09-19] MEDS ORDERED: methylPREDNISolone SOD SUC 40 MG/1 ML VIAL IV STA (02:17)
[2019-09-19] MEDS ORDERED: ALBUTEROL/IPRATROPIUM 3 ML NEB RESP TX STA (02:17)
[2019-09-19 02:22] LABS: Basophils % 0.1 % (0.0-0.8); Eosinophils # 0.1 10*3/uL (0.0-0.87); Eosinophils % 1.4 % (0.00-10.9); Hemoglobin 7.3 GM/DL (12.0-16.0); Immature Granulocytes % 0.3 %; Immature Granulocytes Absolute 0.03 #; Lymphocytes # 0.4 10*3/uL (1.4-4.0); Lymphocytes % 4.5 % (21.3-54.2); Mean Corpuscular HGB Conc 30.4 GM/DL (32-36); Mean Corpuscular Volume 93.4 FL (87-102); Mean Platelet Volume 11.1 FL (9.6-12.0); Neutrophils % 77.7 % (38.7-73.9); Platelet Count 136 T/CUMM (130-400); Red Blood Count 2.57 MC/CUMM (3.8-5.5); Red Cell Distribution Width 19.7 % (9.3-17.3); White Blood Count 8.8 T/CUMM (4-12)
[2019-09-19] MEDS ORDERED: LEVOFLOXACIN INJ 500 MG in PREMIX 1 EACH IV STA (02:38)
[2019-09-19 02:49] LABS: Bilirubin,Total 0.5 MG/DL (0.2-1.0); Calcium 8.3 MG/DL (8.5-10.1); Osmolality,Calculated 283.4 MOS/KG (273-304); Total Protein 6.7 G/DL (6.4-8.3)
[2019-09-19 02:54] LABS: Eosinophils 3 % (0-10); Lymphocytes 5 % (20-55); Segmented Neutrophils 73 % (50-85); Total Cells Counted 100
[2019-09-19 02:55] LABS: Hypochromasia 2+; Microcytosis 1+; Ovalocytes 1+; Platelet Estimate Normal
[2019-09-19] MEDS ORDERED: ONDANSETRON 4 MG/2 ML VIAL IV PRN (03:58)
[2019-09-19] MEDS: BUDESONIDE 0.25 MG/2 ML NEB RESP TX SCH ×2 (08:01→19:40)
[2019-09-19] MEDS: cefTRIAXone 500 MG in SYRINGE 1 EACH IV SCH (08:39)
[2019-09-19] MEDS: PANTOPRAZOLE 40 MG TABLET PO SCH (08:40)
[2019-09-19] MEDS: AZITHROMYCIN INJ 250 MG in SODIUM CHLORIDE 0.9% 250 ML IV SCH (08:40)
[2019-09-19] MEDS: methylPREDNISolone SOD SUC 40 MG/1 ML VIAL IV SCH ×2 (08:40→16:15)
[2019-09-19] MEDS: ACETAMINOPHEN 325 MG TABLET PO PRN (09:32)
[2019-09-19] MEDS: ALBUTEROL/IPRATROPIUM 3 ML NEB RESP TX SCH ×2 (12:59→19:40)
[2019-09-19] MEDS: METOPROLOL TARTRATE 25 MG TABLET PO SCH ×2 (16:29→21:16)
[2019-09-19] MEDS ORDERED: GLUCAGON 1 MG VIAL IM PRN ×2 (16:51→16:52)
[2019-09-19] MEDS ORDERED: DEXTROSE 10% 250 ML BAG IV PRN (16:51)
[2019-09-19] MEDS ORDERED: DEXTROSE 50% 25 GM/50 ML VIAL IV PRN (16:52)
[2019-09-19] MEDS ORDERED: BENZONATATE 100 MG CAPSULE PO PRN (17:28)
[2019-09-19] MEDS: INSULIN REGULAR 100 UNIT/ML SUBCUT SCH ×2 (17:48→21:17)
[2019-09-19] MEDS ORDERED: BUDESONIDE/FORMOTEROL 160-4.5 INHALER 6 GM INH SCH (21:00)
[2019-09-19] MEDS: ATORVASTATIN 40 MG TABLET PO SCH (21:16)
[2019-09-19] MEDS: traZODone 50 MG TABLET PO SCH (21:16)
[2019-09-19] MEDS: levETIRAcetam 250 MG TABLET PO SCH (21:16)
[2019-09-20] MEDS: ALBUTEROL/IPRATROPIUM 3 ML NEB RESP TX SCH ×4 (00:40→19:20)
[2019-09-20] MEDS: methylPREDNISolone SOD SUC 40 MG/1 ML VIAL IV SCH ×3 (01:00→17:29)
[2019-09-20 05:17] LABS: Basophils % 0.1 % (0.0-0.8); Eosinophils % 0.1 % (0.00-10.9); Hematocrit 22.3 VOL% (35.7-47.0); Hemoglobin 6.8 GM/DL (12.0-16.0); Immature Granulocytes % 0.8 %; Immature Granulocytes Absolute 0.07 #; Lymphocytes # 0.4 10*3/uL (1.4-4.0); Mean Corpuscular HGB Conc 30.5 GM/DL (32-36); Mean Corpuscular Volume 91.8 FL (87-102); Mean Platelet Volume 11.6 FL (9.6-12.0); Monocytes % 13.7 % (1.7-12.7); Neutrophils % 80.3 % (38.7-73.9); Platelet Count 127 T/CUMM (130-400); Red Blood Count 2.43 MC/CUMM (3.8-5.5); Red Cell Distribution Width 19.2 % (9.3-17.3); White Blood Count 8.3 T/CUMM (4-12)
[2019-09-20 05:42] LABS: Calcium 8.6 MG/DL (8.5-10.1); Osmolality,Calculated 287.2 MOS/KG (273-304)
[2019-09-20] MEDS: BUDESONIDE 0.25 MG/2 ML NEB RESP TX SCH ×2 (07:25→19:20)
[2019-09-20] MEDS: INSULIN GLARGINE 100 UNIT/ML SUBCUT SCH (08:36)
[2019-09-20] MEDS: levETIRAcetam 250 MG TABLET PO SCH ×2 (08:36→22:02)
[2019-09-20] MEDS: PANTOPRAZOLE 40 MG TABLET PO SCH (08:36)
[2019-09-20] MEDS: ASPIRIN CHEW 81 MG TABLET PO SCH (08:36)
[2019-09-20] MEDS: SEVELAMER CARBONATE 800 MG TABLET PO SCH ×3 (08:36→17:29)
[2019-09-20] MEDS: PARoxetine 10 MG TABLET PO SCH (08:36)
[2019-09-20] MEDS: THEOPHYLLINE ER 300 MG TABLET PO SCH (08:36)
[2019-09-20] MEDS: INSULIN REGULAR 100 UNIT/ML SUBCUT SCH ×4 (08:37→22:02)
[2019-09-20] MEDS: METOPROLOL TARTRATE 25 MG TABLET PO SCH ×2 (15:45→22:01)
[2019-09-20] MEDS: ISOSORBIDE MONONITRATE 60 MG TABLET PO SCH (15:45)
[2019-09-20] MEDS: AZITHROMYCIN INJ 250 MG in SODIUM CHLORIDE 0.9% 250 ML IV SCH (16:21)
[2019-09-20] MEDS: cefTRIAXone 500 MG in SYRINGE 1 EACH IV SCH (16:22)
[2019-09-20] MEDS ORDERED: SODIUM CHLORIDE 0.9% 1,000 ML IV PRN (17:00)
[2019-09-20] MEDS: traZODone 50 MG TABLET PO SCH (22:02)
[2019-09-20] MEDS: ATORVASTATIN 40 MG TABLET PO SCH (22:02)
[2019-09-20] MEDS: BENZONATATE 100 MG CAPSULE PO SCH (22:02)
[2019-09-21] MEDS: ALBUTEROL/IPRATROPIUM 3 ML NEB RESP TX SCH ×4 (00:34→19:53)
[2019-09-21] MEDS: methylPREDNISolone SOD SUC 40 MG/1 ML VIAL IV SCH ×3 (01:11→16:55)
[2019-09-21 03:07] LABS: Basophils % 0.1 % (0.0-0.8); Eosinophils % 0.3 % (0.00-10.9); Hematocrit 25.1 VOL% (35.7-47.0); Hemoglobin 7.7 GM/DL (12.0-16.0); Immature Granulocytes % 0.9 %; Immature Granulocytes Absolute 0.09 #; Lymphocytes # 0.3 10*3/uL (1.4-4.0); Lymphocytes % 3.5 % (21.3-54.2); Mean Corpuscular HGB Conc 30.7 GM/DL (32-36); Mean Corpuscular Volume 89.6 FL (87-102); Mean Platelet Volume 10.8 FL (9.6-12.0); Monocytes % 6.8 % (1.7-12.7); Neutrophils % 88.4 % (38.7-73.9); Platelet Count 137 T/CUMM (130-400); Red Cell Distribution Width 21.1 % (9.3-17.3); White Blood Count 9.7 T/CUMM (4-12)
[2019-09-21 03:20] LABS: Calcium 8.5 MG/DL (8.5-10.1); Osmolality,Calculated 287.4 MOS/KG (273-304)
[2019-09-21 03:32] LABS: Lymphocytes 9 % (20-55); Platelet Estimate Decreased; Segmented Neutrophils 88 % (50-85); Total Cells Counted 100
[2019-09-21] MEDS ORDERED: LEVOFLOXACIN INJ 500 MG in PREMIX 1 EACH IV SCH (04:00)
[2019-09-21] MEDS: BUDESONIDE 0.25 MG/2 ML NEB RESP TX SCH ×2 (07:23→19:53)
[2019-09-21] MEDS: INSULIN REGULAR 100 UNIT/ML SUBCUT SCH ×4 (10:18→21:29)
[2019-09-21] MEDS: INSULIN GLARGINE 100 UNIT/ML SUBCUT SCH (10:18)
[2019-09-21] MEDS: PARoxetine 10 MG TABLET PO SCH (10:20)
[2019-09-21] MEDS: BENZONATATE 100 MG CAPSULE PO SCH ×3 (10:20→20:15)
[2019-09-21] MEDS: SEVELAMER CARBONATE 800 MG TABLET PO SCH ×3 (10:20→16:45)
[2019-09-21] MEDS: levETIRAcetam 250 MG TABLET PO SCH ×2 (10:20→20:15)
[2019-09-21] MEDS: PANTOPRAZOLE 40 MG TABLET PO SCH (10:20)
[2019-09-21] MEDS: ASPIRIN CHEW 81 MG TABLET PO SCH (10:20)
[2019-09-21] MEDS: THEOPHYLLINE ER 300 MG TABLET PO SCH (10:21)
[2019-09-21] MEDS: ISOSORBIDE MONONITRATE 60 MG TABLET PO SCH (10:21)
[2019-09-21] MEDS: METOPROLOL TARTRATE 25 MG TABLET PO SCH ×2 (10:21→20:16)
[2019-09-21] MEDS: cefTRIAXone 500 MG in SYRINGE 1 EACH IV SCH (10:30)
[2019-09-21] MEDS: AZITHROMYCIN INJ 250 MG in SODIUM CHLORIDE 0.9% 250 ML IV SCH (10:36)
[2019-09-21] MEDS: ACETAMINOPHEN 325 MG TABLET PO PRN (20:15)
[2019-09-21] MEDS: ATORVASTATIN 40 MG TABLET PO SCH (20:15)
[2019-09-21] MEDS: traZODone 50 MG TABLET PO SCH (20:16)
[2019-09-21] MEDS: DEXTROMETHORPHAN ER 6 MG/ML 90 ML/BOTTLE PO SCH (22:37)
[2019-09-22] MEDS: methylPREDNISolone SOD SUC 40 MG/1 ML VIAL IV SCH ×3 (00:35→16:10)
[2019-09-22] MEDS: ALBUTEROL/IPRATROPIUM 3 ML NEB RESP TX SCH ×4 (01:05→19:20)
[2019-09-22 06:40] LABS: Calcium 9.4 MG/DL (8.5-10.1); Osmolality,Calculated 288.2 MOS/KG (273-304)
[2019-09-22] MEDS: BUDESONIDE 0.25 MG/2 ML NEB RESP TX SCH ×2 (07:05→19:20)
[2019-09-22] MEDS: SEVELAMER CARBONATE 800 MG TABLET PO SCH ×3 (08:44→16:09)
[2019-09-22] MEDS: BENZONATATE 100 MG CAPSULE PO SCH ×3 (08:44→20:35)
[2019-09-22] MEDS: ASPIRIN CHEW 81 MG TABLET PO SCH (08:44)
[2019-09-22] MEDS: INSULIN GLARGINE 100 UNIT/ML SUBCUT SCH (08:44)
[2019-09-22] MEDS: INSULIN REGULAR 100 UNIT/ML SUBCUT SCH ×4 (08:45→21:35)
[2019-09-22] MEDS: THEOPHYLLINE ER 300 MG TABLET PO SCH (08:48)
[2019-09-22] MEDS: levETIRAcetam 250 MG TABLET PO SCH ×2 (08:48→20:35)
[2019-09-22] MEDS: cefTRIAXone 500 MG in SYRINGE 1 EACH IV SCH (08:48)
[2019-09-22] MEDS: ISOSORBIDE MONONITRATE 60 MG TABLET PO SCH (11:17)
[2019-09-22] MEDS: METOPROLOL TARTRATE 25 MG TABLET PO SCH ×2 (11:18→20:35)
[2019-09-22] MEDS: PANTOPRAZOLE 40 MG TABLET PO SCH (11:19)
[2019-09-22] MEDS: AZITHROMYCIN INJ 250 MG in SODIUM CHLORIDE 0.9% 250 ML IV SCH (14:33)
[2019-09-22] MEDS: PARoxetine 10 MG TABLET PO SCH (14:34)
[2019-09-22 17:20] LABS: Basophils % 0.2 % (0.0-0.8); Eosinophils % 0.1 % (0.00-10.9); Hematocrit 34.9 VOL% (35.7-47.0); Hemoglobin 10.8 GM/DL (12.0-16.0); Immature Granulocytes % 2.3 %; Immature Granulocytes Absolute 0.35 #; Lymphocytes # 0.4 10*3/uL (1.4-4.0); Lymphocytes % 2.6 % (21.3-54.2); Mean Corpuscular HGB Conc 30.9 GM/DL (32-36); Mean Corpuscular Volume 90.4 FL (87-102); Mean Platelet Volume 10.6 FL (9.6-12.0); Monocytes % 8.5 % (1.7-12.7); Neutrophils % 86.3 % (38.7-73.9); Platelet Count 209 T/CUMM (130-400); Red Blood Count 3.86 MC/CUMM (3.8-5.5); Red Cell Distribution Width 19.6 % (9.3-17.3); White Blood Count 15.2 T/CUMM (4-12)
[2019-09-22 17:52] LABS: Lymphocytes 1 % (20-55); Platelet Estimate Adequate; Segmented Neutrophils 93 % (50-85); Total Cells Counted 100
[2019-09-22 17:53] LABS: Hypochromasia Slight
[2019-09-22] MEDS: traZODone 50 MG TABLET PO SCH (20:35)
[2019-09-22] MEDS: ATORVASTATIN 40 MG TABLET PO SCH (20:35)
[2019-09-22] MEDS: DEXTROMETHORPHAN ER 6 MG/ML 90 ML/BOTTLE PO SCH (20:36)
[2019-09-23] MEDS: methylPREDNISolone SOD SUC 40 MG/1 ML VIAL IV SCH ×4 (00:45→21:29)
[2019-09-23] MEDS: ALBUTEROL/IPRATROPIUM 3 ML NEB RESP TX SCH ×4 (01:15→19:25)
[2019-09-23 05:58] LABS: Basophils % 0.1 % (0.0-0.8); Hematocrit 32.9 VOL% (35.7-47.0); Hemoglobin 10.1 GM/DL (12.0-16.0); Immature Granulocytes % 2.1 %; Immature Granulocytes Absolute 0.23 #; Lymphocytes # 0.1 10*3/uL (1.4-4.0); Lymphocytes % 1.3 % (21.3-54.2); Mean Corpuscular HGB Conc 30.7 GM/DL (32-36); Mean Corpuscular Volume 89.9 FL (87-102); Monocytes % 3.5 % (1.7-12.7); Platelet Count 186 T/CUMM (130-400); Red Blood Count 3.66 MC/CUMM (3.8-5.5); Red Cell Distribution Width 19.2 % (9.3-17.3)
[2019-09-23 06:14] LABS: Calcium 9.3 MG/DL (8.5-10.1); Osmolality,Calculated 281.5 MOS/KG (273-304)
[2019-09-23 06:21] LABS: Anisocytosis 1+; Band Neutrophils 2 % (0-10); Basophilic Stippling Slight; Lymphocytes 1 % (20-55); Macrocytosis 1+; Platelet Estimate Normal; Segmented Neutrophils 96 % (50-85); Total Cells Counted 100
[2019-09-23 06:22] LABS: Poikilocytosis Slight
[2019-09-23] MEDS: BUDESONIDE 0.25 MG/2 ML NEB RESP TX SCH ×2 (08:16→19:25)
[2019-09-23] MEDS: cefTRIAXone 500 MG in SYRINGE 1 EACH IV SCH (09:05)
[2019-09-23] MEDS: AZITHROMYCIN INJ 250 MG in SODIUM CHLORIDE 0.9% 250 ML IV SCH (09:05)
[2019-09-23] MEDS: ISOSORBIDE MONONITRATE 60 MG TABLET PO SCH (09:20)
[2019-09-23] MEDS: ASPIRIN CHEW 81 MG TABLET PO SCH (09:20)
[2019-09-23] MEDS: SEVELAMER CARBONATE 800 MG TABLET PO SCH ×3 (09:21→15:59)
[2019-09-23] MEDS: levETIRAcetam 250 MG TABLET PO SCH ×2 (09:21→21:28)
[2019-09-23] MEDS: BENZONATATE 100 MG CAPSULE PO SCH ×3 (09:21→21:28)
[2019-09-23] MEDS: THEOPHYLLINE ER 300 MG TABLET PO SCH (09:21)
[2019-09-23] MEDS: INSULIN GLARGINE 100 UNIT/ML SUBCUT SCH (09:21)
[2019-09-23] MEDS: PANTOPRAZOLE 40 MG TABLET PO SCH (09:21)
[2019-09-23] MEDS: INSULIN REGULAR 100 UNIT/ML SUBCUT SCH ×4 (09:22→21:35)
[2019-09-23] MEDS ORDERED: FUROSEMIDE 40 MG/4 ML VIAL IV STA (13:14)
[2019-09-23] MEDS: METOPROLOL TARTRATE 25 MG TABLET PO SCH ×2 (14:17→21:35)
[2019-09-23] MEDS: PARoxetine 10 MG TABLET PO SCH (14:17)
[2019-09-23] MEDS: DEXTROMETHORPHAN ER 6 MG/ML 90 ML/BOTTLE PO SCH (21:27)
[2019-09-23] MEDS: traZODone 50 MG TABLET PO SCH (21:27)
[2019-09-23] MEDS: ATORVASTATIN 40 MG TABLET PO SCH (21:35)
[2019-09-24] MEDS: ALBUTEROL/IPRATROPIUM 3 ML NEB RESP TX SCH ×4 (00:49→20:43)
[2019-09-24 05:05] LABS: Basophils % 0.2 % (0.0-0.8); Hematocrit 34.6 VOL% (35.7-47.0); Hemoglobin 10.7 GM/DL (12.0-16.0); Immature Granulocytes % 2.4 %; Immature Granulocytes Absolute 0.32 #; Lymphocytes # 0.2 10*3/uL (1.4-4.0); Lymphocytes % 1.2 % (21.3-54.2); Mean Corpuscular HGB Conc 30.9 GM/DL (32-36); Mean Corpuscular Volume 89.4 FL (87-102); Mean Platelet Volume 11.1 FL (9.6-12.0); Monocytes % 3.4 % (1.7-12.7); Neutrophils % 92.8 % (38.7-73.9); Platelet Count 252 T/CUMM (130-400); Red Blood Count 3.87 MC/CUMM (3.8-5.5); Red Cell Distribution Width 18.9 % (9.3-17.3); White Blood Count 13.4 T/CUMM (4-12)
[2019-09-24 05:26] LABS: Calcium 9.6 MG/DL (8.5-10.1); Osmolality,Calculated 285.8 MOS/KG (273-304)
[2019-09-24 05:33] LABS: Lymphocytes 5 % (20-55); Platelet Estimate Normal; Segmented Neutrophils 90 % (50-85); Total Cells Counted 100
[2019-09-24 05:34] LABS: Anisocytosis 1+; Hypochromasia Slight; Microcytosis Slight
[2019-09-24 05:35] LABS: Ovalocytes Slight; Schistocytes Few; Target Cells Few
[2019-09-24] MEDS: methylPREDNISolone SOD SUC 40 MG/1 ML VIAL IV SCH ×3 (06:35→23:25)
[2019-09-24] MEDS: BUDESONIDE 0.25 MG/2 ML NEB RESP TX SCH ×2 (07:00→20:43)
[2019-09-24] MEDS: INSULIN GLARGINE 100 UNIT/ML SUBCUT SCH (08:40)
[2019-09-24] MEDS: cefTRIAXone 500 MG in SYRINGE 1 EACH IV SCH (08:40)
[2019-09-24] MEDS: INSULIN REGULAR 100 UNIT/ML SUBCUT SCH ×4 (08:40→20:20)
[2019-09-24] MEDS: ISOSORBIDE MONONITRATE 60 MG TABLET PO SCH (08:41)
[2019-09-24] MEDS: METOPROLOL TARTRATE 25 MG TABLET PO SCH ×2 (08:41→20:20)
[2019-09-24] MEDS: ASPIRIN CHEW 81 MG TABLET PO SCH (08:41)
[2019-09-24] MEDS: PANTOPRAZOLE 40 MG TABLET PO SCH (08:41)
[2019-09-24] MEDS: BENZONATATE 100 MG CAPSULE PO SCH ×3 (08:41→20:20)
[2019-09-24] MEDS: SEVELAMER CARBONATE 800 MG TABLET PO SCH ×3 (08:41→18:52)
[2019-09-24] MEDS: THEOPHYLLINE ER 300 MG TABLET PO SCH (08:41)
[2019-09-24] MEDS: PARoxetine 10 MG TABLET PO SCH (08:41)
[2019-09-24] MEDS: levETIRAcetam 250 MG TABLET PO SCH ×2 (08:47→20:20)
[2019-09-24] MEDS: AZITHROMYCIN INJ 250 MG in SODIUM CHLORIDE 0.9% 250 ML IV SCH (09:46)
[2019-09-24] MEDS ORDERED: FUROSEMIDE 40 MG/4 ML VIAL IV ONE (14:09)
[2019-09-24] MEDS: ACETAMINOPHEN 325 MG TABLET PO PRN (14:23)
[2019-09-24] MEDS: traZODone 50 MG TABLET PO SCH (20:19)
[2019-09-24] MEDS: DEXTROMETHORPHAN ER 6 MG/ML 90 ML/BOTTLE PO SCH (20:19)
[2019-09-24] MEDS: ATORVASTATIN 40 MG TABLET PO SCH (20:20)
[2019-09-25] MEDS: ALBUTEROL/IPRATROPIUM 3 ML NEB RESP TX SCH ×4 (02:44→19:08)
[2019-09-25] MEDS: methylPREDNISolone SOD SUC 40 MG/1 ML VIAL IV SCH ×3 (06:05→23:30)
[2019-09-25 06:39] LABS: Basophils % 0.1 % (0.0-0.8); Hematocrit 34.4 VOL% (35.7-47.0); Hemoglobin 10.7 GM/DL (12.0-16.0); Immature Granulocytes % 1.8 %; Immature Granulocytes Absolute 0.28 #; Lymphocytes # 0.2 10*3/uL (1.4-4.0); Lymphocytes % 1.1 % (21.3-54.2); Mean Corpuscular HGB Conc 31.1 GM/DL (32-36); Mean Corpuscular Volume 90.5 FL (87-102); Mean Platelet Volume 11.4 FL (9.6-12.0); Monocytes % 3.6 % (1.7-12.7); Neutrophils % 93.4 % (38.7-73.9); Platelet Count 270 T/CUMM (130-400); Red Cell Distribution Width 18.7 % (9.3-17.3); White Blood Count 15.4 T/CUMM (4-12)
[2019-09-25 06:44] LABS: Calcium 9.6 MG/DL (8.5-10.1); Osmolality,Calculated 285.9 MOS/KG (273-304)
[2019-09-25 07:04] LABS: Anisocytosis 1+; Band Neutrophils 1 % (0-10); Hypochromasia 1+; Lymphocytes 3 % (20-55); Microcytosis 1+; Ovalocytes Few; Segmented Neutrophils 88 % (50-85); Total Cells Counted 100
[2019-09-25 07:05] LABS: Platelet Estimate Normal
[2019-09-25] MEDS: BUDESONIDE 0.25 MG/2 ML NEB RESP TX SCH ×2 (08:03→19:08)
[2019-09-25] MEDS: PARoxetine 10 MG TABLET PO SCH (09:48)
[2019-09-25] MEDS: METOPROLOL TARTRATE 25 MG TABLET PO SCH ×2 (09:48→20:04)
[2019-09-25] MEDS: levETIRAcetam 250 MG TABLET PO SCH ×2 (09:49→20:04)
[2019-09-25] MEDS: PANTOPRAZOLE 40 MG TABLET PO SCH (09:49)
[2019-09-25] MEDS: THEOPHYLLINE ER 300 MG TABLET PO SCH (09:49)
[2019-09-25] MEDS: BENZONATATE 100 MG CAPSULE PO SCH ×3 (09:49→20:04)
[2019-09-25] MEDS: ISOSORBIDE MONONITRATE 60 MG TABLET PO SCH (09:49)
[2019-09-25] MEDS: SEVELAMER CARBONATE 800 MG TABLET PO SCH ×3 (09:49→16:14)
[2019-09-25] MEDS: ASPIRIN CHEW 81 MG TABLET PO SCH (09:49)
[2019-09-25] MEDS: INSULIN REGULAR 100 UNIT/ML SUBCUT SCH ×4 (10:26→20:05)
[2019-09-25] MEDS: INSULIN GLARGINE 100 UNIT/ML SUBCUT SCH (12:46)
[2019-09-25] MEDS: cefTRIAXone 500 MG in SYRINGE 1 EACH IV SCH (12:47)
[2019-09-25] MEDS: AZITHROMYCIN INJ 250 MG in SODIUM CHLORIDE 0.9% 250 ML IV SCH (12:49)
[2019-09-25] MEDS: ACETAMINOPHEN 325 MG TABLET PO PRN (16:11)
[2019-09-25] MEDS: DEXTROMETHORPHAN ER 6 MG/ML 90 ML/BOTTLE PO SCH (20:04)
[2019-09-25] MEDS: traZODone 50 MG TABLET PO SCH (20:04)
[2019-09-25] MEDS: ATORVASTATIN 40 MG TABLET PO SCH (20:05)
[2019-09-25] MEDS: BENZOCAINE/MENTHOL LOZENGE 18/BOX PO PRN (23:30)
[2019-09-26] MEDS: ALBUTEROL/IPRATROPIUM 3 ML NEB RESP TX SCH ×4 (00:21→20:25)
[2019-09-26 05:45] LABS: Basophils % 0.2 % (0.0-0.8); Eosinophils % 0.1 % (0.00-10.9); Hematocrit 36.4 VOL% (35.7-47.0); Hemoglobin 11.2 GM/DL (12.0-16.0); Immature Granulocytes % 1.5 %; Immature Granulocytes Absolute 0.21 #; Lymphocytes # 0.6 10*3/uL (1.4-4.0); Lymphocytes % 4.4 % (21.3-54.2); Mean Corpuscular HGB Conc 30.8 GM/DL (32-36); Mean Corpuscular Volume 90.8 FL (87-102); Mean Platelet Volume 10.9 FL (9.6-12.0); Monocytes % 11.8 % (1.7-12.7); Platelet Count 263 T/CUMM (130-400); Red Blood Count 4.01 MC/CUMM (3.8-5.5); Red Cell Distribution Width 18.6 % (9.3-17.3); White Blood Count 13.9 T/CUMM (4-12)
[2019-09-26 05:59] LABS: Albumin 3.1 G/DL (3.4-5.0); Bilirubin,Total 0.6 MG/DL (0.2-1.0); Calcium 9.6 MG/DL (8.5-10.1); Osmolality,Calculated 285.2 MOS/KG (273-304); Total Protein 6.5 G/DL (6.4-8.3)
[2019-09-26 06:06] LABS: Eosinophils 1 % (0-10); Hypochromasia 1+; Lymphocytes 4 % (20-55); Microcytosis 1+; Ovalocytes Slight; Platelet Estimate Adequate; Segmented Neutrophils 90 % (50-85); Total Cells Counted 100
[2019-09-26] MEDS: BUDESONIDE 0.25 MG/2 ML NEB RESP TX SCH ×2 (07:22→20:25)
[2019-09-26] MEDS ORDERED: cloNIDine 0.2 MG/24 HR PATCH TRANSDERM SCH (09:00)
[2019-09-26] MEDS: cefTRIAXone 500 MG in SYRINGE 1 EACH IV SCH (09:00)
[2019-09-26] MEDS: methylPREDNISolone SOD SUC 40 MG/1 ML VIAL IV SCH ×2 (09:01→20:20)
[2019-09-26] MEDS: PARoxetine 10 MG TABLET PO SCH (09:02)
[2019-09-26] MEDS: THEOPHYLLINE ER 300 MG TABLET PO SCH (09:03)
[2019-09-26] MEDS: ASPIRIN CHEW 81 MG TABLET PO SCH (09:03)
[2019-09-26] MEDS: ISOSORBIDE MONONITRATE 60 MG TABLET PO SCH (09:03)
[2019-09-26] MEDS: levETIRAcetam 250 MG TABLET PO SCH ×2 (09:03→20:17)
[2019-09-26] MEDS: PANTOPRAZOLE 40 MG TABLET PO SCH (09:03)
[2019-09-26] MEDS: BENZONATATE 100 MG CAPSULE PO SCH ×3 (09:04→20:18)
[2019-09-26] MEDS: INSULIN GLARGINE 100 UNIT/ML SUBCUT SCH (09:04)
[2019-09-26] MEDS: SEVELAMER CARBONATE 800 MG TABLET PO SCH ×3 (09:04→17:17)
[2019-09-26] MEDS: INSULIN REGULAR 100 UNIT/ML SUBCUT SCH ×4 (09:17→20:17)
[2019-09-26] MEDS: METOPROLOL TARTRATE 25 MG TABLET PO SCH ×2 (09:17→20:18)
[2019-09-26] MEDS: DEXTROMETHORPHAN ER 6 MG/ML 90 ML/BOTTLE PO SCH (20:16)
[2019-09-26] MEDS: BENZOCAINE/MENTHOL LOZENGE 18/BOX PO PRN (20:16)
[2019-09-26] MEDS: traZODone 50 MG TABLET PO SCH (20:17)
[2019-09-26] MEDS: ATORVASTATIN 40 MG TABLET PO SCH (20:18)
[2019-09-27] MEDS: ALBUTEROL/IPRATROPIUM 3 ML NEB RESP TX SCH ×3 (00:51→13:03)
[2019-09-27] MEDS: BUDESONIDE 0.25 MG/2 ML NEB RESP TX SCH (07:12)
[2019-09-27 08:44] LABS: Basophils % 0.1 % (0.0-0.8); Eosinophils % 0.3 % (0.00-10.9); Hematocrit 33.7 VOL% (35.7-47.0); Hemoglobin 10.5 GM/DL (12.0-16.0); Immature Granulocytes % 1.4 %; Immature Granulocytes Absolute 0.21 #; Lymphocytes # 0.5 10*3/uL (1.4-4.0); Lymphocytes % 3.3 % (21.3-54.2); Mean Corpuscular HGB Conc 31.2 GM/DL (32-36); Mean Corpuscular Volume 89.6 FL (87-102); Mean Platelet Volume 10.7 FL (9.6-12.0); Monocytes % 9.2 % (1.7-12.7); Neutrophils % 85.7 % (38.7-73.9); Platelet Count 250 T/CUMM (130-400); Red Blood Count 3.76 MC/CUMM (3.8-5.5); Red Cell Distribution Width 18.6 % (9.3-17.3); White Blood Count 15.1 T/CUMM (4-12)
[2019-09-27 09:03] LABS: Lymphocytes 2 % (20-55); Segmented Neutrophils 94 % (50-85); Total Cells Counted 100
[2019-09-27 09:04] LABS: Hypochromasia 1+; Platelet Estimate Adequate
[2019-09-27 09:05] LABS: Microcytosis 1+
[2019-09-27] MEDS: METOPROLOL TARTRATE 25 MG TABLET PO SCH (11:12)
[2019-09-27] MEDS: ISOSORBIDE MONONITRATE 60 MG TABLET PO SCH (11:12)
[2019-09-27] MEDS: INSULIN REGULAR 100 UNIT/ML SUBCUT SCH ×3 (11:50→17:41)
[2019-09-27] MEDS: BENZONATATE 100 MG CAPSULE PO SCH ×2 (12:59→16:16)
[2019-09-27] MEDS: SEVELAMER CARBONATE 800 MG TABLET PO SCH ×3 (12:59→16:16)
[2019-09-27] MEDS: methylPREDNISolone SOD SUC 40 MG/1 ML VIAL IV SCH (13:19)
[2019-09-27] MEDS: cefTRIAXone 500 MG in SYRINGE 1 EACH IV SCH (13:20)
[2019-09-27] MEDS: INSULIN GLARGINE 100 UNIT/ML SUBCUT SCH (13:20)
[2019-09-27] MEDS: ASPIRIN CHEW 81 MG TABLET PO SCH (13:20)
[2019-09-27] MEDS: levETIRAcetam 250 MG TABLET PO SCH (13:21)
[2019-09-27] MEDS: THEOPHYLLINE ER 300 MG TABLET PO SCH (13:21)
[2019-09-27] MEDS: PANTOPRAZOLE 40 MG TABLET PO SCH (13:21)
[2019-09-27] MEDS: PARoxetine 10 MG TABLET PO SCH (13:21)
[2019-09-27 19:21] VITALS: BP 147/69
== END 2019-09-27 19:30 | DRG 193 ==
LOC: EDUNIT# → EDBD → N.ED 01:44 → N.EDINP 03:57 → N.5E 04:23
PROVIDERS: ADMIT Internal Medicine; ATTEND Internal Medicine

== ENCOUNTER 2020-01-03 19:08 | Inpatient (IN) ==
[2020-01-03] MEDS ORDERED: hydrALAZINE 20 MG/1 ML VIAL IV STA (20:00)
[2020-01-03 20:35] LABS: Hematocrit 26.3 VOL% (35.7-47.0); Hemoglobin 8.3 GM/DL (12.0-16.0); Immature Granulocytes % 0.2 %; Immature Granulocytes Absolute 0.01 #; Lymphocytes # 0.2 10*3/uL (1.4-4.0); Lymphocytes % 3.9 % (21.3-54.2); Mean Corpuscular HGB Conc 31.6 GM/DL (32-36); Mean Platelet Volume 11.5 FL (9.6-12.0); Monocytes % 14.3 % (1.7-12.7); Neutrophils % 81.6 % (38.7-73.9); Platelet Count 86 T/CUMM (130-400); Red Blood Count 2.89 MC/CUMM (3.8-5.5); Red Cell Distribution Width 17.4 % (9.3-17.3); White Blood Count 4.9 T/CUMM (4-12)
[2020-01-03 20:50] LABS: Alanine Aminotransferase 18 U/L (13-56); Albumin 2.9 G/DL (3.4-5.0); Alkaline Phosphatase 79 U/L (45-117); Amylase 168 U/L (25-115); Aspartate Amino Transferase 41 U/L (0-37); Bilirubin,Total < 0.39 MG/DL (0.2-1.0); Blood Urea Nitrogen 58 MG/DL (7-18); Calcium 7.9 MG/DL (8.5-10.1); Estimated Glom Filtration Rate 4 ML/MIN; Glucose 173 MG/DL (74-106); Osmolality,Calculated 274.2 MOS/KG (273-304); Total Protein 6.7 G/DL (6.4-8.3)
[2020-01-03 20:54] LABS: INR 1.1; PT Patient Result 11.9 SECS (9.8-11.9)
[2020-01-03 20:58] LABS: Platelet Estimate Decreased
[2020-01-03] MEDS ORDERED: METOPROLOL TARTRATE 5 MG/5 ML VIAL IV STA (21:06)
[2020-01-03] MEDS ORDERED: PIPERACILLIN/TAZOBACTAM 3,375 MG in SODIUM CHLORIDE 0.9% 100 ML IV STA (21:09)
[2020-01-03] MEDS ORDERED: AZITHROMYCIN INJ 500 MG in SODIUM CHLORIDE 0.9% 250 ML IV STA (21:13)
[2020-01-03] MEDS ORDERED: ACETAMINOPHEN 500 MG TABLET PO STA (21:57)
[2020-01-03] MEDS ORDERED: ALBUTEROL/IPRATROPIUM 3 ML NEB RESP TX PRN (22:49)
[2020-01-03] MEDS ORDERED: ONDANSETRON 4 MG/2 ML VIAL IV PRN (22:49)
[2020-01-03] MEDS ORDERED: GLUCAGON 1 MG VIAL IM PRN (22:49)
[2020-01-03] MEDS ORDERED: DEXTROSE 10% 250 ML BAG IV PRN (22:52)
[2020-01-04] MEDS: SODIUM CHLORIDE 0.9% 1,000 ML IV SCH (00:23)
[2020-01-04] MEDS: INSULIN REGULAR 100 UNIT/ML SUBCUT SCH ×3 (00:23→12:43)
[2020-01-04] MEDS: ACETAMINOPHEN 325 MG TABLET PO PRN ×3 (02:20→21:00)
[2020-01-04 05:23] LABS: Basophils % 0.3 % (0.0-0.8); Eosinophils % 0.3 % (0.00-10.9); Hematocrit 26.6 VOL% (35.7-47.0); Hemoglobin 8.3 GM/DL (12.0-16.0); Immature Granulocytes % 0.6 %; Immature Granulocytes Absolute 0.02 #; Lymphocytes # 0.3 10*3/uL (1.4-4.0); Lymphocytes % 7.5 % (21.3-54.2); Mean Corpuscular HGB Conc 31.2 GM/DL (32-36); Mean Corpuscular Volume 93.3 FL (87-102); Mean Platelet Volume 11.9 FL (9.6-12.0); Neutrophils % 76.3 % (38.7-73.9); Platelet Count 75 T/CUMM (130-400); Red Blood Count 2.85 MC/CUMM (3.8-5.5); Red Cell Distribution Width 17.2 % (9.3-17.3); White Blood Count 3.5 T/CUMM (4-12)
[2020-01-04 05:53] LABS: Albumin 2.5 G/DL (3.4-5.0); Bilirubin,Total 0.5 MG/DL (0.2-1.0); Calcium 7.9 MG/DL (8.5-10.1); Osmolality,Calculated 275.4 MOS/KG (273-304); Risk Ratio 2.74; VLDL CHOLESTEROL 39.8 MG/DL
[2020-01-04 05:56] LABS: Band Neutrophils 1 % (0-10); Hypochromasia 1+; Lymphocytes 9 % (20-55); Ovalocytes Slight; Platelet Estimate Decreased; Segmented Neutrophils 75 % (50-85); Total Cells Counted 100
[2020-01-04 05:57] LABS: Microcytosis 1+
[2020-01-04] MEDS: PIPERACILLIN/TAZOBACTAM 2,250 MG in SODIUM CHLORIDE 0.9% 100 ML IV SCH ×2 (08:30→20:35)
[2020-01-04] MEDS: MORPHINE 4 MG/1 ML VIAL IV PRN ×2 (10:00→16:10)
[2020-01-04] MEDS: DOCUSATE SODIUM 100 MG CAPSULE PO SCH ×2 (11:01→20:59)
[2020-01-04] MEDS: PANTOPRAZOLE 40 MG TABLET PO SCH (11:02)
[2020-01-04] MEDS: AZITHROMYCIN 250 MG TABLET PO SCH (20:35)
[2020-01-04] MEDS ORDERED: AZITHROMYCIN INJ 250 MG in SODIUM CHLORIDE 0.9% 150 ML IV SCH (21:00)
[2020-01-04] MEDS ORDERED: Albuterol Sulfate [Ventolin Hfa] 2 PUFF INH PRN (21:12)
[2020-01-04] MEDS ORDERED: traZODone 50 MG TABLET PO PRN (21:46)
[2020-01-04] MEDS ORDERED: hydrALAZINE 20 MG/1 ML VIAL IV ONE (22:00)
[2020-01-04] MEDS ORDERED: POTASSIUM CHLORIDE RIDER 10 MEQ in PREMIX 1 EACH IV PRN (22:11)
[2020-01-05] MEDS: hydrALAZINE 20 MG/1 ML VIAL IV PRN (03:32)
[2020-01-05] MEDS: ACETAMINOPHEN 325 MG TABLET PO PRN (04:36)
[2020-01-05 05:11] LABS: Eosinophils % 0.2 % (0.00-10.9); Hematocrit 30.1 VOL% (35.7-47.0); Hemoglobin 9.6 GM/DL (12.0-16.0); Immature Granulocytes % 0.6 %; Immature Granulocytes Absolute 0.03 #; Lymphocytes # 0.3 10*3/uL (1.4-4.0); Lymphocytes % 6.6 % (21.3-54.2); Mean Corpuscular HGB Conc 31.9 GM/DL (32-36); Mean Corpuscular Volume 90.1 FL (87-102); Mean Platelet Volume 12.5 FL (9.6-12.0); Monocytes % 7.7 % (1.7-12.7); Neutrophils % 84.9 % (38.7-73.9); Red Blood Count 3.34 MC/CUMM (3.8-5.5); Red Cell Distribution Width 17.4 % (9.3-17.3); White Blood Count 4.8 T/CUMM (4-12)
[2020-01-05 05:19] LABS: Platelet Count 62 T/CUMM (130-400)
[2020-01-05 05:32] LABS: Calcium 7.5 MG/DL (8.5-10.1); Osmolality,Calculated 268.9 MOS/KG (273-304)
[2020-01-05 05:42] LABS: Hypochromasia 1+; Microcytosis 1+
[2020-01-05 05:43] LABS: Ovalocytes Few; Platelet Estimate Decreased; Target Cells Slight
[2020-01-05] MEDS: PARoxetine 20 MG TABLET PO SCH (11:00)
[2020-01-05] MEDS: DOCUSATE SODIUM 100 MG CAPSULE PO SCH ×2 (11:00→20:47)
[2020-01-05] MEDS: METOPROLOL TARTRATE 25 MG TABLET PO SCH ×2 (11:00→20:47)
[2020-01-05] MEDS: levETIRAcetam 500 MG TABLET PO SCH ×2 (11:00→20:48)
[2020-01-05] MEDS: THEOPHYLLINE ER 300 MG TABLET PO SCH (11:00)
[2020-01-05] MEDS: ISOSORBIDE MONONITRATE 60 MG TABLET PO SCH (11:00)
[2020-01-05] MEDS: ASPIRIN CHEW 81 MG TABLET PO SCH (11:00)
[2020-01-05] MEDS: PANTOPRAZOLE 40 MG TABLET PO SCH (11:00)
[2020-01-05] MEDS: PIPERACILLIN/TAZOBACTAM 2,250 MG in SODIUM CHLORIDE 0.9% 100 ML IV SCH ×2 (11:05→20:59)
[2020-01-05] MEDS: SEVELAMER CARBONATE 800 MG TABLET PO SCH ×3 (12:05→17:30)
[2020-01-05] MEDS: traZODone 50 MG TABLET PO SCH (20:48)
[2020-01-05] MEDS: ATORVASTATIN 40 MG TABLET PO SCH (20:48)
[2020-01-05] MEDS: AZITHROMYCIN 250 MG TABLET PO SCH (20:48)
[2020-01-05] MEDS ORDERED: HYDROXYCHLOROQUINE 200 MG TABLET PO SCH (21:00)
[2020-01-05] MEDS ORDERED: SODIUM POLYSTYRENE SULFATE 15 GM/60 ML BOTTLE PO STA (21:05)
[2020-01-05] MEDS: MORPHINE 4 MG/1 ML VIAL IV PRN (21:18)
[2020-01-06 06:23] LABS: Eosinophils % 0.2 % (0.00-10.9); Hematocrit 25.6 VOL% (35.7-47.0); Immature Granulocytes % 0.7 %; Immature Granulocytes Absolute 0.03 #; Lymphocytes # 0.3 10*3/uL (1.4-4.0); Lymphocytes % 7.5 % (21.3-54.2); Mean Corpuscular HGB Conc 31.3 GM/DL (32-36); Mean Corpuscular Volume 91.8 FL (87-102); Mean Platelet Volume 12.6 FL (9.6-12.0); Neutrophils % 84.6 % (38.7-73.9); Red Blood Count 2.79 MC/CUMM (3.8-5.5); Red Cell Distribution Width 17.8 % (9.3-17.3); White Blood Count 4.1 T/CUMM (4-12)
[2020-01-06 06:29] LABS: Platelet Count 71 T/CUMM (130-400)
[2020-01-06 06:40] LABS: Calcium 7.7 MG/DL (8.5-10.1); Osmolality,Calculated 277.5 MOS/KG (273-304)
[2020-01-06 07:01] LABS: Band Neutrophils 2 % (0-10); Hypochromasia 1+; Lymphocytes 5 % (20-55); Ovalocytes Slight; Platelet Estimate Decreased; Segmented Neutrophils 90 % (50-85); Total Cells Counted 100
[2020-01-06 07:02] LABS: Microcytosis 1+
[2020-01-06] MEDS: ASPIRIN CHEW 81 MG TABLET PO SCH (08:30)
[2020-01-06] MEDS: DOCUSATE SODIUM 100 MG CAPSULE PO SCH ×2 (08:30→20:55)
[2020-01-06] MEDS: PANTOPRAZOLE 40 MG TABLET PO SCH (08:36)
[2020-01-06] MEDS: ISOSORBIDE MONONITRATE 60 MG TABLET PO SCH (08:36)
[2020-01-06] MEDS: THEOPHYLLINE ER 300 MG TABLET PO SCH (08:36)
[2020-01-06] MEDS: SEVELAMER CARBONATE 800 MG TABLET PO SCH ×3 (08:36→17:14)
[2020-01-06] MEDS: levETIRAcetam 500 MG TABLET PO SCH ×2 (08:36→20:55)
[2020-01-06] MEDS: PARoxetine 20 MG TABLET PO SCH (08:36)
[2020-01-06] MEDS: METOPROLOL TARTRATE 25 MG TABLET PO SCH ×2 (08:36→20:56)
[2020-01-06] MEDS: PIPERACILLIN/TAZOBACTAM 2,250 MG in SODIUM CHLORIDE 0.9% 100 ML IV SCH ×2 (11:29→20:56)
[2020-01-06] MEDS: AZITHROMYCIN 250 MG TABLET PO SCH (20:55)
[2020-01-06] MEDS: traZODone 50 MG TABLET PO SCH (20:56)
[2020-01-06] MEDS: MORPHINE 4 MG/1 ML VIAL IV PRN (20:56)
[2020-01-06] MEDS: ATORVASTATIN 40 MG TABLET PO SCH (20:56)
[2020-01-07 06:55] LABS: Calcium 8.7 MG/DL (8.5-10.1); Osmolality,Calculated 283.8 MOS/KG (273-304)
[2020-01-07] MEDS: DOCUSATE SODIUM 100 MG CAPSULE PO SCH ×2 (08:19→20:30)
[2020-01-07] MEDS: METOPROLOL TARTRATE 25 MG TABLET PO SCH ×2 (08:19→20:30)
[2020-01-07] MEDS: ASPIRIN CHEW 81 MG TABLET PO SCH (08:19)
[2020-01-07] MEDS: ISOSORBIDE MONONITRATE 60 MG TABLET PO SCH (08:19)
[2020-01-07] MEDS: PIPERACILLIN/TAZOBACTAM 2,250 MG in SODIUM CHLORIDE 0.9% 100 ML IV SCH ×2 (08:19→20:30)
[2020-01-07] MEDS: PARoxetine 20 MG TABLET PO SCH (08:19)
[2020-01-07] MEDS: PANTOPRAZOLE 40 MG TABLET PO SCH (08:19)
[2020-01-07] MEDS: THEOPHYLLINE ER 300 MG TABLET PO SCH (08:19)
[2020-01-07] MEDS: levETIRAcetam 500 MG TABLET PO SCH ×2 (08:19→20:30)
[2020-01-07] MEDS: ACETAMINOPHEN 325 MG TABLET PO PRN (08:19)
[2020-01-07] MEDS: SEVELAMER CARBONATE 800 MG TABLET PO SCH ×3 (09:30→16:04)
[2020-01-07] MEDS: HYDROXYCHLOROQUINE 200 MG TABLET PO SCH ×2 (10:38→20:30)
[2020-01-07] MEDS: SODIUM CHLORIDE 0.9% 1,000 ML IV SCH ×3 (14:46→14:48)
[2020-01-07] MEDS: ATORVASTATIN 40 MG TABLET PO SCH (20:30)
[2020-01-07] MEDS: AZITHROMYCIN 250 MG TABLET PO SCH (20:30)
[2020-01-07] MEDS: traZODone 50 MG TABLET PO SCH (20:30)
[2020-01-08] MEDS: ACETAMINOPHEN 325 MG TABLET PO PRN ×2 (04:50→18:28)
[2020-01-08] MEDS: PARoxetine 20 MG TABLET PO SCH (08:51)
[2020-01-08] MEDS: DOCUSATE SODIUM 100 MG CAPSULE PO SCH ×2 (08:51→21:15)
[2020-01-08] MEDS: levETIRAcetam 500 MG TABLET PO SCH ×2 (08:51→21:15)
[2020-01-08] MEDS: ASPIRIN CHEW 81 MG TABLET PO SCH (08:51)
[2020-01-08] MEDS: HYDROXYCHLOROQUINE 200 MG TABLET PO SCH ×2 (08:52→21:16)
[2020-01-08] MEDS: THEOPHYLLINE ER 300 MG TABLET PO SCH (08:52)
[2020-01-08] MEDS: PANTOPRAZOLE 40 MG TABLET PO SCH (08:52)
[2020-01-08] MEDS: METOPROLOL TARTRATE 25 MG TABLET PO SCH ×2 (08:53→21:16)
[2020-01-08] MEDS: PIPERACILLIN/TAZOBACTAM 2,250 MG in SODIUM CHLORIDE 0.9% 100 ML IV SCH ×2 (08:53→23:37)
[2020-01-08] MEDS: ISOSORBIDE MONONITRATE 60 MG TABLET PO SCH (08:54)
[2020-01-08] MEDS: SEVELAMER CARBONATE 800 MG TABLET PO SCH ×3 (09:01→18:15)
[2020-01-08] MEDS ORDERED: DEXTROSE 50% 25 GM/50 ML VIAL IV PRN (14:50)
[2020-01-08] MEDS ORDERED: GLUCAGON 1 MG VIAL IM PRN (14:50)
[2020-01-08] MEDS ORDERED: DEXTROSE 10% 250 ML BAG IV PRN (14:59)
[2020-01-08] MEDS: INSULIN REGULAR 100 UNIT/ML SUBCUT SCH ×2 (18:15→21:15)
[2020-01-08] MEDS ORDERED: cloNIDine 0.1 MG TABLET PO PRN (18:17)
[2020-01-08] MEDS ORDERED: DILTIAZEM 50 MG/10 ML VIAL IV ONE (18:21)
[2020-01-08] MEDS ORDERED: DILTIAZEM 25 MG/5 ML VIAL IV ONE (18:25)
[2020-01-08] MEDS: dilTIAZem Drip 125 MG/125 ML PREMIX IV SCH (18:31)
[2020-01-08] MEDS: MORPHINE 4 MG/1 ML VIAL IV PRN (18:57)
[2020-01-08] MEDS: SODIUM CHLORIDE 0.9% 1,000 ML IV SCH (19:00)
[2020-01-08] MEDS: traZODone 50 MG TABLET PO SCH (21:15)
[2020-01-08] MEDS: ATORVASTATIN 40 MG TABLET PO SCH (21:15)
[2020-01-08] MEDS: AZITHROMYCIN 250 MG TABLET PO SCH (21:16)
[2020-01-09 06:50] LABS: Basophils % 0.1 % (0.0-0.8); Hematocrit 26.2 VOL% (35.7-47.0); Hemoglobin 7.9 GM/DL (12.0-16.0); Immature Granulocytes % 1.1 %; Immature Granulocytes Absolute 0.08 #; Lymphocytes # 0.2 10*3/uL (1.4-4.0); Lymphocytes % 2.6 % (21.3-54.2); Mean Corpuscular HGB Conc 30.2 GM/DL (32-36); Mean Corpuscular Volume 94.2 FL (87-102); Monocytes % 3.5 % (1.7-12.7); Neutrophils % 92.7 % (38.7-73.9); Platelet Count 163 T/CUMM (130-400); Red Blood Count 2.78 MC/CUMM (3.8-5.5); Red Cell Distribution Width 19.3 % (9.3-17.3); White Blood Count 7.2 T/CUMM (4-12)
[2020-01-09 07:07] LABS: Albumin 2.4 G/DL (3.4-5.0); Calcium 9.7 MG/DL (8.5-10.1); Osmolality,Calculated 287.2 MOS/KG (273-304); Total Protein 7.3 G/DL (6.4-8.3)
[2020-01-09 07:16] LABS: Band Neutrophils 4 % (0-10); Hypochromasia 1+; Lymphocytes 2 % (20-55); Microcytosis 1+; Nucleated Red Blood Cells 1 (0-5); Segmented Neutrophils 89 % (50-85); Total Cells Counted 100
[2020-01-09 07:17] LABS: Acanthocytes Few; Platelet Estimate Adequate; Target Cells Slight
[2020-01-09] MEDS: INSULIN REGULAR 100 UNIT/ML SUBCUT SCH ×4 (08:17→20:16)
[2020-01-09] MEDS: PARoxetine 20 MG TABLET PO SCH (08:18)
[2020-01-09] MEDS: ISOSORBIDE MONONITRATE 60 MG TABLET PO SCH (08:19)
[2020-01-09] MEDS: METOPROLOL TARTRATE 25 MG TABLET PO SCH ×2 (08:19→20:17)
[2020-01-09] MEDS: levETIRAcetam 500 MG TABLET PO SCH ×2 (08:19→20:17)
[2020-01-09] MEDS: THEOPHYLLINE ER 300 MG TABLET PO SCH (08:19)
[2020-01-09] MEDS: SEVELAMER CARBONATE 800 MG TABLET PO SCH ×3 (08:19→16:53)
[2020-01-09] MEDS: PANTOPRAZOLE 40 MG TABLET PO SCH (08:19)
[2020-01-09] MEDS: DOCUSATE SODIUM 100 MG CAPSULE PO SCH ×2 (08:20→20:16)
[2020-01-09] MEDS: ASPIRIN CHEW 81 MG TABLET PO SCH (08:20)
[2020-01-09] MEDS: HYDROXYCHLOROQUINE 200 MG TABLET PO SCH ×2 (08:20→20:17)
[2020-01-09] MEDS: MORPHINE 4 MG/1 ML VIAL IV PRN (10:06)
[2020-01-09] MEDS: PIPERACILLIN/TAZOBACTAM 2,250 MG in SODIUM CHLORIDE 0.9% 100 ML IV SCH ×2 (10:30→22:57)
[2020-01-09] MEDS: methylPREDNISolone SOD SUC 40 MG/1 ML VIAL IV SCH ×2 (13:13→16:53)
[2020-01-09] MEDS: dilTIAZem Drip 125 MG/125 ML PREMIX IV SCH ×2 (16:16→19:41)
[2020-01-09] MEDS: traZODone 50 MG TABLET PO SCH (20:16)
[2020-01-09] MEDS: ATORVASTATIN 40 MG TABLET PO SCH (20:17)
[2020-01-09] MEDS ORDERED: SODIUM CHLORIDE 0.9% 1,000 ML IV PRN (20:41)
[2020-01-10] MEDS: methylPREDNISolone SOD SUC 40 MG/1 ML VIAL IV SCH ×3 (00:05→16:25)
[2020-01-10] MEDS: INSULIN REGULAR 100 UNIT/ML SUBCUT SCH ×4 (08:39→21:58)
[2020-01-10] MEDS: ASPIRIN CHEW 81 MG TABLET PO SCH (08:53)
[2020-01-10] MEDS: levETIRAcetam 500 MG TABLET PO SCH ×2 (08:53→21:48)
[2020-01-10] MEDS: DOCUSATE SODIUM 100 MG CAPSULE PO SCH ×2 (08:53→21:48)
[2020-01-10] MEDS: METOPROLOL TARTRATE 25 MG TABLET PO SCH ×2 (08:55→21:49)
[2020-01-10] MEDS: PARoxetine 20 MG TABLET PO SCH (08:55)
[2020-01-10] MEDS: ISOSORBIDE MONONITRATE 60 MG TABLET PO SCH (08:56)
[2020-01-10] MEDS: THEOPHYLLINE ER 300 MG TABLET PO SCH (08:56)
[2020-01-10] MEDS: PANTOPRAZOLE 40 MG TABLET PO SCH (08:57)
[2020-01-10] MEDS: HYDROXYCHLOROQUINE 200 MG TABLET PO SCH ×2 (08:57→21:49)
[2020-01-10] MEDS: SEVELAMER CARBONATE 800 MG TABLET PO SCH ×3 (08:58→16:26)
[2020-01-10 09:33] LABS: Bilirubin,Total 0.6 MG/DL (0.2-1.0); Calcium 9.3 MG/DL (8.5-10.1); Osmolality,Calculated 295.4 MOS/KG (273-304); Total Protein 6.2 G/DL (6.4-8.3)
[2020-01-10] MEDS: PIPERACILLIN/TAZOBACTAM 2,250 MG in SODIUM CHLORIDE 0.9% 100 ML IV SCH (11:57)
[2020-01-10 12:52] LABS: Basophils % 0.1 % (0.0-0.8); Hematocrit 23.1 VOL% (35.7-47.0); Hemoglobin 7.2 GM/DL (12.0-16.0); Immature Granulocytes % 1.5 %; Immature Granulocytes Absolute 0.14 #; Lymphocytes # 0.3 10*3/uL (1.4-4.0); Lymphocytes % 2.7 % (21.3-54.2); Mean Corpuscular HGB Conc 31.2 GM/DL (32-36); Mean Corpuscular Volume 91.7 FL (87-102); Mean Platelet Volume 12.2 FL (9.6-12.0); Monocytes % 2.5 % (1.7-12.7); Neutrophils % 93.2 % (38.7-73.9); Platelet Count 189 T/CUMM (130-400); Red Blood Count 2.52 MC/CUMM (3.8-5.5); Red Cell Distribution Width 19.3 % (9.3-17.3); White Blood Count 9.1 T/CUMM (4-12)
[2020-01-10 13:53] LABS: Band Neutrophils 3 % (0-10); Hypochromasia 1+; Lymphocytes 5 % (20-55); Nucleated Red Blood Cells 1 (0-5); Ovalocytes Few; Platelet Estimate Normal; Segmented Neutrophils 91 % (50-85); Total Cells Counted 100
[2020-01-10] MEDS ORDERED: SODIUM POLYSTYRENE SULFATE 15 GM/60 ML BOTTLE PO STA (14:31)
[2020-01-10] MEDS: DILTIAZEM 30 MG TABLET PO SCH ×2 (15:38→21:47)
[2020-01-10] MEDS: dilTIAZem Drip 125 MG/125 ML PREMIX IV SCH (21:47)
[2020-01-10] MEDS: ATORVASTATIN 40 MG TABLET PO SCH (21:58)
[2020-01-11] MEDS: methylPREDNISolone SOD SUC 40 MG/1 ML VIAL IV SCH ×3 (00:23→16:36)
[2020-01-11] MEDS: hydrALAZINE 20 MG/1 ML VIAL IV PRN ×4 (03:09→23:45)
[2020-01-11] MEDS: ISOSORBIDE MONONITRATE 60 MG TABLET PO SCH (08:12)
[2020-01-11] MEDS: THEOPHYLLINE ER 300 MG TABLET PO SCH (08:12)
[2020-01-11] MEDS: ASPIRIN CHEW 81 MG TABLET PO SCH (08:12)
[2020-01-11] MEDS: SEVELAMER CARBONATE 800 MG TABLET PO SCH ×3 (08:12→16:37)
[2020-01-11] MEDS: DILTIAZEM CD 180 MG CAPSULE PO SCH (08:12)
[2020-01-11] MEDS: METOPROLOL TARTRATE 25 MG TABLET PO SCH ×2 (08:13→20:50)
[2020-01-11] MEDS: PARoxetine 20 MG TABLET PO SCH (08:13)
[2020-01-11] MEDS: DOCUSATE SODIUM 100 MG CAPSULE PO SCH ×2 (08:13→20:47)
[2020-01-11] MEDS: levETIRAcetam 500 MG TABLET PO SCH ×2 (08:13→21:48)
[2020-01-11] MEDS: PANTOPRAZOLE 40 MG TABLET PO SCH (08:13)
[2020-01-11] MEDS: INSULIN REGULAR 100 UNIT/ML SUBCUT SCH ×4 (08:15→21:47)
[2020-01-11] MEDS ORDERED: cloNIDine 0.2 MG/24 HR PATCH TRANSDERM SCH (09:00)
[2020-01-11 09:38] LABS: Basophils % 0.2 % (0.0-0.8)
[2020-01-11 09:44] LABS: Hematocrit 33.6 VOL% (35.7-47.0); Immature Granulocytes % 1.7 %; Immature Granulocytes Absolute 0.25 #; Lymphocytes # 0.4 10*3/uL (1.4-4.0); Lymphocytes % 2.5 % (21.3-54.2); Mean Corpuscular HGB Conc 31.5 GM/DL (32-36); Mean Corpuscular Volume 90.6 FL (87-102); Mean Platelet Volume 11.6 FL (9.6-12.0); Monocytes % 2.9 % (1.7-12.7); Neutrophils % 92.7 % (38.7-73.9); Platelet Count 215 T/CUMM (130-400); Red Cell Distribution Width 18.9 % (9.3-17.3)
[2020-01-11 10:06] LABS: Red Blood Count 3.71 MC/CUMM (3.8-5.5); White Blood Count 14.3 T/CUMM (4-12)
[2020-01-11 10:07] LABS: Hemoglobin 10.6 GM/DL (12.0-16.0)
[2020-01-11 10:08] LABS: Calcium 10.5 MG/DL (8.5-10.1); Osmolality,Calculated 290.5 MOS/KG (273-304)
[2020-01-11 10:11] LABS: Anisocytosis Slight; Band Neutrophils 9 % (0-10); Lymphocytes 5 % (20-55); Metamyelocytes 1 %; Platelet Estimate Normal; Segmented Neutrophils 85 % (50-85); Total Cells Counted 100
[2020-01-11 10:12] LABS: Macrocytosis 1+
[2020-01-11] MEDS: PIPERACILLIN/TAZOBACTAM 2,250 MG in SODIUM CHLORIDE 0.9% 100 ML IV SCH ×2 (11:04)
[2020-01-11] MEDS: ACETAMINOPHEN 325 MG TABLET PO PRN (11:29)
[2020-01-11] MEDS: dilTIAZem Drip 125 MG/125 ML PREMIX IV SCH (17:51)
[2020-01-11] MEDS: traMADol 50 MG TABLET PO PRN (20:40)
[2020-01-11] MEDS: ATORVASTATIN 40 MG TABLET PO SCH (20:47)
[2020-01-11] MEDS: QUEtiapine 25 MG TABLET PO SCH (20:50)
[2020-01-12] MEDS: methylPREDNISolone SOD SUC 40 MG/1 ML VIAL IV SCH ×3 (02:13→21:08)
[2020-01-12 05:02] LABS: Basophils % 0.2 % (0.0-0.8); Hematocrit 34.8 VOL% (35.7-47.0); Hemoglobin 10.8 GM/DL (12.0-16.0); Immature Granulocytes % 1.5 %; Immature Granulocytes Absolute 0.25 #; Lymphocytes # 0.3 10*3/uL (1.4-4.0); Lymphocytes % 1.8 % (21.3-54.2); Mean Corpuscular Volume 91.1 FL (87-102); Mean Platelet Volume 11.3 FL (9.6-12.0); Monocytes % 2.5 % (1.7-12.7); NRBC # 0.02 10*3/uL; Platelet Count 232 T/CUMM (130-400); Red Blood Count 3.82 MC/CUMM (3.8-5.5); Red Cell Distribution Width 18.8 % (9.3-17.3); White Blood Count 16.9 T/CUMM (4-12)
[2020-01-12 05:17] LABS: Calcium 9.8 MG/DL (8.5-10.1); Osmolality,Calculated 302.1 MOS/KG (273-304)
[2020-01-12] MEDS: levETIRAcetam 500 MG TABLET PO SCH ×2 (08:11→21:07)
[2020-01-12] MEDS: PARoxetine 20 MG TABLET PO SCH (08:12)
[2020-01-12] MEDS: ISOSORBIDE MONONITRATE 60 MG TABLET PO SCH (08:12)
[2020-01-12] MEDS: DILTIAZEM CD 180 MG CAPSULE PO SCH (08:13)
[2020-01-12] MEDS: ASPIRIN CHEW 81 MG TABLET PO SCH (08:13)
[2020-01-12] MEDS: QUEtiapine 25 MG TABLET PO SCH (08:14)
[2020-01-12] MEDS: THEOPHYLLINE ER 300 MG TABLET PO SCH (08:14)
[2020-01-12] MEDS: METOPROLOL TARTRATE 25 MG TABLET PO SCH ×2 (08:14→21:07)
[2020-01-12] MEDS: DOCUSATE SODIUM 100 MG CAPSULE PO SCH ×2 (08:14→21:07)
[2020-01-12] MEDS: PANTOPRAZOLE 40 MG TABLET PO SCH (08:15)
[2020-01-12] MEDS: SEVELAMER CARBONATE 800 MG TABLET PO SCH ×4 (08:15→17:23)
[2020-01-12] MEDS: MEGESTROL 40 MG TABLET PO SCH ×2 (08:29→21:08)
[2020-01-12] MEDS: INSULIN REGULAR 100 UNIT/ML SUBCUT SCH ×4 (08:29→21:07)
[2020-01-12] MEDS: DOXAZOSIN 1 MG TABLET PO SCH (08:29)
[2020-01-12 08:46] LABS: Band Neutrophils 3 % (0-10); Lymphocytes 1 % (20-55); Platelet Estimate Normal; Segmented Neutrophils 95 % (50-85); Total Cells Counted 100
[2020-01-12] MEDS: hydrALAZINE 20 MG/1 ML VIAL IV PRN ×3 (10:48→23:30)
[2020-01-12] MEDS: cloNIDine 0.1 MG TABLET PO PRN (11:43)
[2020-01-12] MEDS: ATORVASTATIN 40 MG TABLET PO SCH (21:07)
[2020-01-13 06:52] LABS: Basophils % 0.2 % (0.0-0.8); Hematocrit 33.4 VOL% (35.7-47.0); Hemoglobin 10.2 GM/DL (12.0-16.0); Immature Granulocytes % 1.7 %; Immature Granulocytes Absolute 0.19 #; Lymphocytes # 0.2 10*3/uL (1.4-4.0); Lymphocytes % 1.8 % (21.3-54.2); Mean Corpuscular HGB Conc 30.5 GM/DL (32-36); Mean Platelet Volume 11.3 FL (9.6-12.0); Monocytes % 3.4 % (1.7-12.7); Neutrophils % 92.9 % (38.7-73.9); Platelet Count 181 T/CUMM (130-400); Red Blood Count 3.63 MC/CUMM (3.8-5.5); Red Cell Distribution Width 18.3 % (9.3-17.3); White Blood Count 11.5 T/CUMM (4-12)
[2020-01-13 07:02] LABS: Calcium 9.5 MG/DL (8.5-10.1); Osmolality,Calculated 286.5 MOS/KG (273-304)
[2020-01-13 08:16] LABS: Anisocytosis 2+; Band Neutrophils 7 % (0-10); Giant Platelets Few; Lymphocytes 2 % (20-55); Nucleated Red Blood Cells 1 (0-5); Platelet Estimate Normal; Poikilocytosis Slight; Segmented Neutrophils 86 % (50-85); Total Cells Counted 100
[2020-01-13 08:17] LABS: Burr Cells Few; Macrocytosis 1+
[2020-01-13] MEDS: PARoxetine 20 MG TABLET PO SCH (08:40)
[2020-01-13] MEDS: SEVELAMER CARBONATE 800 MG TABLET PO SCH ×3 (08:40→18:08)
[2020-01-13] MEDS: MEGESTROL 40 MG TABLET PO SCH ×2 (08:40→21:13)
[2020-01-13] MEDS: INSULIN REGULAR 100 UNIT/ML SUBCUT SCH ×4 (08:40→22:32)
[2020-01-13] MEDS: THEOPHYLLINE ER 300 MG TABLET PO SCH (08:40)
[2020-01-13] MEDS: PANTOPRAZOLE 40 MG TABLET PO SCH (08:40)
[2020-01-13] MEDS: ISOSORBIDE MONONITRATE 60 MG TABLET PO SCH (08:40)
[2020-01-13] MEDS: ASPIRIN CHEW 81 MG TABLET PO SCH (08:40)
[2020-01-13] MEDS: DILTIAZEM CD 180 MG CAPSULE PO SCH (08:40)
[2020-01-13] MEDS: methylPREDNISolone SOD SUC 40 MG/1 ML VIAL IV SCH ×2 (08:40→21:26)
[2020-01-13] MEDS: levETIRAcetam 500 MG TABLET PO SCH ×2 (08:40→21:13)
[2020-01-13] MEDS: DOCUSATE SODIUM 100 MG CAPSULE PO SCH ×2 (08:40→21:12)
[2020-01-13] MEDS: DOXAZOSIN 1 MG TABLET PO SCH (08:40)
[2020-01-13] MEDS: METOPROLOL TARTRATE 25 MG TABLET PO SCH ×2 (08:40→21:14)
[2020-01-13] MEDS: ATORVASTATIN 40 MG TABLET PO SCH (21:13)
[2020-01-14 07:02] LABS: Basophils % 0.1 % (0.0-0.8); Hematocrit 36.2 VOL% (35.7-47.0); Hemoglobin 11.3 GM/DL (12.0-16.0); Immature Granulocytes % 1.9 %; Immature Granulocytes Absolute 0.21 #; Lymphocytes # 0.3 10*3/uL (1.4-4.0); Lymphocytes % 2.4 % (21.3-54.2); Mean Corpuscular HGB Conc 31.2 GM/DL (32-36); Mean Corpuscular Volume 89.8 FL (87-102); Mean Platelet Volume 11.8 FL (9.6-12.0); Monocytes % 2.1 % (1.7-12.7); Neutrophils % 93.5 % (38.7-73.9); Platelet Count 207 T/CUMM (130-400); Red Blood Count 4.03 MC/CUMM (3.8-5.5)
[2020-01-14 07:22] LABS: Calcium 10.5 MG/DL (8.5-10.1); Osmolality,Calculated 289.9 MOS/KG (273-304)
[2020-01-14 07:42] LABS: Hypochromasia Slight; Lymphocytes 2 % (20-55); Platelet Estimate Normal; Segmented Neutrophils 97 % (50-85); Total Cells Counted 100
[2020-01-14 07:43] LABS: Anisocytosis 1+; Microcytosis Slight
[2020-01-14 07:44] LABS: Target Cells Slight
[2020-01-14] MEDS: INSULIN REGULAR 100 UNIT/ML SUBCUT SCH ×4 (09:33→20:55)
[2020-01-14] MEDS: ASPIRIN CHEW 81 MG TABLET PO SCH (09:34)
[2020-01-14] MEDS: DILTIAZEM CD 180 MG CAPSULE PO SCH (09:34)
[2020-01-14] MEDS: DOCUSATE SODIUM 100 MG CAPSULE PO SCH ×2 (09:35→20:55)
[2020-01-14] MEDS: DOXAZOSIN 1 MG TABLET PO SCH (09:35)
[2020-01-14] MEDS: ISOSORBIDE MONONITRATE 60 MG TABLET PO SCH (09:36)
[2020-01-14] MEDS: levETIRAcetam 500 MG TABLET PO SCH ×2 (09:36→20:55)
[2020-01-14] MEDS: MEGESTROL 40 MG TABLET PO SCH ×2 (09:37→20:55)
[2020-01-14] MEDS: PARoxetine 20 MG TABLET PO SCH (09:37)
[2020-01-14] MEDS: METOPROLOL TARTRATE 25 MG TABLET PO SCH ×2 (09:37→20:55)
[2020-01-14] MEDS: PANTOPRAZOLE 40 MG TABLET PO SCH (09:38)
[2020-01-14] MEDS: SEVELAMER CARBONATE 800 MG TABLET PO SCH ×3 (09:38→17:17)
[2020-01-14] MEDS: THEOPHYLLINE ER 300 MG TABLET PO SCH (09:38)
[2020-01-14] MEDS: methylPREDNISolone SOD SUC 40 MG/1 ML VIAL IV SCH (09:42)
[2020-01-14] MEDS: cloNIDine 0.1 MG TABLET PO PRN (12:52)
[2020-01-14] MEDS: ATORVASTATIN 40 MG TABLET PO SCH (20:55)
[2020-01-15 07:13] LABS: Basophils % 0.1 % (0.0-0.8); Hematocrit 32.4 VOL% (35.7-47.0); Hemoglobin 10.6 GM/DL (12.0-16.0); Immature Granulocytes % 2.1 %; Immature Granulocytes Absolute 0.22 #; Lymphocytes # 0.4 10*3/uL (1.4-4.0); Lymphocytes % 3.6 % (21.3-54.2); Mean Corpuscular HGB Conc 32.7 GM/DL (32-36); Mean Corpuscular Volume 87.8 FL (87-102); Mean Platelet Volume 12.4 FL (9.6-12.0); Neutrophils % 86.2 % (38.7-73.9); Platelet Count 187 T/CUMM (130-400); Red Blood Count 3.69 MC/CUMM (3.8-5.5); Red Cell Distribution Width 17.1 % (9.3-17.3); White Blood Count 10.3 T/CUMM (4-12)
[2020-01-15 07:24] LABS: Calcium 10.3 MG/DL (8.5-10.1); Osmolality,Calculated 290.7 MOS/KG (273-304)
[2020-01-15 07:40] LABS: Anisocytosis 2+; Band Neutrophils 3 % (0-10); Lymphocytes 2 % (20-55); Platelet Estimate Normal; Segmented Neutrophils 88 % (50-85); Total Cells Counted 100
[2020-01-15 07:41] LABS: Burr Cells Few; Hypochromasia Slight; Macrocytosis 1+
[2020-01-15] MEDS: INSULIN REGULAR 100 UNIT/ML SUBCUT SCH ×4 (09:24→21:31)
[2020-01-15] MEDS: DOXAZOSIN 1 MG TABLET PO SCH (09:25)
[2020-01-15] MEDS: ASPIRIN CHEW 81 MG TABLET PO SCH (09:25)
[2020-01-15] MEDS: DILTIAZEM CD 180 MG CAPSULE PO SCH (09:25)
[2020-01-15] MEDS: ISOSORBIDE MONONITRATE 60 MG TABLET PO SCH (09:26)
[2020-01-15] MEDS: levETIRAcetam 500 MG TABLET PO SCH ×2 (09:26→20:52)
[2020-01-15] MEDS: DOCUSATE SODIUM 100 MG CAPSULE PO SCH ×2 (09:26→20:52)
[2020-01-15] MEDS: PARoxetine 20 MG TABLET PO SCH (09:27)
[2020-01-15] MEDS: METOPROLOL TARTRATE 25 MG TABLET PO SCH ×2 (09:27→20:52)
[2020-01-15] MEDS: PANTOPRAZOLE 40 MG TABLET PO SCH (09:27)
[2020-01-15] MEDS: MEGESTROL 40 MG TABLET PO SCH ×2 (09:27→20:52)
[2020-01-15] MEDS: SEVELAMER CARBONATE 800 MG TABLET PO SCH ×3 (09:28→16:59)
[2020-01-15] MEDS: THEOPHYLLINE ER 300 MG TABLET PO SCH (09:28)
[2020-01-15] MEDS: ATORVASTATIN 40 MG TABLET PO SCH (20:52)
[2020-01-16] MEDS: DOXAZOSIN 1 MG TABLET PO SCH (08:25)
[2020-01-16] MEDS: ASPIRIN CHEW 81 MG TABLET PO SCH (08:25)
[2020-01-16] MEDS: DILTIAZEM CD 180 MG CAPSULE PO SCH (08:25)
[2020-01-16] MEDS: ISOSORBIDE MONONITRATE 60 MG TABLET PO SCH (08:25)
[2020-01-16] MEDS: SEVELAMER CARBONATE 800 MG TABLET PO SCH ×3 (08:25→16:17)
[2020-01-16] MEDS: THEOPHYLLINE ER 300 MG TABLET PO SCH (08:25)
[2020-01-16] MEDS: MEGESTROL 40 MG TABLET PO SCH ×2 (08:25→20:08)
[2020-01-16] MEDS: PANTOPRAZOLE 40 MG TABLET PO SCH (08:25)
[2020-01-16] MEDS: METOPROLOL TARTRATE 25 MG TABLET PO SCH ×2 (08:25→20:08)
[2020-01-16] MEDS: levETIRAcetam 500 MG TABLET PO SCH ×2 (08:25→20:08)
[2020-01-16] MEDS: PARoxetine 20 MG TABLET PO SCH (08:25)
[2020-01-16] MEDS: DOCUSATE SODIUM 100 MG CAPSULE PO SCH ×2 (08:25→20:08)
[2020-01-16] MEDS: INSULIN REGULAR 100 UNIT/ML SUBCUT SCH ×4 (08:30→20:08)
[2020-01-16] MEDS: INSULIN GLARGINE 100 UNIT/ML SUBCUT SCH (11:43)
[2020-01-16] MEDS: ATORVASTATIN 40 MG TABLET PO SCH (20:08)
[2020-01-17 05:10] LABS: Basophils % 0.1 % (0.0-0.8); Eosinophils % 0.6 % (0.00-10.9); Hematocrit 29.7 VOL% (35.7-47.0); Hemoglobin 9.5 GM/DL (12.0-16.0); Immature Granulocytes % 1.7 %; Immature Granulocytes Absolute 0.12 #; Lymphocytes # 0.2 10*3/uL (1.4-4.0); Lymphocytes % 3.2 % (21.3-54.2); Mean Corpuscular Volume 88.1 FL (87-102); Mean Platelet Volume 12.5 FL (9.6-12.0); Monocytes % 8.6 % (1.7-12.7); Neutrophils % 85.8 % (38.7-73.9); Platelet Count 131 T/CUMM (130-400); Red Blood Count 3.37 MC/CUMM (3.8-5.5); Red Cell Distribution Width 17.2 % (9.3-17.3); White Blood Count 7.1 T/CUMM (4-12)
[2020-01-17 05:36] LABS: Anisocytosis 1+; Eosinophils 1 % (0-10); Lymphocytes 3 % (20-55); Segmented Neutrophils 88 % (50-85); Total Cells Counted 100
[2020-01-17 05:37] LABS: Acanthocytes Few; Hypochromasia 1+; Platelet Estimate Adequate; Target Cells 1+
[2020-01-17] MEDS: INSULIN GLARGINE 100 UNIT/ML SUBCUT SCH (08:28)
[2020-01-17] MEDS: DOCUSATE SODIUM 100 MG CAPSULE PO SCH ×2 (08:28→21:00)
[2020-01-17] MEDS: SEVELAMER CARBONATE 800 MG TABLET PO SCH ×3 (08:28→16:14)
[2020-01-17] MEDS: ASPIRIN CHEW 81 MG TABLET PO SCH (08:28)
[2020-01-17] MEDS: DOXAZOSIN 1 MG TABLET PO SCH (08:28)
[2020-01-17] MEDS: METOPROLOL TARTRATE 25 MG TABLET PO SCH ×2 (08:28→21:00)
[2020-01-17] MEDS: PANTOPRAZOLE 40 MG TABLET PO SCH (08:28)
[2020-01-17] MEDS: THEOPHYLLINE ER 300 MG TABLET PO SCH (08:28)
[2020-01-17] MEDS: MEGESTROL 40 MG TABLET PO SCH ×2 (08:28→21:01)
[2020-01-17] MEDS: ISOSORBIDE MONONITRATE 60 MG TABLET PO SCH (08:28)
[2020-01-17] MEDS: levETIRAcetam 500 MG TABLET PO SCH ×2 (08:28→21:01)
[2020-01-17] MEDS: PARoxetine 20 MG TABLET PO SCH (08:28)
[2020-01-17] MEDS: DILTIAZEM CD 180 MG CAPSULE PO SCH (08:28)
[2020-01-17] MEDS: INSULIN REGULAR 100 UNIT/ML SUBCUT SCH ×4 (08:40→21:02)
[2020-01-17 14:55] LABS: Bilirubin,Total 0.4 MG/DL (0.2-1.0); Osmolality,Calculated 282.7 MOS/KG (273-304); Total Protein 6.1 G/DL (6.4-8.3)
[2020-01-17] MEDS: cefTRIAXone 500 MG in SYRINGE 1 EACH IV SCH (16:14)
[2020-01-17] MEDS: DOXYCYCLINE HYCLATE 100 MG CAPSULE PO SCH (16:34)
[2020-01-17] MEDS: ATORVASTATIN 40 MG TABLET PO SCH (21:00)
[2020-01-17] MEDS: ACETAMINOPHEN 325 MG TABLET PO PRN (21:01)
[2020-01-17] MEDS: traMADol 50 MG TABLET PO PRN (21:02)
[2020-01-18] MEDS: ACETAMINOPHEN 325 MG TABLET PO PRN ×2 (04:30→22:46)
[2020-01-18 05:29] LABS: Basophils % 0.1 % (0.0-0.8); Eosinophils # 0.1 10*3/uL (0.0-0.87); Hematocrit 28.8 VOL% (35.7-47.0); Hemoglobin 8.9 GM/DL (12.0-16.0); Immature Granulocytes % 2.2 %; Immature Granulocytes Absolute 0.18 #; Lymphocytes # 0.3 10*3/uL (1.4-4.0); Lymphocytes % 3.3 % (21.3-54.2); Mean Corpuscular HGB Conc 30.9 GM/DL (32-36); Mean Corpuscular Volume 90.3 FL (87-102); Mean Platelet Volume 12.9 FL (9.6-12.0); Monocytes % 8.5 % (1.7-12.7); Neutrophils % 84.9 % (38.7-73.9); Platelet Count 111 T/CUMM (130-400); Red Blood Count 3.19 MC/CUMM (3.8-5.5); Red Cell Distribution Width 17.5 % (9.3-17.3); White Blood Count 8.3 T/CUMM (4-12)
[2020-01-18 05:51] LABS: Calcium 9.8 MG/DL (8.5-10.1); Osmolality,Calculated 292.8 MOS/KG (273-304)
[2020-01-18 05:53] LABS: Band Neutrophils 2 % (0-10); Hypochromasia 1+; Ovalocytes Slight; Platelet Estimate Decreased; Segmented Neutrophils 92 % (50-85); Total Cells Counted 100
[2020-01-18] MEDS: PARoxetine 20 MG TABLET PO SCH (08:53)
[2020-01-18] MEDS: levETIRAcetam 500 MG TABLET PO SCH ×2 (08:53→22:46)
[2020-01-18] MEDS: INSULIN GLARGINE 100 UNIT/ML SUBCUT SCH (08:53)
[2020-01-18] MEDS: DOXAZOSIN 1 MG TABLET PO SCH (08:53)
[2020-01-18] MEDS: ASPIRIN CHEW 81 MG TABLET PO SCH (08:54)
[2020-01-18] MEDS: METOPROLOL TARTRATE 25 MG TABLET PO SCH ×2 (08:54→22:46)
[2020-01-18] MEDS: THEOPHYLLINE ER 300 MG TABLET PO SCH (08:54)
[2020-01-18] MEDS: DOCUSATE SODIUM 100 MG CAPSULE PO SCH ×2 (08:54→22:45)
[2020-01-18] MEDS: SEVELAMER CARBONATE 800 MG TABLET PO SCH ×3 (08:54→16:30)
[2020-01-18] MEDS: ISOSORBIDE MONONITRATE 60 MG TABLET PO SCH (08:54)
[2020-01-18] MEDS: DILTIAZEM CD 180 MG CAPSULE PO SCH (08:54)
[2020-01-18] MEDS: MEGESTROL 40 MG TABLET PO SCH ×2 (08:55→22:46)
[2020-01-18] MEDS: PANTOPRAZOLE 40 MG TABLET PO SCH (08:55)
[2020-01-18] MEDS: DOXYCYCLINE HYCLATE 100 MG CAPSULE PO SCH ×2 (08:57→16:30)
[2020-01-18] MEDS ORDERED: cloNIDine 0.3 MG/24 HR PATCH TRANSDERM SCH (09:00)
[2020-01-18] MEDS: INSULIN REGULAR 100 UNIT/ML SUBCUT SCH ×4 (10:30→23:05)
[2020-01-18] MEDS: cefTRIAXone 500 MG in SYRINGE 1 EACH IV SCH (16:29)
[2020-01-18] MEDS: ATORVASTATIN 40 MG TABLET PO SCH (22:45)
[2020-01-18] MEDS: traMADol 50 MG TABLET PO PRN (22:45)
[2020-01-19] MEDS: cloNIDine 0.1 MG TABLET PO PRN (00:55)
[2020-01-19] MEDS: ACETAMINOPHEN 325 MG TABLET PO PRN ×3 (04:50→17:45)
[2020-01-19 05:09] LABS: Basophils % 0.1 % (0.0-0.8); Eosinophils % 0.5 % (0.00-10.9); Hematocrit 28.2 VOL% (35.7-47.0); Hemoglobin 8.8 GM/DL (12.0-16.0); Immature Granulocytes % 2.1 %; Immature Granulocytes Absolute 0.18 #; Lymphocytes # 0.3 10*3/uL (1.4-4.0); Lymphocytes % 3.2 % (21.3-54.2); Mean Corpuscular HGB Conc 31.2 GM/DL (32-36); Mean Corpuscular Volume 90.1 FL (87-102); Mean Platelet Volume 13.6 FL (9.6-12.0); Monocytes % 12.6 % (1.7-12.7); Neutrophils % 81.5 % (38.7-73.9); Platelet Count 124 T/CUMM (130-400); Red Blood Count 3.13 MC/CUMM (3.8-5.5); Red Cell Distribution Width 17.3 % (9.3-17.3); White Blood Count 8.5 T/CUMM (4-12)
[2020-01-19 05:26] LABS: Calcium 9.5 MG/DL (8.5-10.1); Osmolality,Calculated 280.8 MOS/KG (273-304)
[2020-01-19 05:55] LABS: Eosinophils 1 % (0-10); Hypochromasia 1+; Platelet Estimate Adequate; Segmented Neutrophils 83 % (50-85); Total Cells Counted 100
[2020-01-19 05:56] LABS: Microcytosis 1+
[2020-01-19] MEDS: ASPIRIN CHEW 81 MG TABLET PO SCH (09:00)
[2020-01-19] MEDS: INSULIN GLARGINE 100 UNIT/ML SUBCUT SCH (09:00)
[2020-01-19] MEDS: SEVELAMER CARBONATE 800 MG TABLET PO SCH ×3 (09:00→17:30)
[2020-01-19] MEDS: DOXYCYCLINE HYCLATE 100 MG CAPSULE PO SCH ×2 (09:00→17:30)
[2020-01-19] MEDS: THEOPHYLLINE ER 300 MG TABLET PO SCH (09:00)
[2020-01-19] MEDS: PARoxetine 20 MG TABLET PO SCH (09:00)
[2020-01-19] MEDS: levETIRAcetam 500 MG TABLET PO SCH ×2 (09:00→23:30)
[2020-01-19] MEDS: PANTOPRAZOLE 40 MG TABLET PO SCH (09:00)
[2020-01-19] MEDS: INSULIN REGULAR 100 UNIT/ML SUBCUT SCH ×4 (09:00→23:30)
[2020-01-19] MEDS: METOPROLOL TARTRATE 25 MG TABLET PO SCH ×2 (09:00→23:30)
[2020-01-19] MEDS: DOCUSATE SODIUM 100 MG CAPSULE PO SCH ×2 (10:53→23:30)
[2020-01-19] MEDS: MEGESTROL 40 MG TABLET PO SCH ×2 (10:54→23:30)
[2020-01-19] MEDS: DILTIAZEM CD 180 MG CAPSULE PO SCH (14:06)
[2020-01-19] MEDS: DOXAZOSIN 1 MG TABLET PO SCH (14:08)
[2020-01-19] MEDS: ISOSORBIDE MONONITRATE 60 MG TABLET PO SCH (14:09)
[2020-01-19] MEDS: cefTRIAXone 500 MG in SYRINGE 1 EACH IV SCH (15:50)
[2020-01-19] MEDS: ATORVASTATIN 40 MG TABLET PO SCH (23:30)
[2020-01-20] MEDS ORDERED: FERROUS SULFATE 325 MG TABLET PO SCH (09:00)
[2020-01-20] MEDS: INSULIN REGULAR 100 UNIT/ML SUBCUT SCH (09:35)
[2020-01-20] MEDS: DILTIAZEM CD 180 MG CAPSULE PO SCH (09:35)
[2020-01-20] MEDS: DOXYCYCLINE HYCLATE 100 MG CAPSULE PO SCH (09:35)
[2020-01-20] MEDS: ASPIRIN CHEW 81 MG TABLET PO SCH (09:35)
[2020-01-20] MEDS: DOCUSATE SODIUM 100 MG CAPSULE PO SCH (09:36)
[2020-01-20] MEDS: DOXAZOSIN 1 MG TABLET PO SCH (09:36)
[2020-01-20] MEDS: ISOSORBIDE MONONITRATE 60 MG TABLET PO SCH (09:36)
[2020-01-20] MEDS: METOPROLOL TARTRATE 25 MG TABLET PO SCH (09:37)
[2020-01-20] MEDS: MEGESTROL 40 MG TABLET PO SCH (09:37)
[2020-01-20] MEDS: levETIRAcetam 500 MG TABLET PO SCH (09:37)
[2020-01-20] MEDS: PANTOPRAZOLE 40 MG TABLET PO SCH (09:37)
[2020-01-20] MEDS: PARoxetine 20 MG TABLET PO SCH (09:37)
[2020-01-20] MEDS: INSULIN GLARGINE 100 UNIT/ML SUBCUT SCH (09:37)
[2020-01-20 09:38] VITALS: BP 155/48
[2020-01-20] MEDS: SEVELAMER CARBONATE 800 MG TABLET PO SCH (09:38)
[2020-01-20] MEDS: THEOPHYLLINE ER 300 MG TABLET PO SCH (09:38)
== END 2020-01-20 10:01 | disposition home or self-care (01) | DRG 177 ==
LOC: EDBD → EDUNIT# → N.ED 19:08 → N.EDINP 21:40 → N.2E 22:46 → N.CC 01-08 18:15 → N.2E 01-13 18:09
PROVIDERS: ADMIT Internal Medicine; ATTEND Internal Medicine

== ENCOUNTER 2020-01-28 18:54 | Inpatient (IN) ==
[2020-01-28 20:06] LABS: Basophils % 0.1 % (0.0-0.8); Hematocrit 25.6 VOL% (35.7-47.0); Hemoglobin 7.8 GM/DL (12.0-16.0); Immature Granulocytes % 1.2 %; Immature Granulocytes Absolute 0.17 #; Lymphocytes # 0.7 10*3/uL (1.4-4.0); Lymphocytes % 4.7 % (21.3-54.2); Mean Corpuscular HGB Conc 30.5 GM/DL (32-36); Mean Corpuscular Volume 94.8 FL (87-102); Mean Platelet Volume 12.1 FL (9.6-12.0); Monocytes % 4.7 % (1.7-12.7); NRBC # 0.07 10*3/uL; Neutrophils % 89.3 % (38.7-73.9); Platelet Count 238 T/CUMM (130-400); Red Cell Distribution Width 17.6 % (9.3-17.3); White Blood Count 14.7 T/CUMM (4-12)
[2020-01-28 20:27] LABS: ABG Base Excess -10.2 MMOL/L (-2.5-2.5); ABG HCO3 16.1 MMOL/L (20-26); ABG Oxygen Saturation 90.4 % (95-100); ABG PCO2 68.8 MM HG (35-48); ABG PO2 90.9 MM HG (80-95); ABG TCO2 19.9 MMOL/L (23-27)
[2020-01-28 20:29] LABS: ABG PH 7.071 (7.35-7.45)
[2020-01-28] MEDS ORDERED: LEVOFLOXACIN INJ 100 ML IV ONE (20:32)
[2020-01-28 20:35] LABS: Band Neutrophils 1 % (0-10); Hypochromasia 1+; Lymphocytes 4 % (20-55); Macrocytosis Slight; Platelet Estimate Normal; Segmented Neutrophils 90 % (50-85); Total Cells Counted 100
[2020-01-28 20:36] LABS: Polychromasia Few
[2020-01-28] MEDS ORDERED: CALCIUM CHLORIDE 1,000 MG/10 ML SYRINGE IV ONE (20:37)
[2020-01-28] MEDS ORDERED: DEXTROSE 50% 25 GM/50 ML SYRINGE IV ONE (20:37)
[2020-01-28] MEDS ORDERED: SODIUM BICARBONATE 10 MEQ/10 ML SYRINGE IV ONE (20:37)
[2020-01-28] MEDS ORDERED: EPINEPHrine 1 MG/10 ML SYRINGE ONE (20:37)
[2020-01-28 20:48] LABS: Alanine Aminotransferase < 6 U/L (13-56); Albumin 2.4 G/DL (3.4-5.0); Alkaline Phosphatase 83 U/L (45-117); Aspartate Amino Transferase 12 U/L (0-37); Blood Urea Nitrogen 62 MG/DL (7-18); Calcium 8.4 MG/DL (8.5-10.1); Estimated Glom Filtration Rate 6 ML/MIN; Ferritin 11695.3 ng/ml (8-252); Glucose 438 MG/DL (74-106); Osmolality,Calculated 285.6 MOS/KG (273-304); Total Protein 6.7 G/DL (6.4-8.3)
[2020-01-28] MEDS ORDERED: DOPamine 800 MG/250 ML PREMIX IV ONE (20:52)
[2020-01-28 21:22] LABS: ABG Base Excess -8.2 MMOL/L (-2.5-2.5); ABG HCO3 17.7 MMOL/L (20-26); ABG Oxygen Saturation 99.9 % (95-100); ABG PCO2 33.4 MM HG (35-48); ABG PH 7.318 (7.35-7.45); ABG TCO2 16.2 MMOL/L (23-27)
[2020-01-28] MEDS ORDERED: EPINEPHrine 1 MG/ML VIAL ONE (21:49)
[2020-01-28] MEDS ORDERED: NOREPINEPHRINE 4 MG/4 ML VIAL IV ONE ×3 (21:51→22:23)
[2020-01-28] MEDS: NOREPINEPHRINE 8 MG in SODIUM CHLORIDE 0.9% 242 ML IV SCH (21:57)
[2020-01-28] MEDS ORDERED: ALBUTEROL 2.5 MG/3 ML NEB RESP TX PRN (22:16)
[2020-01-28] MEDS ORDERED: ONDANSETRON 4 MG/2 ML VIAL IV PRN (22:16)
[2020-01-28] MEDS ORDERED: PROMETHAZINE 25 MG/1 ML VIAL IM PRN (22:16)
[2020-01-28] MEDS ORDERED: ENOXAPARIN 30 MG/0.3 ML SYRINGE SUBCUT SCH (22:30)
[2020-01-28] MEDS ORDERED: MIDAZOLAM 2 MG/2 ML VIAL IV ONE (22:34)
[2020-01-28] MEDS ORDERED: LEVOFLOXACIN INJ 500 MG in PREMIX 1 EACH IV STA (22:35)
[2020-01-28] MEDS ORDERED: DOPamine 800 MG/250 ML PREMIX IV PRN (22:36)
[2020-01-28] MEDS ORDERED: MIDAZOLAM 10 MG/2 ML VIAL ONE (22:41)
[2020-01-28] MEDS ORDERED: VANCOMYCIN INJ 1,000 MG in SODIUM CHLORIDE 0.9% 250 ML IV ONE (23:00)
[2020-01-28 23:04] LABS: ABG Base Excess -4.9 MMOL/L (-2.5-2.5); ABG HCO3 20.4 MMOL/L (20-26); ABG Oxygen Saturation 99.6 % (95-100); ABG PCO2 42.1 MM HG (35-48); ABG PH 7.311 (7.35-7.45); ABG TCO2 18.8 MMOL/L (23-27)
[2020-01-28 23:08] LABS: INR 1.4; PT Patient Result 14.9 SECS (9.8-11.9)
[2020-01-28 23:20] LABS: Basophils % 0.1 % (0.0-0.8); Hematocrit 26.6 VOL% (35.7-47.0); Hemoglobin 8.2 GM/DL (12.0-16.0); Immature Granulocytes % 2.6 %; Immature Granulocytes Absolute 0.55 #; Lymphocytes # 0.3 10*3/uL (1.4-4.0); Lymphocytes % 1.5 % (21.3-54.2); Mean Corpuscular HGB Conc 30.8 GM/DL (32-36); Mean Corpuscular Volume 94.3 FL (87-102); Mean Platelet Volume 12.3 FL (9.6-12.0); Monocytes % 1.6 % (1.7-12.7); NRBC # 0.16 10*3/uL; Neutrophils % 94.2 % (38.7-73.9); Platelet Count 250 T/CUMM (130-400); Red Blood Count 2.82 MC/CUMM (3.8-5.5); Red Cell Distribution Width 17.6 % (9.3-17.3); White Blood Count 21.1 T/CUMM (4-12)
[2020-01-28] MEDS: PANTOPRAZOLE 40 MG VIAL IV SCH (23:28)
[2020-01-29] MEDS ORDERED: LORazepam 2 MG/1 ML VIAL ONE ×3 (00:07→12:15)
[2020-01-29] MEDS: LORazepam 2 MG/1 ML VIAL IV PRN ×5 (00:20→12:16)
[2020-01-29] MEDS: MIDAZOLAM 100 MG in SODIUM CHLORIDE 0.9% 80 ML IV PRN (00:28)
[2020-01-29] MEDS: PIPERACILLIN/TAZOBACTAM 3,375 MG in SODIUM CHLORIDE 0.9% 100 ML IV SCH ×3 (00:55→23:10)
[2020-01-29 02:06] LABS: Band Neutrophils 1 % (0-10); Hypochromasia Slight; Lymphocytes 1 % (20-55); Nucleated Red Blood Cells 1 (0-5); Platelet Estimate Normal; Polychromasia Few; Segmented Neutrophils 97 % (50-85); Total Cells Counted 100
[2020-01-29 02:07] LABS: Anisocytosis 1+; Macrocytosis Slight; Microcytosis Slight
[2020-01-29 02:08] LABS: Schistocytes Slight
[2020-01-29 02:19] LABS: Alanine Aminotransferase 39 U/L (13-56); Albumin 2.5 G/DL (3.4-5.0); Alkaline Phosphatase 100 U/L (45-117); Aspartate Amino Transferase 105 U/L (0-37); Bilirubin,Total < 0.39 MG/DL (0.2-1.0); Blood Urea Nitrogen 61 MG/DL (7-18); Calcium 9.7 MG/DL (8.5-10.1); Estimated Glom Filtration Rate 6 ML/MIN; Osmolality,Calculated 293.5 MOS/KG (273-304); Total Protein 7.7 G/DL (6.4-8.3)
[2020-01-29 02:23] LABS: Glucose 560 MG/DL (74-106)
[2020-01-29] MEDS ORDERED: VANCOMYCIN INJ 500 MG in SODIUM CHLORIDE 0.9% 100 ML IV PRN (02:54)
[2020-01-29 03:27] LABS: Basophils % 0.2 % (0.0-0.8); Hematocrit 24.7 VOL% (35.7-47.0); Hemoglobin 7.9 GM/DL (12.0-16.0); Immature Granulocytes % 1.3 %; Immature Granulocytes Absolute 0.34 #; Lymphocytes # 0.4 10*3/uL (1.4-4.0); Lymphocytes % 1.5 % (21.3-54.2); Mean Corpuscular Volume 91.5 FL (87-102); Mean Platelet Volume 11.5 FL (9.6-12.0); Monocytes % 9.2 % (1.7-12.7); NRBC # 0.11 10*3/uL; Neutrophils % 87.8 % (38.7-73.9); Platelet Count 242 T/CUMM (130-400); Red Cell Distribution Width 17.3 % (9.3-17.3); White Blood Count 25.4 T/CUMM (4-12)
[2020-01-29] MEDS: NOREPINEPHRINE 8 MG in SODIUM CHLORIDE 0.9% 242 ML IV SCH ×3 (04:20→22:46)
[2020-01-29] MEDS: INSULIN REGULAR 100 UNIT/ML SUBCUT SCH ×6 (04:30→20:24)
[2020-01-29 04:35] LABS: ABG Base Excess 3.9 MMOL/L (-2.5-2.5); ABG HCO3 27.7 MMOL/L (20-26); ABG Oxygen Saturation 99.2 % (95-100); ABG TCO2 28.9 MMOL/L (23-27)
[2020-01-29 04:53] LABS: INR 1.5
[2020-01-29 04:55] LABS: Platelet Estimate Adequate; Segmented Neutrophils 87 % (50-85); Total Cells Counted 100
[2020-01-29 04:56] LABS: Hypochromasia 1+; Ovalocytes Slight
[2020-01-29 04:57] LABS: Microcytosis Slight
[2020-01-29 05:31] LABS: Calcium 9.1 MG/DL (8.5-10.1)
[2020-01-29 05:32] LABS: Osmolality,Calculated 290.4 MOS/KG (273-304)
[2020-01-29] MEDS ORDERED: HEPARIN DRIP 25,000 UNITS/500 ML PREMIX IV SCH (08:00)
[2020-01-29] MEDS: HYDROXYCHLOROQUINE 200 MG TABLET PO SCH ×2 (08:23→20:30)
[2020-01-29] MEDS: HEPARIN DRIP 25,000 UNITS/500 ML PREMIX IV SCH (12:29)
[2020-01-29] MEDS ORDERED: HEPARIN 5,000 UNIT/1 ML VIAL IV ONE (18:46)
[2020-01-29] MEDS: PANTOPRAZOLE 40 MG VIAL IV SCH (20:30)
[2020-01-30] MEDS: INSULIN REGULAR 100 UNIT/ML SUBCUT SCH ×7 (00:39→23:59)
[2020-01-30 04:37] LABS: ABG Base Excess 1.1 MMOL/L (-2.5-2.5); ABG HCO3 25.4 MMOL/L (20-26); ABG Oxygen Saturation 96.6 % (95-100); ABG PCO2 36.1 MM HG (35-48); ABG PH 7.449 (7.35-7.45); ABG PO2 84.7 MM HG (80-95); ABG TCO2 23.8 MMOL/L (23-27)
[2020-01-30 04:54] LABS: Basophils % 0.1 % (0.0-0.8); Eosinophils % 0.1 % (0.00-10.9); Hematocrit 19.8 VOL% (35.7-47.0); Immature Granulocytes % 0.8 %; Immature Granulocytes Absolute 0.11 #; Lymphocytes # 0.4 10*3/uL (1.4-4.0); Lymphocytes % 2.8 % (21.3-54.2); Mean Corpuscular HGB Conc 31.3 GM/DL (32-36); Mean Corpuscular Volume 91.2 FL (87-102); Mean Platelet Volume 12.2 FL (9.6-12.0); Monocytes % 7.9 % (1.7-12.7); NRBC # 0.05 10*3/uL; Neutrophils % 88.3 % (38.7-73.9); Platelet Count 130 T/CUMM (130-400); Red Blood Count 2.17 MC/CUMM (3.8-5.5)
[2020-01-30 05:01] LABS: Hemoglobin 6.2 GM/DL (12.0-16.0)
[2020-01-30 05:06] LABS: Calcium 8.5 MG/DL (8.5-10.1); Osmolality,Calculated 280.8 MOS/KG (273-304)
[2020-01-30] MEDS: LORazepam 2 MG/1 ML VIAL IV PRN (05:15)
[2020-01-30] MEDS ORDERED: SODIUM CHLORIDE 0.9% 1,000 ML IV PRN (05:45)
[2020-01-30 07:36] LABS: Anisocytosis 1+; Band Neutrophils 1 % (0-10); Hypochromasia 1+; Lymphocytes 3 % (20-55); Microcytosis 1+; Segmented Neutrophils 95 % (50-85); Total Cells Counted 100
[2020-01-30 07:37] LABS: Acanthocytes Few; Burr Cells Slight; Platelet Estimate Adequate
[2020-01-30] MEDS: HYDROXYCHLOROQUINE 200 MG TABLET PO SCH ×2 (08:28→20:48)
[2020-01-30] MEDS: ZINC SULFATE 220 MG CAPSULE PO SCH (08:28)
[2020-01-30] MEDS ORDERED: MAGNESIUM SULF RIDER 2 GM in PREMIX 1 EACH IV ONE (09:38)
[2020-01-30] MEDS: MIDAZOLAM 100 MG in SODIUM CHLORIDE 0.9% 80 ML IV PRN (11:00)
[2020-01-30] MEDS ORDERED: VANCOMYCIN INJ 500 MG in SODIUM CHLORIDE 0.9% 100 ML IV ONE (12:00)
[2020-01-30] MEDS ORDERED: METOPROLOL TARTRATE 25 MG TABLET PO SCH ×2 (12:00→21:00)
[2020-01-30] MEDS: HEPARIN DRIP 25,000 UNITS/500 ML PREMIX IV SCH (12:09)
[2020-01-30] MEDS ORDERED: hydrALAZINE 20 MG/1 ML VIAL IV PRN (12:22)
[2020-01-30] MEDS: PIPERACILLIN/TAZOBACTAM 3,375 MG in SODIUM CHLORIDE 0.9% 100 ML IV SCH ×2 (12:22→23:56)
[2020-01-30] MEDS ORDERED: METOPROLOL TARTRATE 25 MG TABLET PO ONE (12:24)
[2020-01-30] MEDS: hydrALAZINE 25 MG TABLET PO SCH ×2 (14:31→20:48)
[2020-01-30] MEDS: niCARdipine INJ 25 MG in SODIUM CHLORIDE 0.9% 240 ML IV PRN ×2 (15:45→20:07)
[2020-01-30 18:13] LABS: Hematocrit 28.8 VOL% (35.7-47.0)
[2020-01-30 18:14] LABS: Hemoglobin 8.8 GM/DL (12.0-16.0)
[2020-01-30] MEDS ORDERED: amLODIPine 5 MG TABLET PO ONE (20:27)
[2020-01-30] MEDS: PANTOPRAZOLE 40 MG VIAL IV SCH (20:48)
[2020-01-30] MEDS: NOREPINEPHRINE 8 MG in SODIUM CHLORIDE 0.9% 242 ML IV SCH (22:22)
[2020-01-31] MEDS: niCARdipine INJ 25 MG in SODIUM CHLORIDE 0.9% 240 ML IV PRN ×3 (00:11→10:40)
[2020-01-31] MEDS: hydrALAZINE 25 MG TABLET PO SCH (01:49)
[2020-01-31 05:47] LABS: ABG Base Excess 1.1 MMOL/L (-2.5-2.5); ABG HCO3 25.4 MMOL/L (20-26); ABG Oxygen Saturation 96.9 % (95-100); ABG PCO2 32.1 MM HG (35-48); ABG PH 7.483 (7.35-7.45); ABG PO2 85.3 MM HG (80-95); ABG TCO2 21.9 MMOL/L (23-27)
[2020-01-31] MEDS: INSULIN REGULAR 100 UNIT/ML SUBCUT SCH ×5 (05:58→20:45)
[2020-01-31 06:03] LABS: Basophils % 0.1 % (0.0-0.8); Eosinophils % 0.2 % (0.00-10.9); Hematocrit 27.3 VOL% (35.7-47.0); Hemoglobin 8.6 GM/DL (12.0-16.0); Immature Granulocytes % 0.8 %; Immature Granulocytes Absolute 0.13 #; Lymphocytes # 0.5 10*3/uL (1.4-4.0); Mean Corpuscular HGB Conc 31.5 GM/DL (32-36); Mean Corpuscular Volume 90.7 FL (87-102); Mean Platelet Volume 11.6 FL (9.6-12.0); Monocytes % 10.6 % (1.7-12.7); NRBC # 0.05 10*3/uL; Neutrophils % 85.3 % (38.7-73.9); Platelet Count 158 T/CUMM (130-400); Red Blood Count 3.01 MC/CUMM (3.8-5.5); Red Cell Distribution Width 18.9 % (9.3-17.3); White Blood Count 16.1 T/CUMM (4-12)
[2020-01-31 06:16] LABS: Calcium 9.5 MG/DL (8.5-10.1); Osmolality,Calculated 272.4 MOS/KG (273-304)
[2020-01-31 06:22] LABS: Lymphocytes 2 % (20-55); Nucleated Red Blood Cells 1 (0-5); Segmented Neutrophils 93 % (50-85); Total Cells Counted 100
[2020-01-31 06:23] LABS: Hypochromasia 1+; Microcytosis Slight; Platelet Estimate Adequate
[2020-01-31] MEDS: HEPARIN DRIP 25,000 UNITS/500 ML PREMIX IV SCH ×2 (07:10→11:17)
[2020-01-31] MEDS: DILTIAZEM 90 MG TABLET PO SCH ×4 (08:50→20:16)
[2020-01-31] MEDS: HYDROXYCHLOROQUINE 200 MG TABLET PO SCH ×2 (08:51→20:16)
[2020-01-31] MEDS: METOPROLOL TARTRATE 50 MG TABLET PO SCH ×2 (08:51→20:15)
[2020-01-31] MEDS: PIPERACILLIN/TAZOBACTAM 3,375 MG in SODIUM CHLORIDE 0.9% 100 ML IV SCH ×2 (11:26→23:59)
[2020-01-31] MEDS: VALPROIC ACID INJ 500 MG in SODIUM CHLORIDE 0.9% 100 ML IV SCH (18:23)
[2020-01-31] MEDS: PANTOPRAZOLE 40 MG VIAL IV SCH (20:18)
[2020-01-31] MEDS: NOREPINEPHRINE 8 MG in SODIUM CHLORIDE 0.9% 242 ML IV SCH (22:42)
[2020-02-01] MEDS: INSULIN REGULAR 100 UNIT/ML SUBCUT SCH ×6 (00:30→20:32)
[2020-02-01] MEDS: VALPROIC ACID INJ 500 MG in SODIUM CHLORIDE 0.9% 100 ML IV SCH ×3 (03:07→17:19)
[2020-02-01 04:53] LABS: ABG Base Excess -0.7 MMOL/L (-2.5-2.5); ABG HCO3 22.3 MMOL/L (20-26); ABG Oxygen Saturation 99.3 % (95-100); ABG PCO2 29.9 MM HG (35-48); ABG PH 7.491 (7.35-7.45); ABG PO2 255.8 MM HG (80-95); ABG TCO2 23.2 MMOL/L (23-27)
[2020-02-01 06:04] LABS: Basophils % 0.2 % (0.0-0.8); Eosinophils # 0.1 10*3/uL (0.0-0.87); Eosinophils % 0.9 % (0.00-10.9); Hematocrit 22.3 VOL% (35.7-47.0); Hemoglobin 7.1 GM/DL (12.0-16.0); Immature Granulocytes % 1.6 %; Immature Granulocytes Absolute 0.19 #; Lymphocytes # 0.5 10*3/uL (1.4-4.0); Lymphocytes % 4.3 % (21.3-54.2); Mean Corpuscular HGB Conc 31.8 GM/DL (32-36); Mean Corpuscular Volume 92.5 FL (87-102); Mean Platelet Volume 11.1 FL (9.6-12.0); Monocytes % 11.3 % (1.7-12.7); NRBC # 0.06 10*3/uL; Neutrophils % 81.7 % (38.7-73.9); Platelet Count 137 T/CUMM (130-400); Red Blood Count 2.41 MC/CUMM (3.8-5.5); Red Cell Distribution Width 19.1 % (9.3-17.3); White Blood Count 11.7 T/CUMM (4-12)
[2020-02-01 06:29] LABS: Eosinophils 1 % (0-10); Hypochromasia 1+; Lymphocytes 2 % (20-55); Microcytosis Slight; Platelet Estimate Normal; Segmented Neutrophils 92 % (50-85); Total Cells Counted 100
[2020-02-01 06:42] LABS: Calcium 9.2 MG/DL (8.5-10.1); Osmolality,Calculated 273.4 MOS/KG (273-304)
[2020-02-01] MEDS ORDERED: SODIUM CHLORIDE 0.9% 1,000 ML IV PRN (07:31)
[2020-02-01] MEDS: METOPROLOL TARTRATE 50 MG TABLET PO SCH ×2 (08:28→20:02)
[2020-02-01] MEDS: HYDROXYCHLOROQUINE 200 MG TABLET PO SCH ×2 (08:28→20:02)
[2020-02-01] MEDS: ZINC SULFATE 220 MG CAPSULE PO SCH (08:29)
[2020-02-01] MEDS: HYDROCORTISONE 100 MG VIAL IV SCH ×2 (09:49→20:03)
[2020-02-01] MEDS: DILTIAZEM 90 MG TABLET PO SCH ×2 (12:07→17:23)
[2020-02-01] MEDS: PIPERACILLIN/TAZOBACTAM 3,375 MG in SODIUM CHLORIDE 0.9% 100 ML IV SCH ×2 (12:47→22:23)
[2020-02-01] MEDS ORDERED: VANCOMYCIN INJ 500 MG in SODIUM CHLORIDE 0.9% 100 ML IV ONE (14:00)
[2020-02-01] MEDS: HEPARIN DRIP 25,000 UNITS/500 ML PREMIX IV SCH (16:01)
[2020-02-01] MEDS: PANTOPRAZOLE 40 MG VIAL IV SCH (20:02)
[2020-02-02] MEDS: DILTIAZEM 90 MG TABLET PO SCH ×5 (01:07→23:38)
[2020-02-02] MEDS: INSULIN REGULAR 100 UNIT/ML SUBCUT SCH ×5 (01:08→17:43)
[2020-02-02] MEDS: NOREPINEPHRINE 8 MG in SODIUM CHLORIDE 0.9% 242 ML IV SCH ×2 (01:14→22:14)
[2020-02-02] MEDS: VALPROIC ACID INJ 500 MG in SODIUM CHLORIDE 0.9% 100 ML IV SCH ×3 (02:56→18:45)
[2020-02-02 04:46] LABS: ABG Base Excess 2.2 MMOL/L (-2.5-2.5); ABG HCO3 24.8 MMOL/L (20-26); ABG PCO2 30.9 MM HG (35-48); ABG PH 7.523 (7.35-7.45); ABG PO2 191.3 MM HG (80-95); ABG TCO2 25.8 MMOL/L (23-27)
[2020-02-02 05:29] LABS: Basophils % 0.2 % (0.0-0.8); Hematocrit 24.7 VOL% (35.7-47.0); Hemoglobin 7.6 GM/DL (12.0-16.0); Immature Granulocytes % 2.5 %; Immature Granulocytes Absolute 0.32 #; Lymphocytes # 0.4 10*3/uL (1.4-4.0); Lymphocytes % 2.8 % (21.3-54.2); Mean Corpuscular HGB Conc 30.8 GM/DL (32-36); Mean Corpuscular Volume 92.2 FL (87-102); Mean Platelet Volume 12.2 FL (9.6-12.0); Monocytes % 9.6 % (1.7-12.7); NRBC # 0.06 10*3/uL; Neutrophils % 84.9 % (38.7-73.9); Platelet Count 165 T/CUMM (130-400); Red Blood Count 2.68 MC/CUMM (3.8-5.5); Red Cell Distribution Width 18.7 % (9.3-17.3); White Blood Count 12.8 T/CUMM (4-12)
[2020-02-02 06:02] LABS: Calcium 9.4 MG/DL (8.5-10.1); Osmolality,Calculated 270.4 MOS/KG (273-304)
[2020-02-02 06:25] LABS: Band Neutrophils 5 % (0-10); Lymphocytes 2 % (20-55); Metamyelocytes 2 %; Nucleated Red Blood Cells 2 (0-5); Segmented Neutrophils 80 % (50-85); Total Cells Counted 100
[2020-02-02 06:26] LABS: Anisocytosis 2+; Basophilic Stippling Slight; Platelet Estimate Normal; Polychromasia Slight
[2020-02-02 06:27] LABS: Macrocytosis Slight
[2020-02-02] MEDS: HYDROCORTISONE 100 MG VIAL IV SCH ×2 (08:59→21:16)
[2020-02-02] MEDS: MIDAZOLAM 100 MG in SODIUM CHLORIDE 0.9% 80 ML IV PRN (09:00)
[2020-02-02] MEDS: HYDROXYCHLOROQUINE 200 MG TABLET PO SCH (09:01)
[2020-02-02] MEDS: METOPROLOL TARTRATE 50 MG TABLET PO SCH ×2 (09:01→21:16)
[2020-02-02] MEDS: HEPARIN DRIP 25,000 UNITS/500 ML PREMIX IV SCH ×2 (12:26→23:40)
[2020-02-02] MEDS: PIPERACILLIN/TAZOBACTAM 3,375 MG in SODIUM CHLORIDE 0.9% 100 ML IV SCH (12:32)
[2020-02-02] MEDS ORDERED: DIGOXIN 0.5 MG/2 ML AMP IV ONE ×2 (18:54→20:00)
[2020-02-02] MEDS: PANTOPRAZOLE 40 MG VIAL IV SCH (21:17)
[2020-02-02] MEDS ORDERED: ETOMIDATE 20 MG/10 ML VIAL IV ONE (23:21)
[2020-02-02] MEDS ORDERED: SUCCINYLCHOLINE 200 MG/10 ML VIAL ONE (23:21)
[2020-02-03] MEDS: VALPROIC ACID INJ 500 MG in SODIUM CHLORIDE 0.9% 100 ML IV SCH ×2 (03:10→09:32)
[2020-02-03] MEDS: DILTIAZEM 90 MG TABLET PO SCH ×2 (06:27→11:09)
[2020-02-03] MEDS: HYDROCORTISONE 100 MG VIAL IV SCH (08:19)
[2020-02-03] MEDS: METOPROLOL TARTRATE 50 MG TABLET PO SCH (08:20)
[2020-02-03] MEDS ORDERED: MORPHINE 4 MG/1 ML VIAL IV PRN (09:01)
[2020-02-03 11:10] VITALS: BP 157/50
[2020-02-03] MEDS: HEPARIN DRIP 25,000 UNITS/500 ML PREMIX IV SCH (12:20)
[2020-02-03] MEDS ORDERED: LORazepam 2 MG/1 ML VIAL ONE ×3 (15:58→18:26)
[2020-02-03] MEDS: LORazepam 2 MG/1 ML VIAL IV PRN ×3 (16:02→18:28)
[2020-02-03] MEDS: MORPHINE 4 MG/1 ML VIAL IV PRN ×4 (16:14→23:30)
[2020-02-04] MEDS: MORPHINE 4 MG/1 ML VIAL IV PRN ×2 (07:37→10:04)
== END 2020-02-04 11:19 | disposition expired | DRG 207 ==
LOC: EDBD → EDUNIT# → N.ED 18:54 → N.EDINP 21:17 → N.CC 21:47
PROVIDERS: ADMIT Internal Medicine; ATTEND Internal Medicine